=== PATIENT | female | born 1940 | race Caucasian/White ===

== ENCOUNTER 2016-06-14 09:46 | Outpatient (RCR) | payer MEDICARE ==
[2016-05-25 10:54] LABS: BASOPHILS # (AUTO) 0.1 10^3/uL (0.0-0.1); BASOPHILS % (AUTO) 1 % (0-10); EOSINOPHILS # (AUTO) 0.2 10^3/uL (0.0-0.3); EOSINOPHILS % (AUTO) 2 % (0-10); LYMPHOCYTES # (AUTO) 1.9 X 10^3 (1.0-4.0); LYMPHOCYTES % (AUTO) 24 % (12-44); MEAN CORPUSCULAR HEMOGLOBIN 30 PG (25-34); MEAN CORPUSCULAR HGB CONC 33 G/DL (32-36); MEAN CORPUSCULAR VOLUME 92 FL (80-99); MEAN PLATELET VOLUME 9.7 FL (7.4-10.4); MONOCYTES # (AUTO) 0.7 X 10^3 (0.0-1.0); MONOCYTES % (AUTO) 9 % (0-12); NEUTROPHILS # (AUTO) 4.9 X 10^3 (1.8-7.8); NEUTROPHILS % (AUTO) 64 % (42-75); PLATELET COUNT 251 10^3/uL (130-400); RED BLOOD COUNT 4.25 10^6/uL (4.35-5.85); RED CELL DISTRIBUTION WIDTH 14.1 % (10.0-14.5); WHITE BLOOD COUNT 7.8 10^3/uL (4.3-11.0)
[2016-05-25 11:43] LABS: ALBUMIN 4.1 G/DL (3.2-4.5); BILIRUBIN,TOTAL 0.6 MG/DL (0.1-1.0); CALCIUM 9.7 MG/DL (8.5-10.1)
[~2016-06-14 09:46] MED LIST: ALB.5NB20 HHN; ALPR.5T PO; ASP325T PO; CEFD300C3 PO; CHOL10002 PO; CPR500T PO; CYAN50003 PO; LEVO88TA26 PO; MELO-195 PO; MTF500T PO; MULT-974 PO; PIND5TAB PO; PRD20T PO; SIMV20TA3 PO; TEMA15CA54 PO; TRAM50TA2 PO; [UNRECOGNIZED DRUG - OTHER] PO
== END 2016-08-23 | disposition home or self-care (01) ==
LOC: ONC 09:46
PROVIDERS: ATTEND Internal Medicine Hematology & Oncology
DX: Z08 Encounter for follow-up examination after completed treatment for malignant neoplasm (principal); Z85.3 Personal history of malignant neoplasm of breast; I89.0 Lymphedema, not elsewhere classified; R91.8 Other nonspecific abnormal finding of lung field; E03.9 Hypothyroidism, unspecified; K21.9 Gastro-esophageal reflux disease without esophagitis; Z90.11 Acquired absence of right breast and nipple; Z79.899 Other long term (current) drug therapy
CPT/HCPCS: 36415; 80053; 85025; 86300; 99213; 99214

== ENCOUNTER 2016-07-29 15:44 | Outpatient (RCR) | payer MEDICARE | END 2016-08-23 14:40 | disposition home or self-care (01) | PROVIDERS: ATTEND Internal Medicine Hematology & Oncology | DX: I89.0 Lymphedema, not elsewhere classified (principal); Z85.3 Personal history of malignant neoplasm of breast; R91.8 Other nonspecific abnormal finding of lung field ==

== ENCOUNTER → 2016-09-02 | Outpatient (CLI) | payer MEDICARE ==
[~2016-09-02] MED LIST changes: +CATHETER FLUSH 10 ML SYR IV PRN
--- NOTE | 2016-09-02 16:15 | Diagnostic Imaging Report ---
Examination: Whole body bone scan. Technique: After the intravenous administration of 25 mCi of Technetium 99m MDP, whole body delayed phase bone scan images were obtained with lateral views of the head and neck and the chest regions. Indication: Breast cancer. Findings: The distribution of uptake in the osseous structures is physiologic with superimposed mild degenerative related activity seen and photopenia in the right knee suggestive of knee replacement with slightly more intense activity around the medial aspect of the tibial plateau area. There is also moderate uptake in the feet probably degenerative. No intense foci of increased activity, particularly in the axial skeleton to suggest metastatic disease. Urinary tract excretion is noted. Impression: No scintigraphic evidence of osseous metastasis. Dictated by: Dictated on workstation # [id number]
== END ==
LOC: CARD 12:03
PROVIDERS: ATTEND Internal Medicine
DX: G89.29 Other chronic pain (principal); R68.89 Other general symptoms and signs; Z85.3 Personal history of malignant neoplasm of breast
CPT/HCPCS: 78306

== ENCOUNTER 2016-10-25 09:39 | Outpatient (RCR) | payer MEDICARE ==
[2016-10-18 12:40] LABS: ALBUMIN 3.6 GM/DL (3.2-4.5); BILIRUBIN,TOTAL 0.6 MG/DL (0.1-1.0); CALCIUM 9.9 MG/DL (8.5-10.1); CREATININE SERUM 1.2 MG/DL (0.60-1.30); POTASSIUM 4.6 MMOL/L (3.6-5.0); TOTAL PROTEIN 6.5 GM/DL (6.4-8.2)
[2016-10-18 12:59] LABS: BASOPHILS % (AUTO) 0 % (0-10); EOSINOPHILS # (AUTO) 0.1 10^3/uL (0.0-0.3); EOSINOPHILS % (AUTO) 2 % (0-10); LYMPHOCYTES # (AUTO) 2.2 X 10^3 (1.0-4.0); LYMPHOCYTES % (AUTO) 25 % (12-44); MEAN CORPUSCULAR HEMOGLOBIN 31 PG (25-34); MEAN CORPUSCULAR HGB CONC 33 G/DL (32-36); MEAN CORPUSCULAR VOLUME 94 FL (80-99); MEAN PLATELET VOLUME 10.4 FL (7.4-10.4); MONOCYTES % (AUTO) 11 % (0-12); NEUTROPHILS # (AUTO) 5.5 X 10^3 (1.8-7.8); NEUTROPHILS % (AUTO) 62 % (42-75); PLATELET COUNT 278 10^3/uL (130-400); RED CELL DISTRIBUTION WIDTH 14.7 % (10.0-14.5); WHITE BLOOD COUNT 8.8 10^3/uL (4.3-11.0)
[~2016-10-25 09:39] MED LIST changes: -CATHETER FLUSH 10 ML SYR IV PRN
== END 2016-11-01 08:36 | disposition home or self-care (01) ==
LOC: ONC 09:39
PROVIDERS: ATTEND Internal Medicine Hematology & Oncology
DX: Z08 Encounter for follow-up examination after completed treatment for malignant neoplasm (principal); Z85.3 Personal history of malignant neoplasm of breast; I89.0 Lymphedema, not elsewhere classified; R91.8 Other nonspecific abnormal finding of lung field; E03.9 Hypothyroidism, unspecified; K21.9 Gastro-esophageal reflux disease without esophagitis; Z90.11 Acquired absence of right breast and nipple; Z79.899 Other long term (current) drug therapy
CPT/HCPCS: 36415; 80053; 85025; 86300; 99213

== ENCOUNTER → 2017-04-25 | Outpatient (CLI) | payer MEDICARE ==
[2017-04-25 14:10] LABS: BASOPHILS % (AUTO) 1 % (0-10); EOSINOPHILS # (AUTO) 0.2 10^3/uL (0.0-0.3); EOSINOPHILS % (AUTO) 3 % (0-10); HEMATOCRIT 33 % (35-52); HEMOGLOBIN 11.1 G/DL (11.5-16.0); LYMPHOCYTES % (AUTO) 29 % (12-44); MEAN CORPUSCULAR HEMOGLOBIN 31 PG (25-34); MEAN CORPUSCULAR HGB CONC 34 G/DL (32-36); MEAN CORPUSCULAR VOLUME 93 FL (80-99); MEAN PLATELET VOLUME 9.9 FL (7.4-10.4); MONOCYTES # (AUTO) 0.7 X 10^3 (0.0-1.0); MONOCYTES % (AUTO) 10 % (0-12); NEUTROPHILS % (AUTO) 58 % (42-75); PLATELET COUNT 287 10^3/uL (130-400); RED BLOOD COUNT 3.58 10^6/uL (4.35-5.85); RED CELL DISTRIBUTION WIDTH 13.9 % (10.0-14.5); WHITE BLOOD COUNT 6.9 10^3/uL (4.3-11.0)
[2017-04-25 14:31] LABS: ALANINE AMINOTRANSFERASE 16 U/L (0-55); ALBUMIN 3.8 GM/DL (3.2-4.5); ALKALINE PHOSPHATASE 51 U/L (40-136); BILIRUBIN,TOTAL < 0.1 MG/DL (0.1-1.0); BUN/CREATININE RATIO 18; CARBON DIOXIDE 28 MMOL/L (21-32); CHLORIDE 107 MMOL/L (98-107); CREATININE SERUM 1.22 MG/DL (0.60-1.30); GFR ESTIMATED 43; GLUCOSE 99 MG/DL (70-105); POTASSIUM 4.7 MMOL/L (3.6-5.0); SODIUM 139 MMOL/L (135-145); TOTAL PROTEIN 6.6 GM/DL (6.4-8.2)
== END ==
LOC: ONC 13:46
PROVIDERS: ATTEND Nurse Practitioner Adult Health
DX: Z08 Encounter for follow-up examination after completed treatment for malignant neoplasm (principal); Z85.3 Personal history of malignant neoplasm of breast; E03.9 Hypothyroidism, unspecified; K21.9 Gastro-esophageal reflux disease without esophagitis; Z90.11 Acquired absence of right breast and nipple; Z79.899 Other long term (current) drug therapy
CPT/HCPCS: 80053; 85025; 99213

== ENCOUNTER 2017-08-18 13:52 | Day surgery (SDC) | payer MEDICARE ==
[~2017-08-18] VITALS: Ht 168.9 cm; Wt 69.9 kg
--- OUTSIDE RECORDS SUMMARY | 2017-08-18 14:01 | XMS REPORT | Clinical Summary ---
Author Author [facility] Address Unknown Phone Unavailable Care Team Providers Care Rfid Engineer Name Role Phone Doctor, Miscellaneous Unavailable Unavailable Rosemary Osuna PA-C Unavailable Reynaldo Ordoñez MD Unavailable Tim Kaur MD Unavailable Martir Peterson MD Unavailable Celestino Arevalo MD Unavailable Sarabjit Pacheco MD Unavailable Earlene Armenta Unavailable Unavailable Zack Lowe MD Unavailable Chloe Alonso MD Unavailable Loida Reynolds RN Unavailable Unavailable Micki Hauser RN Unavailable Unavailable Argentina Trujillo LPN Unavailable Unavailable Mychart, Generic Provider Unavailable Unavailable Cecil Casanova MD Unavailable Grisel Dugan RN Unavailable Unavailable Malini Laureano Unavailable Unavailable Katharine Mauricio RN Unavailable Unavailable Annika King RN Unavailable Unavailable Emiliano Florez RN Unavailable Unavailable Pita Sheldon LPN Unavailable Unavailable Yaqueiln Alvarez MD Unavailable Yanira Fuchs MD PCP Source Comments Some departments are not documenting in the electronic medical record. If you do not see the information that you expected, contact Release of Information in the Health Information Management department at [phone] for further assistance in locating additional records.[facility] Allergies Active Allergy Reactions Severity Noted Date Comments Erythromycin RASH, SEE COMMENTS High 08/07/2012 Throat swelling, red rash Sulfa (Sulfonamide RASH, EDEMA High 07/22/2010 Throat swelling Antibiotics) Current Medications Prescription Sig. Disp. Refills Start End Date Status Date aspirin EC 325 mg tablet Take 325 mg by mouth Active daily. estrogens, conjugated(+) Insert or Apply 0.5 g to 1 Container 2 Active (PREMARIN) 0.625 mg/g vaginal area daily. Apply 15 vaginal cream 0.5g to the vagina, using the applicator, two times a week before bed. NEBULIZER ACCESSORIES Use as directed. Active MISC pindolol (VISKIN) 5 mg TAKE ONE TABLET BY MOUTH 90 Tab 1 03/21/19 Active tablet ONCE DAILY 16 clobetasol (TEMOVATE) APPLY A PEA SIZED AMOUNT 60 g 0 05/19/19 Active 0.05 % topical ointment THE THE VULVA DAILY 16 other medication Clobetasol 0.05% in 30 g 6 10/09/19 Active vaseline base apply BID x 16 4 weeks then taper as directed other medication Estradiol 0.01% in 50 g 3 10/09/19 Active vaseline base apply 0.5 16 gm to internal vulva twice weekly traMADol (ULTRAM) 50 mg TAKE ONE TABLET BY MOUTH 30 Tab 1 01/21/20 Active tablet EVERY 6 HOURS NEEDED 16 FOR PAIN meloxicam (MOBIC) 15 mg TAKE ONE TABLET BY MOUTH 30 Tab 0 04/13/19 Active tablet ONCE DAILY 17 levothyroxine (SYNTHROID) TAKE ONE TABLET BY MOUTH 90 Tab 3 04/29/19 Active 88 mcg tablet ONCE DAILY 30 MINUTES 17 BEFORE BREAKFAST meloxicam (MOBIC) 15 mg TAKE ONE TABLET BY MOUTH 30 Tab 1 04/29/19 Active tablet ONCE DAILY 17 temazepam (RESTORIL) 15 TAKE TWO CAPSULES BY 60 Cap 1 04/29/19 Active mg capsule MOUTH AT BEDTIME 17 NEEDED pindolol (VISKIN) 10 mg TAKE ONE-HALF TABLET BY 90 tablet 1 10/08/19 Active tablet MOUTH ONCE DAILY 17 Active Problems Problem Noted Date Pain disorder 10/22/2015 Discharge from the vagina 09/01/2015 Exposure of vaginal mesh through vaginal wall (HCC) 09/01/2015 Last Assessment & Plan: Doing well denies issues Content - PLAN FU in 6 mo Repeat pelvic examination Vulvar lesion 08/20/2015 Last Assessment & Plan: 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 Clinical improvement from Dr. Acharya's exam after stopping topical estrogen and clobetasol paradoxical and suggest there could have been an element of contact irritant dermatitis. One swab Done at the time of the exam negative for yeast. The left vulvar vestibule defect is most likely the prior bartholin's duct cyst marsupialization. 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 ([facility]) 04/17 Last Assessment & Plan: prior mesh exposure, s/p excision posterior wall Unable to appreciate any mesh exposure today - PLAN observe for now Rectocele, female 04/17/2012 Last Assessment & Plan: Stage II Symptomatic Having discomfort due to the posterior vaginal wall prolapse - yes Need for splinting - no Need for digitation - no Discussed need to avoid constipation and well as avoiding excessive Valsalva and weight management to ensure avoidance of worsening of prolapse Currently desires further management Suggested conservative management using pelvic floor physical therapy and support pessaries (whose results depend on the extent of the prolapse as well as the exact location in the posterior vaginal wall, with less improvement if closer to the vaginal opening) Mentioned surgical repairs involving houlton tissue repairs (using patient tissues and sutures) Mention mesh augmented repairs and discussed the FDA warning briefly (advised categorically against vaginally introduced mesh for posterior colporrhaphy based on literature) - PLAN Stressed to the patient that there is a recurrence of the prolapse at the site of the previous mesh excision and graft augmentation I suggested management of her diet and avoidance of constipation since she does not desire any surgical repairs. I stressed that with her vaginal sensitivity to pain as well as the erythema present we cannot proceed with a pessary placement. Uterine prolapse 04/17/2012 Dyspareunia, female 03/26/2012 Last Assessment & Plan: . Chronic pelvic pain in female 03/26/2012 Last Assessment & Plan: . Urinary tract infection 03/26/2012 Vaginal discharge 03/26/2012 Last Assessment & Plan: Persistent vaginal discharge pelvic examination only showing an area of erythema just past the introitus unable to assess for other sources of discharge today because the patient insisted on placing lidocaine jelly in the vagina prior to assessing her OneSwab was collected prior to the assessment No evidence of mesh exposure noted - PLAN I stressed to the patient that the mesh is not exposed and thus it is unlikely that it be the cause of the discharge however i did state that the pelvic examination Is limited due to the lidojet I suggested that the discharge could be due to the area of irritation in the vagina that is distant from the mesh implantation area Urinary tract infection, site not specified 03/26/2012 History of breast cancer 07/22/2010 Personal history of irradiation 07/22/2010 Dysphagia 07/22/2010 Resolved Problems Problem Noted Date Resolved Date DM (diabetes mellitus) (HCC) 05/08/2014 01/15/2016 Mass R alveolus 07/22/2010 11/27/2014 Immunizations Name Dates Previously Given Next Due Pneumococcal 11/27/2014 Vaccine([facility]/immunocompromised adult) Family History Medical History Relation Name Comments Basal Cell Carcinoma Father Cancer Father Cancer-Prostate Father Squamous Cell Carcinoma Father Stroke Father Arthritis-rheumatoid Maternal Grandfather Stroke Maternal Grandfather Arthritis-rheumatoid Maternal Grandmother Cancer-Colon Maternal Grandmother Cancer-Colon Maternal Uncle Basal Cell Carcinoma Mother Cancer Mother Squamous Cell Carcinoma Mother Stroke Paternal Grandmother Arthritis Son Relation Name Status Comments Father Maternal Grandfather Maternal Grandmother Maternal Uncle Mother Alive Paternal Grandmother Son Social History Tobacco Use Types Packs/Day Years Used Date Never Smoker Smokeless Tobacco: Never Used Tobacco Cessation: Counseling Given: No Alcohol Use Drinks/Week oz/Week Comments Yes seldom Sex Assigned at Date Recorded Not on file Last Filed Vital Signs Vital Sign Reading Time Taken Blood Pressure 122/73 01/15/2016 1:02 PM [facility] Pulse 80 01/15/2016 1:02 PM [facility] Temperature 36.4 C (97.6 F) 01/15/2016 1:02 PM [facility] Respiratory Rate 16 01/15/2016 1:02 PM [facility] Oxygen Saturation 95% 01/30/2015 3:06 PM [facility] Inhaled Oxygen - - Concentration Weight 71.6 kg (157 lb 12.8 oz) 01/15/2016 1:02 PM [facility] Height 163.8 cm (5' 4.49") 01/15/2016 1:02 PM [facility] Body Mass Index 26.68 01/15/2016 1:02 PM [facility] Plan of Treatment Health Maintenance Due Date Last Done Comments PERTUSSIS VACCINE 1951 TETANUS VACCINE 09/29/1959 SHINGLES RECOMBINANT 1992 VACCINE (1 of 2) PNEUMONIA (PCV13/PPSV23) 11/28/2015 11/27/2014 VACCINES (2 of 2 - PPSV23) BREAST CANCER SCREENING 03/12/2016 03/12/2015, 02/01/2014, 01/29/2013, Additional history exists PHYSICAL (COMPREHENSIVE) 01/14/2017 01/15/2016, 05/08/2014 (Previously EXAM completed) INFLUENZA VACCINE 11/07/2017 COLORECTAL CANCER 05/08/2021 05/09/2011 (Previously completed) SCREENING OSTEOPOROSIS SCREENING Addressed 05/08/2004 (Previously completed) Overridden with the intention of not completing the topic Results Not on filefrom Last 3 Months
--- OUTSIDE RECORDS SUMMARY | 2017-08-18 14:02 | XMS REPORT | Continuity of Care Document ---
Author Author [facility] Organization [facility] Address Unknown Phone Unavailable Allergies Active Description Code Type Severity Reaction Onset Reported/Identified Relationship to Patient Clinical Status Yes Sulfa (Sulfonamide Antibiotics) [id number] Drug Allergy Unknown N/A 2012 Yes erythromycin base [id number] Drug Allergy Unknown N/A 09/02/2016 Medications There is no data. Problems Date Dx Coded Attending Type Code Diagnosis Diagnosed By MARIELLA JESUS Ot E03.9 HYPOTHYROIDISM, UNSPECIFIED MARIELLA JESUS Ot I89.0 LYMPHEDEMA, NOT ELSEWHERE CLASSIFIED MARIELLA JESUS Ot K21.9 GASTRO-ESOPHAGEAL REFLUX DISEASE WITHOUT MARIELLA JESUS Ot R91.8 OTHER NONSPECIFIC ABNORMAL FINDING OF FÉLIX MARIELLA JESUS Ot Z08 ENCNTR FOR FOLLOW-UP EXAM AFTER TRTMT FO MARIELLA JESUS Ot Z79.899 OTHER CARE HOME (CURRENT) DRUG THERAPY MARIELLA JESUS Ot Z85.3 PERSONAL HISTORY OF MALIGNANT NEOPLASM O MARIELLA JESUS Ot Z90.11 ACQUIRED ABSENCE OF RIGHT BREAST AND NIP 01/06/1439 MARIELLA JESUS Ot I89.0 LYMPHEDEMA, NOT ELSEWHERE CLASSIFIED 01/06/1439 MARIELLA JESUS Ot R91.8 OTHER NONSPECIFIC ABNORMAL FINDING OF FÉLIX 01/06/1439 MARIELLA JESUS Ot Z85.3 PERSONAL HISTORY OF MALIGNANT NEOPLASM O 11/19/2010 Ot 562.10 DIVERTICULOSIS COLON (W/O MENT OF HEMORR 11/19/2010 Ot 569.3 RECTAL ANAL HEMORRHAGE 11/19/2010 Ot V12.72 PERSONAL HISTORY OF COLONIC POLYPS 06/15/2012 GATO BAILEY DO Ot 244.9 HYPOTHYROIDISM NOS 06/15/2012 ORENDER DO, GATO S Ot 250.00 DIAB PARESH WO COMPL, TYPE II OR UNSPEC TY 06/15/2012 ORENDER DO, GATO S Ot 401.9 HYPERTENSION NOS 06/15/2012 ORENDER DO, GATO S Ot 486 PNEUMONIA, ORGANISM NOS 06/15/2012 ORENDER DO, GATO S Ot 493.90 ASTHMA, UNSPECIFIED 06/15/2012 ORENDER DO, GATO S Ot 530.81 ESOPHAGEAL REFLUX 06/15/2012 ORENDER DO, GATO S Ot 564.1 IRRITABLE BOWEL SYNDROME 06/15/2012 ORENDER DO, GATO S Ot 784.0 HEADACHE 06/15/2012 ORENDER DO, GATO S Ot 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 06/15/2012 ORENDER DO, GATO S Ot V12.51 HX-VENOUS THROMBOSIS EMBOLISM 08/15/2012 ROLAND CAICEDO FACC, MAGGIE FACP CCDS Ot 244.9 HYPOTHYROIDISM NOS 08/15/2012 ROLAND CAICEDO FACC, MAGGIE FACP CCDS Ot 250.00 DIAB PARESH WO COMPL, TYPE II OR UNSPEC TY 08/15/2012 MAGGIE WATKINS MD, FACC FACP CCDS Ot 401.9 HYPERTENSION NOS 08/15/2012 ROLAND CAICEDO FACC, MAGGIE FACP CCDS Ot 414.01 CORONARY ATHEROSCLEROSIS OF [place] CORON 08/15/2012 ROLAND CAICEDO FACC, MAGGIE FACP CCDS Ot 530.81 ESOPHAGEAL REFLUX 08/15/2012 ROLAND CAICEDO FACC, MAGGIE FACP CCDS Ot 786.09 RESPIRATORY ABNORM NEC 08/15/2012 MAGGIE WATKINS MD, FACC FACP CCDS Ot V10.3 HX OF BREAST MALIGNANCY 08/15/2012 MAGGIE WATKINS MD, FACC FACP CCDS Ot V15.3 HX OF IRRADIATION 08/15/2012 MAGGIE WATKINS MD, FACC FACP CCDS Ot V17.49 FAMILY HISTORY OF OTHER CARDIOVASCULAR D 08/15/2012 MAGGIE WATKINS MD, FACC FACP CCDS Ot V58.66 LONG-TERM (CURRENT) USE OF ASPIRIN 08/15/2012 MAGGIE WATKINS MD, FACC FACP CCDS Ot V58.69 OTH MED,LT,CURRENT USE 08/15/2012 MAGGIE WATKINS MD, FACC FACP CCDS Ot V87.41 PERSONAL HISTORY OF ANTINEOPLASTIC CHEMO 09/04/2012 NINI HUGHES MD Ot 244.9 HYPOTHYROIDISM NOS 09/04/2012 NINI HUGHES MD Ot 250.00 DIAB PARESH WO COMPL, TYPE II OR UNSPEC TY 09/04/2012 NINI HUGHES MD Ot 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 09/04/2012 NINI HUGHES MD Ot 365.70 GLAUCOMA STAGE, UNSPECIFIED 09/04/2012 NINI HUGHES MD Ot 784.0 HEADACHE 09/04/2012 NINI HUGHES MD Ot V12.51 HX-VENOUS THROMBOSIS EMBOLISM 07/26/2014 FRANKLIN CAICEDO, BARB R Ot 722.4 08/08/2014 FRANKLIN CAICEDO, BARB R Ot 722.4 08/15/2014 FRANKLIN CAICEDO, BARB R Ot 722.4 01/28/2015 GARRETT CAICEDO, JEFFERSON Mercado Ot K85.9 ACUTE PANCREATITIS, UNSPECIFIED 01/28/2015 GARRETT CAICEDO, JEFFERSON Mercado Ot Z98.89 OTHER SPECIFIED POSTPROCEDURAL STATES 05/25/2016 Ot 719.40 JOINT PAIN- UNSPEC 05/25/2016 Ot V10.3 HX OF BREAST MALIGNANCY 05/25/2016 Ot 719.40 JOINT PAIN- UNSPEC 05/25/2016 Ot 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 DISC DEGEN 05/25/2016 Ot V10.3 HX OF BREAST MALIGNANCY 05/25/2016 Ot 616.0 CERVICITIS 05/25/2016 Ot 625.9 FEM GENITAL SYMPTOMS NOS 05/25/2016 GATO BAILEY DO Ot 786.05 SHORTNESS OF BREATH 05/25/2016 GATO BAILEY DO Ot 786.2 COUGH 05/25/2016 ROLAND CAICEDO FACC, MAGGIE FACP CCDS Ot 250.00 DIAB PARESH WO COMPL, TYPE II OR UNSPEC TY 05/25/2016 ROLAND CAICEDO FACC, MAGGIE FACP CCDS Ot 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 05/25/2016 ROLAND CAICEDO FACC, ALI FACP CCDS Ot 397.0 TRICUSPID VALVE DISEASE 05/25/2016 ROLAND CAICEDO FACC, MAGGIE FACP CCDS Ot 786.09 RESPIRATORY ABNORM NEC 05/25/2016 ROLAND CAICEDO FACC, ALI FACP CCDS Ot V72.81 [id number] CARDIOVASCULAR 05/25/2016 CHRISTIANONDER , GATO S Ot 486 PNEUMONIA, ORGANISM NOS 05/25/2016 CHRISTIANONDER DO, GATO S Ot 786.05 SHORTNESS OF BREATH 05/25/2016 CHRISTIANONDER DO, GATO S Ot V10.3 HX OF BREAST MALIGNANCY 05/25/2016 CHRISTIANONDER DO, GATO S Ot 786.2 COUGH 05/25/2016 CHRISTIANONDER DO, GATO S Ot 789.00 ABDOMINAL PAIN, UNSPECIFIED SITE 05/25/2016 CHRISTIANONDER DO, GATO S Ot V10.3 HX OF BREAST MALIGNANCY 05/25/2016 CHRISTIANONDER DO, GATO S Ot 573.8 LIVER DISORDERS NEC 05/25/2016 FRANKLIN CAICEDO, BARB R Ot 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 DISC DEGEN 06/30/2016 MARIELLA JESUS N Ot E03.9 HYPOTHYROIDISM, UNSPECIFIED 06/30/2016 MARIELLA JESUS N Ot I89.0 LYMPHEDEMA, NOT ELSEWHERE CLASSIFIED 06/30/2016 MARIELLA JESUS Ot K21.9 GASTRO-ESOPHAGEAL REFLUX DISEASE WITHOUT 06/30/2016 MARIELLA JESUS N Ot R91.8 OTHER NONSPECIFIC ABNORMAL FINDING OF FÉLIX 06/30/2016 MARIELLA JESUS N Ot Z08 ENCNTR FOR FOLLOW-UP EXAM AFTER TRTMT FO 06/30/2016 MARIELLA JESUS Ot Z79.899 OTHER CARE HOME (CURRENT) DRUG THERAPY 06/30/2016 MARIELLA JESUS N Ot Z85.3 PERSONAL HISTORY OF MALIGNANT NEOPLASM O 06/30/2016 MARIELLA JESUS N Ot Z90.11 ACQUIRED ABSENCE OF RIGHT BREAST AND NIP 07/07/2016 MARIELLA JESUS N Ot E03.9 HYPOTHYROIDISM, UNSPECIFIED 07/07/2016 MARIELLA JESUS N Ot I89.0 LYMPHEDEMA, NOT ELSEWHERE CLASSIFIED 07/07/2016 MARIELLA JESUS N Ot K21.9 GASTRO-ESOPHAGEAL REFLUX DISEASE WITHOUT 07/07/2016 ANN MARIE BOBDOUG N Ot R91.8 OTHER NONSPECIFIC ABNORMAL FINDING OF FÉLIX 07/07/2016 MARIELLA JESUS N Ot Z08 ENCNTR FOR FOLLOW-UP EXAM AFTER TRTMT FO 07/07/2016 MARIELLA JESUS N Ot Z79.899 OTHER FURNACE HAND (CURRENT) DRUG THERAPY 07/07/2016 ANN MARIE, BOBAN N Ot Z85.3 PERSONAL HISTORY OF MALIGNANT NEOPLASM O 07/07/2016 ANN MARIE BOBAN N Ot Z90.11 ACQUIRED ABSENCE OF RIGHT BREAST AND NIP 07/30/2016 ANN MARIE BOBAN N Ot I89.0 LYMPHEDEMA, NOT ELSEWHERE CLASSIFIED 07/30/2016 ANN MARIE BOBAN N Ot R91.8 OTHER NONSPECIFIC ABNORMAL FINDING OF FÉLIX 07/30/2016 ANN MARIE BOBAN N Ot Z85.3 PERSONAL HISTORY OF MALIGNANT NEOPLASM O 08/23/2016 ANN MARIE BOBAN N Ot E03.9 HYPOTHYROIDISM, UNSPECIFIED 08/23/2016 ANN MARIE BOBAN N Ot I89.0 LYMPHEDEMA, NOT ELSEWHERE CLASSIFIED 08/23/2016 ANN MARIE BOBAN N Ot K21.9 GASTRO-ESOPHAGEAL REFLUX DISEASE WITHOUT 08/23/2016 ANN MARIE, BOBAN N Ot R91.8 OTHER NONSPECIFIC ABNORMAL FINDING OF FÉLIX 08/23/2016 ANN MARIE, BOBAN N Ot Z08 ENCNTR FOR FOLLOW-UP EXAM AFTER TRTMT FO 08/23/2016 ANN MARIE BOBAN N Ot Z79.899 OTHER FURNACE HAND (CURRENT) DRUG THERAPY 08/23/2016 ANN MARIE BOBAN N Ot Z85.3 PERSONAL HISTORY OF MALIGNANT NEOPLASM O 08/23/2016 ANN MARIE BOBAN N Ot Z90.11 ACQUIRED ABSENCE OF RIGHT BREAST AND NIP 08/23/2016 ANN MARIE BOBAN N Ot I89.0 LYMPHEDEMA, NOT ELSEWHERE CLASSIFIED 08/23/2016 ANN MARIE BOBAN N Ot R91.8 OTHER NONSPECIFIC ABNORMAL FINDING OF FÉLIX 08/23/2016 ANN MARIEMARIELLA N Ot Z85.3 PERSONAL HISTORY OF MALIGNANT NEOPLASM O 09/02/2016 ANN MARIE BOBAN N Ot E03.9 HYPOTHYROIDISM, UNSPECIFIED 09/02/2016 ANN MARIE BOBAN N Ot I89.0 LYMPHEDEMA, NOT ELSEWHERE CLASSIFIED 09/02/2016 ANN MARIE BOBAN N Ot K21.9 GASTRO-ESOPHAGEAL REFLUX DISEASE WITHOUT 09/02/2016 ANN MARIE, BOBAN N Ot R91.8 OTHER NONSPECIFIC ABNORMAL FINDING OF FÉLIX 09/02/2016 ANN MARIE BOBAN N Ot Z08 ENCNTR FOR FOLLOW-UP EXAM AFTER TRTMT FO 09/02/2016 ANN MARIE BOBAN N Ot Z79.899 OTHER FURNACE HAND (CURRENT) DRUG THERAPY 09/02/2016 ANN MARIE, BOBAN N Ot Z85.3 PERSONAL HISTORY OF MALIGNANT NEOPLASM O 09/02/2016 MARIELLA JESUS Adelaide Ot Z90.11 ACQUIRED ABSENCE OF RIGHT BREAST AND NIP 09/07/2016 VERONIQUE ALEXANDRE MD Ot G89.29 OTHER CHRONIC PAIN 09/07/2016 VERONIQUE ALEXANDRE MD Ot R68.89 OTHER GENERAL SYMPTOMS AND SIGNS 09/07/2016 VERONIQUE ALEXANDRE MD Ot Z85.3 PERSONAL HISTORY OF MALIGNANT NEOPLASM O 09/07/2016 VERONIQUE ALEXANDRE MD Ot G89.29 OTHER CHRONIC PAIN 09/07/2016 VERONIQUE ALEXANDRE MD Ot R68.89 OTHER GENERAL SYMPTOMS AND SIGNS 09/07/2016 VERONIQUE ALEXANDRE MD Ot Z85.3 PERSONAL HISTORY OF MALIGNANT NEOPLASM O 09/07/2016 VERONIQUE ALEXANDRE MD Ot G89.29 OTHER CHRONIC PAIN 09/07/2016 VERONIQUE ALEXANDRE MD Ot R68.89 OTHER GENERAL SYMPTOMS AND SIGNS 09/07/2016 VERONIQUE ALEXANDRE MD Ot Z85.3 PERSONAL HISTORY OF MALIGNANT NEOPLASM O 09/07/2016 VERONIQUE ALEXANDRE MD Ot G89.29 OTHER CHRONIC PAIN 09/07/2016 VERONIQUE ALEXANDRE MD Ot R68.89 OTHER GENERAL SYMPTOMS AND SIGNS 09/07/2016 VERONIQUE AELXANDRE MD Ot Z85.3 PERSONAL HISTORY OF MALIGNANT NEOPLASM O 10/01/2016 VERONIQUE ALEXANDRE MD Ot G89.29 OTHER CHRONIC PAIN 10/01/2016 VERONIQUE ALEXANDRE MD Ot R68.89 OTHER GENERAL SYMPTOMS AND SIGNS 10/01/2016 VERONIQUE ALEXANDRE MD Ot Z85.3 PERSONAL HISTORY OF MALIGNANT NEOPLASM O 10/04/2016 VERONIQUE ALEXANDRE MD Ot G89.29 OTHER CHRONIC PAIN 10/04/2016 VERONIQUE ALEXANDRE MD Ot R68.89 OTHER GENERAL SYMPTOMS AND SIGNS 10/04/2016 VERONIQUE ALEXANDRE MD Ot Z85.3 PERSONAL HISTORY OF MALIGNANT NEOPLASM O 10/15/2016 RYLANDER GATO NAYLOR S Ot 786.05 SHORTNESS OF BREATH 10/15/2016 GATO BAILEY DO S Ot 786.2 COUGH 10/15/2016 ROLAND CAICEDO FACZaheer, MAGGIE FACP CCDS Ot 250.00 DIAB PARESH WO COMPL, TYPE II OR UNSPEC TY 10/15/2016 ROLAND CAICEDO FACC, MAGGIE FACP CCDS Ot 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 10/15/2016 ROLAND CAICEDO [facility], [facility] CCDS Ot 397.0 TRICUSPID VALVE DISEASE 10/15/2016 ROLAND CAICEDO [facility], [facility] CCDS Ot 786.09 RESPIRATORY ABNORM NEC 10/15/2016 ROLAND CAICEDO [facility], [facility] CCDS Ot V72.81 [id number] CARDIOVASCULAR 10/15/2016 ORENDER DO, GATO S Ot 486 PNEUMONIA, ORGANISM NOS 10/15/2016 ORENDER DO, GATO S Ot 786.05 SHORTNESS OF BREATH 10/15/2016 ORENDER DO, GATO S Ot V10.3 HX OF BREAST MALIGNANCY 10/15/2016 ORENDER DO, GATO S Ot 786.2 COUGH 10/15/2016 ORENDER DO, GATO S Ot 789.00 ABDOMINAL PAIN, UNSPECIFIED SITE 10/15/2016 ORENDER DO, GATO S Ot V10.3 HX OF BREAST MALIGNANCY 10/15/2016 ORENDER DO, GATO S Ot 573.8 LIVER DISORDERS NEC 10/15/2016 FRANKLIN CAICEDO, BARB R Ot 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 DISC DEGEN 10/15/2016 MARIELLA JESUS Ot E03.9 HYPOTHYROIDISM, UNSPECIFIED 10/15/2016 MARIELLA JESUS Ot I89.0 LYMPHEDEMA, NOT ELSEWHERE CLASSIFIED 10/15/2016 MARIELLA JESUS Ot K21.9 GASTRO-ESOPHAGEAL REFLUX DISEASE WITHOUT 10/15/2016 MARIELLA JESUS Ot R91.8 OTHER NONSPECIFIC ABNORMAL FINDING OF FÉLIX 10/15/2016 MARIELLA JESUS Ot Z08 ENCNTR FOR FOLLOW-UP EXAM AFTER TRTMT FO 10/15/2016 MARIELLA JESUS Ot Z79.899 OTHER FURNACE HAND (CURRENT) DRUG THERAPY 10/15/2016 MARIELLA JESUS Ot Z85.3 PERSONAL HISTORY OF MALIGNANT NEOPLASM O 10/15/2016 MARIELLA JESUS Ot Z90.11 ACQUIRED ABSENCE OF RIGHT BREAST AND NIP 10/15/2016 VERONIQUE ALEXANDRE MD Ot G89.29 OTHER CHRONIC PAIN 10/15/2016 VERONIQUE ALEXANDRE MD Ot R68.89 OTHER GENERAL SYMPTOMS AND SIGNS 10/15/2016 VERONIQUE ALEXANDRE MD Ot Z85.3 PERSONAL HISTORY OF MALIGNANT NEOPLASM O 10/18/2016 LEO NAYLOR GATO S Ot 786.05 SHORTNESS OF BREATH 10/18/2016 LEO NAYLOR GATO S Ot 786.2 COUGH 10/18/2016 ROLAND MARRERO, MAGGIE FACP CCDS Ot 250.00 DIAB PARESH WO COMPL, TYPE II OR UNSPEC TY 10/18/2016 ROLAND MARRERO, ALI FACP CCDS Ot 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 10/18/2016 ROLAND CAICEDO FACC, ALI FACP CCDS Ot 397.0 TRICUSPID VALVE DISEASE 10/18/2016 ROLAND CAICEDO [facility], ALI FACP CCDS Ot 786.09 RESPIRATORY ABNORM NEC 10/18/2016 ROLAND MARRERO, ALI FACP CCDS Ot V72.81 [id number] CARDIOVASCULAR 10/18/2016 RICCARDO BAILEY DOLINE S Ot 486 PNEUMONIA, ORGANISM NOS 10/18/2016 RYLANDANNETTE NAYLOR GATO S Ot 786.05 SHORTNESS OF BREATH 10/18/2016 RICCARDO BAILEY DOLINE S Ot V10.3 HX OF BREAST MALIGNANCY 10/18/2016 LEO VIANNEYGATO S Ot 786.2 COUGH 10/18/2016 RYLANDANNETTE NAYLOR GATO S Ot 789.00 ABDOMINAL PAIN, UNSPECIFIED SITE 10/18/2016 VIANNEY BAILEY DOQUELINE S Ot V10.3 HX OF BREAST MALIGNANCY 10/18/2016 LEO GATO S Ot 573.8 LIVER DISORDERS NEC 10/18/2016 FRANKLIN CAICEDO, BARB R Ot 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 DISC DEGEN 10/18/2016 MARIELLA JESUS Ot E03.9 HYPOTHYROIDISM, UNSPECIFIED 10/18/2016 MARIELLA JESUS Ot I89.0 LYMPHEDEMA, NOT ELSEWHERE CLASSIFIED 10/18/2016 MARIELLA JESUS Ot K21.9 GASTRO-ESOPHAGEAL REFLUX DISEASE WITHOUT 10/18/2016 MARIELLA JESUS Ot R91.8 OTHER NONSPECIFIC ABNORMAL FINDING OF FÉLIX 10/18/2016 MARIELLA JESUS Ot Z08 ENCNTR FOR FOLLOW-UP EXAM AFTER TRTMT FO 10/18/2016 MARIELLA JESUS Ot Z79.899 OTHER FURNACE HAND (CURRENT) DRUG THERAPY 10/18/2016 MARIELLA JESUS Ot Z85.3 PERSONAL HISTORY OF MALIGNANT NEOPLASM O 10/18/2016 MARIELLA JESUS Ot Z90.11 ACQUIRED ABSENCE OF RIGHT BREAST AND NIP 10/18/2016 VERONIQUE ALEXANDRE MD Ot G89.29 OTHER CHRONIC PAIN 10/18/2016 VERONIQUE ALEXANDRE MD Ot R68.89 OTHER GENERAL SYMPTOMS AND SIGNS 10/18/2016 VERONIQUE ALEXANDRE MD Ot Z85.3 PERSONAL HISTORY OF MALIGNANT NEOPLASM O 11/01/2016 MARIELLA JESUS Ot E03.9 HYPOTHYROIDISM, UNSPECIFIED 11/01/2016 MARIELLA JESUS Ot I89.0 LYMPHEDEMA, NOT ELSEWHERE CLASSIFIED 11/01/2016 MARIELLA JESUS Ot K21.9 GASTRO-ESOPHAGEAL REFLUX DISEASE WITHOUT 11/01/2016 MARIELLA JESUS Ot R91.8 OTHER NONSPECIFIC ABNORMAL FINDING OF FÉLIX 11/01/2016 MARIELLA JESUS Ot Z08 ENCNTR FOR FOLLOW-UP EXAM AFTER TRTMT FO 11/01/2016 MARIELLA JESUS Adelaide Ot Z79.899 OTHER CARE HOME (CURRENT) DRUG THERAPY 11/01/2016 MARIELLA JESUS [place] Ot Z85.3 PERSONAL HISTORY OF MALIGNANT NEOPLASM O 11/01/2016 MARIELLA JESUS N Ot Z90.11 ACQUIRED ABSENCE OF RIGHT BREAST AND NIP 04/26/2017 ANDREY LUCAS PERSONNEL QUALITY ASSURANCE AUDITOR Ot E03.9 HYPOTHYROIDISM, UNSPECIFIED 04/26/2017 ANDREY LUCAS S PERSONNEL QUALITY ASSURANCE AUDITOR Ot K21.9 GASTRO-ESOPHAGEAL REFLUX DISEASE WITHOUT 04/26/2017 ANDREY LUCAS PERSONNEL QUALITY ASSURANCE AUDITOR Ot Z08 ENCNTR FOR FOLLOW-UP EXAM AFTER TRTMT FO 04/26/2017 ANDREY LUCAS PERSONNEL QUALITY ASSURANCE AUDITOR Ot Z79.899 OTHER FURNACE HAND (CURRENT) DRUG THERAPY 04/26/2017 ANDREY LUCAS S PERSONNEL QUALITY ASSURANCE AUDITOR Ot Z85.3 PERSONAL HISTORY OF MALIGNANT NEOPLASM O 04/26/2017 ANDREY LUCAS S PERSONNEL QUALITY ASSURANCE AUDITOR Ot Z90.11 ACQUIRED ABSENCE OF RIGHT BREAST AND NIP 05/01/2017 ANDREY LUCAS PERSONNEL QUALITY ASSURANCE AUDITOR Ot E03.9 HYPOTHYROIDISM, UNSPECIFIED 05/01/2017 ANDREY LUCAS PERSONNEL QUALITY ASSURANCE AUDITOR Ot K21.9 GASTRO-ESOPHAGEAL REFLUX DISEASE WITHOUT 05/01/2017 ANDREY LUCAS S PERSONNEL QUALITY ASSURANCE AUDITOR Ot Z08 ENCNTR FOR FOLLOW-UP EXAM AFTER TRTMT FO 05/01/2017 ANDREY LUCAS PERSONNEL QUALITY ASSURANCE AUDITOR Ot Z79.899 OTHER FURNACE HAND (CURRENT) DRUG THERAPY 05/01/2017 ANDREY LUCAS PERSONNEL QUALITY ASSURANCE AUDITOR Ot Z85.3 PERSONAL HISTORY OF MALIGNANT NEOPLASM O 05/01/2017 ANDREY LUCAS PERSONNEL QUALITY ASSURANCE AUDITOR Ot Z90.11 ACQUIRED ABSENCE OF RIGHT BREAST AND NIP 05/26/2017 ANDREY LUCAS PERSONNEL QUALITY ASSURANCE AUDITOR Ot E03.9 HYPOTHYROIDISM, UNSPECIFIED 05/26/2017 ANDREY LUCAS PERSONNEL QUALITY ASSURANCE AUDITOR Ot K21.9 GASTRO-ESOPHAGEAL REFLUX DISEASE WITHOUT 05/26/2017 ANDREY LUCAS PERSONNEL QUALITY ASSURANCE AUDITOR Ot Z08 ENCNTR FOR FOLLOW-UP EXAM AFTER TRTMT FO 05/26/2017 ANDREY LUCASP Ot Z79.899 OTHER FURNACE HAND (CURRENT) DRUG THERAPY 05/26/2017 ANDREY LUCAS PERSONNEL QUALITY ASSURANCE AUDITOR Ot Z85.3 PERSONAL HISTORY OF MALIGNANT NEOPLASM O 05/26/2017 ANDREY LUCAS PERSONNEL QUALITY ASSURANCE AUDITOR Ot Z90.11 ACQUIRED ABSENCE OF RIGHT BREAST AND NIP 06/01/2017 Ot 518.89 06/01/2017 Ot 573.8 06/01/2017 Ot 733.90 06/01/2017 Ot 784.2 SWELLING IN HEAD NECK 06/01/2017 Ot 787.20 DYSPHAGIA, UNSPECIFIED 06/01/2017 Ot 719.40 JOINT PAIN- UNSPEC 06/01/2017 Ot V10.3 HX OF BREAST MALIGNANCY 06/01/2017 Ot 719.40 JOINT PAIN- UNSPEC 06/01/2017 Ot 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 DISC DEGEN 06/01/2017 Ot V10.3 HX OF BREAST MALIGNANCY 06/01/2017 Ot 616.0 CERVICITIS 06/01/2017 Ot 625.9 FEM GENITAL SYMPTOMS NOS 06/01/2017 GATO BAILEY DO S Ot 786.05 SHORTNESS OF BREATH 06/01/2017 GATO BAILEY DO S Ot 786.2 COUGH 06/01/2017 ROLAND CAICEDO FACC, MAGGIE FACP CCDS Ot 250.00 DIAB PARESH WO COMPL, TYPE II OR UNSPEC TY 06/01/2017 ROLAND CAICEDO FACC, MAGGIE FACP CCDS Ot 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 06/01/2017 ROLAND CAICEDO FACC, MAGGIE FACP CCDS Ot 397.0 TRICUSPID VALVE DISEASE 06/01/2017 ROLAND CAICEDO FACC, MAGGIE KHOURY CCDS Ot 786.09 RESPIRATORY ABNORM NEC 06/01/2017 ROLAND CAICEDO FACC, MAGGIE KHOURY CCDS Ot V72.81 IGRG-[id number] CARDIOVASCULAR 06/01/2017 LEO NAYLOR GATO S Ot 486 PNEUMONIA, ORGANISM NOS 06/01/2017 LEO NAYLOR GATO S Ot 786.05 SHORTNESS OF BREATH 06/01/2017 LEO NAYLOR GATO S Ot V10.3 HX OF BREAST MALIGNANCY 06/01/2017 LEO NAYLOR, GATO S Ot 786.2 COUGH 06/01/2017 LEO NAYLOR, GATO S Ot 789.00 ABDOMINAL PAIN, UNSPECIFIED SITE 06/01/2017 LEO NAYLOR GATO S Ot V10.3 HX OF BREAST MALIGNANCY 06/01/2017 LEO NAYLOR, GATO S Ot 573.8 LIVER DISORDERS NEC 06/01/2017 FRANKLIN CAICEDO, BARB Ewing Ot 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 DISC DEGEN 06/01/2017 ANDREY LUCAS PERSONNEL QUALITY ASSURANCE AUDITOR Ot E03.9 HYPOTHYROIDISM, UNSPECIFIED 06/01/2017 ANDREY LUCAS PERSONNEL QUALITY ASSURANCE AUDITOR Ot K21.9 GASTRO-ESOPHAGEAL REFLUX DISEASE WITHOUT 06/01/2017 ANDREY LUCAS PERSONNEL QUALITY ASSURANCE AUDITOR Ot Z08 ENCNTR FOR FOLLOW-UP EXAM AFTER TRTMT FO 06/01/2017 ANDREY LUCAS PERSONNEL QUALITY ASSURANCE AUDITOR Ot Z79.899 OTHER CARE HOME (CURRENT) DRUG THERAPY 06/01/2017 ANDREY LUCAS PERSONNEL QUALITY ASSURANCE AUDITOR Ot Z85.3 PERSONAL HISTORY OF MALIGNANT NEOPLASM O 06/01/2017 ANDREY LUCAS PERSONNEL QUALITY ASSURANCE AUDITOR Ot Z90.11 ACQUIRED ABSENCE OF RIGHT BREAST AND NIP 06/01/2017 CHRISTIANOKIMBERLY NAYLOR GATO S Ot 786.05 SHORTNESS OF BREATH 06/01/2017 CHRISTIANOKIMBERLY DO GATO S Ot 786.2 COUGH 06/01/2017 ROLAND CAICEDO FACC, MAGGIE MARREROP CCDS Ot 250.00 DIAB PARESH WO COMPL, TYPE II OR UNSPEC TY 06/01/2017 ROLAND CAICEDO FACC, MAGGIE FACP CCDS Ot 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 06/01/2017 ROLAND CAICEDO FACC, MAGGIE MARREROP CCDS Ot 397.0 TRICUSPID VALVE DISEASE 06/01/2017 ROLAND CAICEDO FACC, MAGGIE MARREROP CCDS Ot 786.09 RESPIRATORY ABNORM NEC 06/01/2017 ROLAND CAICEDO [facility], [facility] CCD[facility] Ot V72.81 [id number] CARDIOVASCULAR 06/01/2017 CHRISTIANONDER , GATO S Ot 486 PNEUMONIA, ORGANISM NOS 06/01/2017 CHRISTIANONDER DO, GATO S Ot 786.05 SHORTNESS OF BREATH 06/01/2017 CHRISTIANONDER DO, GATO S Ot V10.3 HX OF BREAST MALIGNANCY 06/01/2017 CHRISTIANONDER DO, GATO S Ot 786.2 COUGH 06/01/2017 ORENDER DO, GATO S Ot 789.00 ABDOMINAL PAIN, UNSPECIFIED SITE 06/01/2017 CHRISTIANONDER DO, GATO S Ot V10.3 HX OF BREAST MALIGNANCY 06/01/2017 CHRISTIANONDER DO, GATO S Ot 573.8 LIVER DISORDERS NEC 06/01/2017 FRANKLIN CAICEDO, BARB Ewing Ot 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 DISC DEGEN 06/01/2017 VERONIQUE ALEXANDRE MD Ot G89.29 OTHER CHRONIC PAIN 06/01/2017 VERONIQUE ALEXANDRE MD Ot R68.89 OTHER GENERAL SYMPTOMS AND SIGNS 06/01/2017 VERONIQUE ALEXANDRE MD Ot Z85.3 PERSONAL HISTORY OF MALIGNANT NEOPLASM O 06/01/2017 ANDREY LUCAS PERSONNEL QUALITY ASSURANCE AUDITOR Ot E03.9 HYPOTHYROIDISM, UNSPECIFIED 06/01/2017 ANDREY LUCAS PERSONNEL QUALITY ASSURANCE AUDITOR Ot K21.9 GASTRO-ESOPHAGEAL REFLUX DISEASE WITHOUT 06/01/2017 ANDREY LUCAS PERSONNEL QUALITY ASSURANCE AUDITOR Ot Z08 ENCNTR FOR FOLLOW-UP EXAM AFTER TRTMT FO 06/01/2017 ANDREY LUCAS PERSONNEL QUALITY ASSURANCE AUDITOR Ot Z79.899 OTHER FURNACE HAND (CURRENT) DRUG THERAPY 06/01/2017 ANDREY LUCAS PERSONNEL QUALITY ASSURANCE AUDITOR Ot Z85.3 PERSONAL HISTORY OF MALIGNANT NEOPLASM O 06/01/2017 ANDREY LUCAS PERSONNEL QUALITY ASSURANCE AUDITOR Ot Z90.11 ACQUIRED ABSENCE OF RIGHT BREAST AND NIP 08/18/2017 CHRISTIANONDER DO, GATO S Ot 786.05 SHORTNESS OF BREATH 08/18/2017 CHRISTIANONDER DO, GATO S Ot 786.2 COUGH 08/18/2017 ROLAND CAICEDO [facility] Ot 250.00 DIAB PARESH WO COMPL, TYPE II OR UNSPEC TY 08/18/2017 ROLAND CAICEDO FACC, MAGGIE KHOURY CCDS Ot 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 08/18/2017 ROLAND CAICEDO FACC, MAGGIE MARREROP CCDS Ot 397.0 TRICUSPID VALVE DISEASE 08/18/2017 ROLAND CAICEDO FACC, MAGGIE MARREROP CCDS Ot 786.09 RESPIRATORY ABNORM NEC 08/18/2017 ROLAND CAICEDO FACC, MAGGIE MARREROP CCDS Ot V72.81 XPFD-[id number] CARDIOVASCULAR 08/18/2017 ORENDER DO, GATO S Ot 486 PNEUMONIA, ORGANISM NOS 08/18/2017 ORENDER DO, GATO S Ot 786.05 SHORTNESS OF BREATH 08/18/2017 ORENDER DO, GATO S Ot V10.3 HX OF BREAST MALIGNANCY 08/18/2017 ORENDER DO, GATO S Ot 786.2 COUGH 08/18/2017 ORENDER DO, GATO S Ot 789.00 ABDOMINAL PAIN, UNSPECIFIED SITE 08/18/2017 ORENDER DO, GATO S Ot V10.3 HX OF BREAST MALIGNANCY 08/18/2017 CHRISTIANONDER DO, GATO S Ot 573.8 LIVER DISORDERS NEC 08/18/2017 FRANKLIN CAICEDO, BARB Ewing Ot 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 DISC DEGEN 08/18/2017 BALDOMERO CAICEDO, VERONIQUE Ot G89.29 OTHER CHRONIC PAIN 08/18/2017 BALDOMERO CAICEDO, VERONIQUE Ot R68.89 OTHER GENERAL SYMPTOMS AND SIGNS 08/18/2017 BALDOMERO CAICEDO, VERONIQUE Ot Z85.3 PERSONAL HISTORY OF MALIGNANT NEOPLASM O 08/18/2017 ANDREY LUCASP Ot E03.9 HYPOTHYROIDISM, UNSPECIFIED 08/18/2017 ANDREY LUCAS PERSONNEL QUALITY ASSURANCE AUDITOR Ot K21.9 GASTRO-ESOPHAGEAL REFLUX DISEASE WITHOUT 08/18/2017 ANDREY LUCAS PERSONNEL QUALITY ASSURANCE AUDITOR Ot Z08 ENCNTR FOR FOLLOW-UP EXAM AFTER TRTMT FO 08/18/2017 ANDREY LUCAS PERSONNEL QUALITY ASSURANCE AUDITOR Ot Z79.899 OTHER FURNACE HAND (CURRENT) DRUG THERAPY 08/18/2017 ANDREY LUCAS PERSONNEL QUALITY ASSURANCE AUDITOR Ot Z85.3 PERSONAL HISTORY OF MALIGNANT NEOPLASM O 08/18/2017 ANDREY LUCAS PERSONNEL QUALITY ASSURANCE AUDITOR Ot Z90.11 ACQUIRED ABSENCE OF RIGHT BREAST AND NIP Procedures There is no data. Results There is no data. Encounters ACCT No. Visit Date/Time Discharge Status Pt. Type Provider Facility Loc./Unit Complaint [id number] 04/25/2017 13:46:00 04/25/2017 23:59:59 CLS Outpatient ANDREY LUCAS [facility] ONC [id number] 10/25/2016 09:39:00 11/01/2016 08:36:00 DIS Outpatient MARIELLA JESUS [facility] ONC [id number] 10/18/2016 13:45:00 10/18/2016 23:59:59 CLS Preadmit MARIELLA JESUS [facility] RAD BREAST CANCER [id number] 09/02/2016 12:03:00 09/02/2016 23:59:59 CLS Outpatient VERONIQUE ALEXANDRE MD [facility] CARD CHRONIC PAIN R68.89 [id number] 07/29/2016 15:44:00 08/23/2016 14:40:00 DIS Outpatient MARIELLA JESUS [facility] REHAB LYMPHEDEMA OF ARM; BREAST CANCER [id number] 06/14/2016 09:46:00 08/23/2016 00:01:00 DIS Outpatient MARIELLA JESUS [facility] ONC [id number] 05/01/2015 14:50:00 05/01/2015 23:59:59 CLS Outpatient JUSTUS VINSON [facility] QUICK URINE CULTURE [id number] 03/08/2015 12:22:00 03/08/2015 23:59:59 CLS Outpatient HEIKE YORK APRN [facility] QUICK [id number] 01/28/2015 12:34:00 01/28/2015 15:56:00 DIS Emergency GARRETT CAICEDO, JEFFERSON Mercado [facility] ER ABD PAIN FEVER [id number] 07/10/2014 16:04:00 07/10/2014 23:59:59 CLS Outpatient FRANKLIN CAICEDO, BARB Ewing [facility] RAD NECK PAIN [id number] 10/15/2013 08:09:00 10/15/2013 23:59:59 CLS Outpatient GATO BAILEY DO [facility] RAD LIVER CYST [id number] 10/05/2013 09:53:00 10/05/2013 23:59:59 CLS Outpatient VIANNEY BAILEY DOQUELINE S [facility] RAD COUGH,ABD PAIN, HX OF BREAST CA [id number] 06/19/2013 14:27:00 06/19/2013 23:59:59 CLS Outpatient VIANNEY BAILEY DOQUELINE S [facility] [facility] RAD HX OF BREAST CA [id number] 09/04/2012 15:06:00 09/04/2012 17:49:00 DIS Emergency NINI HUGHES MD [facility] ER LEFT SIDE HEAD PAIN, REDUCED VISION [id number] 08/15/2012 07:14:00 08/15/2012 16:30:00 DIS Outpatient ROLAND CAICEDO FACC, ALI FACP CCDS [facility] CATH SOB,FATIGUE [id number] 08/11/2012 07:42:00 08/11/2012 23:59:59 CLS Outpatient ROLAND CAICEDO FACC, ALI FACP CCDS [facility] CARD DYSPNEA, DIABETES [id number] 06/21/2012 15:59:00 06/21/2012 23:59:59 CLS Outpatient RICCARDO BAILEY DOLINE S [facility] RAD SOB,COUGH [id number] 06/10/2012 10:25:00 06/15/2012 11:15:00 DIS Inpatient VIANNEY BAILEY DOQUELINE S [facility] 4TH PNEUMONIA [id number] 08/18/2017 13:57:00 ACT Emergency PERCY LASSITER DO [facility] ER CHEST PAIN [id number] 06/01/2017 09:54:00 Document Registration [id number] 06/01/2017 09:54:00 Document Registration [id number] 05/25/2016 09:07:00 Document Registration [id number] 12/23/2010 13:50:00 Document Registration [id number] 12/09/2010 13:19:00 Document Registration [id number] 12/07/2010 11:19:00 Document Registration [id number] 11/19/2010 06:41:00 Document Registration [id number] 04/14/2010 10:14:00 Document Registration [id number] 05/10/2008 10:18:00 Document Registration [id number] 09/29/2007 10:09:00 Document Registration
--- NOTE | 2017-08-18 14:08 | ED Chest Pain ---
General Stated Complaint: CHEST PAIN Source: patient Exam Limitations: no limitations History of Present Illness Date Seen by Provider: Aug 18, 2017 Time Seen by Provider: 14:05 Initial Comments to ER per private vehicle from home with reports of chest pain. Chest pain began about 30-45 minutes ago while she was loading up materials into her car at [employer]. She became very diaphoreticand slightly nauseated. The chest pain was right-sided she states it felt like a bruise and was rated at 8 out of 10. Upon arrival to ER she states that her pain is down to 3 out of 10. She does take a daily aspirin full dose and has already had this this morning.primary care is Dr. Alexandre in [place]. She sees a supervisor grips from [place] and had a heart catheter 8 years ago and states that he had some valvular disease but no stents to the coronary arteries. She is also seen Dr. Jackson in the past about 7 years ago and states that she was told that her coronary arteries look good at that time. Timing/Duration: 1 hour, intermittent Severity/Quality: moderate, other (right-sided radiating to the neck and the right arm. 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 NTG SL VEHICLE LEASING AND RENTAL MANAGER: No Associated Symptoms: No abdominal pain, No back pain; diaphoresis; No nausea/ vomiting Allergies and Home Medications Allergies Coded Allergies: Sulfa (Sulfonamide Antibiotics) (Unverified Allergy, Unknown, 08/15/12) erythromycin base (Unverified Allergy, Unknown, 09/02/16) Home Medications Aspirin 325 Mg Tab, 325 MG PO DAILY, (Reported) Levothyroxine Sodium 88 Mcg Tablet, 88 MCG PO DAILY, (Reported) Pindolol 5 Mg Tablet, 5 MG PO DAILY, (Reported) Patient Home Medication List Home Medication List Reviewed: Yes Review of Systems Constitutional: see HPI EENTM: No Symptoms Reported Respiratory: No Symptoms Reported Cardiovascular: See HPI, Chest Pain Gastrointestinal: See HPI, Nausea Genitourinary: No Symptoms Reported Musculoskeletal: no symptoms reported Skin: no symptoms reported Psychiatric/Neurological: No Symptoms Reported Endocrine: No Symptoms Reported Past Xiiorpb-Bumrnf-Wmmcww Hx Immunizations Up To Date Date of Pneumonia Vaccine: Nov 18, 2009 Seasonal Allergies Seasonal Allergies: Yes Past Medical History UTI-Chronic Gastroesophageal Reflux Arthritis Hypothyroidsim, Diabetes, Non-Insulin dep Breast Anxiety Family Medical History No Pertinent Family Hx Physical Exam Vital Signs Vital Signs - First Documented Capillary Refill : Height, Weight, BMI Height: 5'6" Weight: 170lbs. oz. 77.610979ij; BMI Method:Stated General Appearance: No Apparent Distress, WD/WN HEENT: PERRL/EOMI, TMs Normal Neck: Full Range of Motion, Normal Inspection Respiratory: Normal Breath Sounds, No Accessory Muscle Use, No Respiratory Distress Cardiovascular: Regular Rate, Rhythm, Normal Peripheral Pulses Gastrointestinal: Normal Bowel Sounds, Non Tender, Soft Extremity: Normal Capillary Refill, Normal Inspection, Other (chronic swelling RUE, chest nontender to palp, lung sounds equal. ) Neurologic/Psychiatric: Alert, Oriented x3, No Motor/Sensory Deficits Skin: Normal Color, Warm/Dry Progress/Results/Core Measures Results/Orders Lab Results Laboratory Tests Test 08/18/17 14:18 Range/Units White Blood Count 8.0 4.3-11.0 10^3/uL Red Blood Count 3.53 L 4.35-5.85 10^6/uL Hemoglobin 10.9 L 11.5-16.0 G/DL Hematocrit 32 L 35-52 % Mean Corpuscular Volume 92 80-99 FL Mean Corpuscular Hemoglobin 31 25-34 PG Mean Corpuscular Hemoglobin Concent 34 32-36 G/DL Red Cell Distribution Width 14.0 10.0-14.5 % Platelet Count 249 130-400 10^3/uL Mean Platelet Volume 9.5 7.4-10.4 FL Neutrophils (%) (Auto) 65 42-75 % Lymphocytes (%) (Auto) 23 12-44 % Monocytes (%) (Auto) 10 0-12 % Eosinophils (%) (Auto) 2 0-10 % Basophils (%) (Auto) 0 0-10 % Neutrophils # (Auto) 5.2 1.8-7.8 X 10^3 Lymphocytes # (Auto) 1.8 1.0-4.0 X 10^3 Monocytes # (Auto) 0.8 0.0-1.0 X 10^3 Eosinophils # (Auto) 0.2 0.0-0.3 10^3/uL Basophils # (Auto) 0.0 0.0-0.1 10^3/uL Prothrombin Time 13.2 12.2-14.7 SEC INR Comment 1.0 0.8-1.4 Activated Partial Thromboplast Time 27 24-35 SEC D-Dimer 0.45 0.00-0.49 UG/ML Sodium Level 139 135-145 MMOL/L Potassium Level 4.1 3.6-5.0 MMOL/L Chloride Level 109 H 98-107 MMOL/L Carbon Dioxide Level 23 21-32 MMOL/L Anion Gap 7 5-14 MMOL/L Blood Urea Nitrogen 26 H 7-18 MG/DL Creatinine 1.13 0.60-1.30 MG/DL Estimat Glomerular Filtration Rate 47 BUN/Creatinine Ratio 23 Glucose Level 113 H 70-105 MG/DL Calcium Level 9.4 8.5-10.1 MG/DL Magnesium Level 1.9 1.8-2.4 MG/DL Total Bilirubin 0.5 0.1-1.0 MG/DL Aspartate Amino Transf (AST/SGOT) 35 H 5-34 U/L Alanine Aminotransferase (ALT/SGPT) 19 0-55 U/L Alkaline Phosphatase 48 40-136 U/L Myoglobin 243.2 H 10.0-92.0 NG/ML Troponin I < 0.30 <0.30 NG/ML B-Type Natriuretic Peptide 145.2 H <100.0 PG/ML Total Protein 6.3 L 6.4-8.2 GM/DL Albumin 3.6 3.2-4.5 GM/DL My Orders Orders - DOMINGUEZ JAMES APRN Cbc With Automated Diff (08/18/17 14:04) Magnesium (08/18/17 14:04) Chest 1 View, Ap/Pa Only (08/18/17 14:04) Ekg Tracing (08/18/17 14:04) Cardiac Profile 1 (08/18/17 14:04) Comprehensive Metabolic Panel (08/18/17 14:04) Myoglobin Serum (08/18/17 14:04) Protime With Inr (08/18/17 14:04) Partial Thromboplastin Time (08/18/17 14:04) O2 (08/18/17 14:04) Monitor-Rhythm Ecg Trace Only (08/18/17 14:04) Lipid Panel (08/19/17 06:00) Saline Lock/Iv-Start (08/18/17 14:04) BNP (08/18/17 14:04) Fibrin Degradation Products (08/18/17 14:18) Vital Signs/I&O 08/18/17 08/18/17 14:01 14:01 Temp 98.1 Pulse 73 Resp 20 B/P (MAP) 150/79 (102) Pulse Ox 97 97 O2 Delivery Room Air Room Air Departure Communication (Admissions) Time/Spoke to Admitting Phy: 15:[address] Davis. We'll admit, consult Dr. Jackson Time/Spoke to Consulting Phy: 15:[address] Jackson. He agrees to consult. 1532-her chest pain is completely gone at this time she just feels "wiped out". Impression Primary Impression: Chest pain Disposition: ADMITTED INPATIENT Condition: Stable Admissions Decision to Admit Reason: Admit from ER (General) Decision to Admit/Date: Aug 18, 2017 Time/Decision to Admit Time: 14:37 Departure-Patient Inst. Referrals: VERONIQUE ALEXANDRE MD (PCP/Family) Primary Care Physician DOMINGUEZ JAMES APRN Aug 18, 2017 14:08
[2017-08-18 14:26] LABS: BASOPHILS % (AUTO) 0 % (0-10); EOSINOPHILS # (AUTO) 0.2 10^3/uL (0.0-0.3); EOSINOPHILS % (AUTO) 2 % (0-10); HEMATOCRIT 32 % (35-52); HEMOGLOBIN 10.9 G/DL (11.5-16.0); LYMPHOCYTES # (AUTO) 1.8 X 10^3 (1.0-4.0); LYMPHOCYTES % (AUTO) 23 % (12-44); MEAN CORPUSCULAR HEMOGLOBIN 31 PG (25-34); MEAN CORPUSCULAR HGB CONC 34 G/DL (32-36); MEAN CORPUSCULAR VOLUME 92 FL (80-99); MEAN PLATELET VOLUME 9.5 FL (7.4-10.4); MONOCYTES # (AUTO) 0.8 X 10^3 (0.0-1.0); MONOCYTES % (AUTO) 10 % (0-12); NEUTROPHILS # (AUTO) 5.2 X 10^3 (1.8-7.8); NEUTROPHILS % (AUTO) 65 % (42-75); PLATELET COUNT 249 10^3/uL (130-400); RED BLOOD COUNT 3.53 10^6/uL (4.35-5.85)
--- NOTE | 2017-08-18 14:34 | Diagnostic Imaging Report ---
INDICATION: Chest pain Portable chest 2:20 PM Heart size and pulmonary vascularity are normal. Lungs are clear. There are no effusions or pneumothoraces. IMPRESSION: No acute abnormalities in the chest. Dictated by: Dictated on workstation # [id number]
[2017-08-18 14:54] LABS: ALANINE AMINOTRANSFERASE 19 U/L (0-55); ALBUMIN 3.6 GM/DL (3.2-4.5); ALKALINE PHOSPHATASE 48 U/L (40-136); BILIRUBIN,TOTAL 0.5 MG/DL (0.1-1.0); BUN/CREATININE RATIO 23; CALCIUM 9.4 MG/DL (8.5-10.1); CARBON DIOXIDE 23 MMOL/L (21-32); CHLORIDE 109 MMOL/L (98-107); CREATININE SERUM 1.13 MG/DL (0.60-1.30); FIBRIN DEGRADATION PRODUCTS 0.45 UG/ML (0.00-0.49); GFR ESTIMATED 47; GLUCOSE 113 MG/DL (70-105); MAGNESIUM 1.9 MG/DL (1.8-2.4); POTASSIUM 4.1 MMOL/L (3.6-5.0); PROTHROMBIN TIME PATIENT 13.2 SEC (12.2-14.7); SODIUM 139 MMOL/L (135-145); TOTAL PROTEIN 6.3 GM/DL (6.4-8.2)
[2017-08-18 15:00] LABS: MYOGLOBIN SERUM 243.2 NG/ML (10.0-92.0)
--- NOTE | 2017-08-18 15:43 | Consultation-Cardiology ---
HPI-Cardiology Cardiology Consultation: Date of Consultation 08/18/17 Time Seen by Provider: 16:10 Date of Admission 08-18-17 Attending Physician Fior Davis DO Admitting Physician Yanira Fuchs MD Consulting Physician Alfredo Jackson MD HPI: Chief Complaint: Chest pain Ms. Hu is a 76 year old female admitted to 415 from the ED with c/o right sided chest pain. She reports she went to [employer] this afternoon. She was putting her purchases in her car when she developed a sudden onset of sharp upper abdominal pain which radiated to up to the right side of her chest. She reports she felt she needed to bend over d/t the severity of the pain. She also reports a tight band sensation across her chest. She reports feeling clammy and and nauseated. She states the discomfort persisted for greater than 30 minutes. She states she did drive herself home. She attempted to eat something, but felt some nausea. She reports by the time family arrived to her house to take her to the ED the pain had let up a little bit, but was still present. She describes it as constant. She denies any aggravating or alleviating factors. She denies any SOB or palpitations. She denies any syncope or near syncope. She reports by the time she reached the ED the pain had almost resolved. She states she is currently pain free. No c/o LE edema. No c/o fever or chills. Review of Systems-Cardiology Review of Systems Constitutional: No chills, No fever, No malaise Eyes: No blurred vision Ears/Nose/Throat: No epistaxis, No recent hearing loss Respiratory: As described under HPI Cardiovascular: As described under HPI Gastrointestinal: No constipation, No diarrhea; nausea; No vomiting Genitourinary: No dysuria, No hematuria : No Musculoskeletal: no symptoms reported Skin: No rash, No ulcerations Psychiatric/Neurological: anxiety; No seizure, No focal weakness, No syncope Hematologic: No bleeding abnormalities LET-Uqbmbr-Qqdwbg Hx Patient Social History Alcohol Use: Rarely Uses Recreational Drug Use: No Smoking Status: Never a Smoker 2nd Hand Smoke Exposure: Yes Recent Foreign Travel: No Recent Infectious Disease Expo: No Hospitalization with Isolation: Denies Immunizations Up To Date Tetanus Booster (TDap): More than 5yrs Date of Pneumonia Vaccine: Nov 18, 2009 Past Medical History PMH As described under Assessment. Family Medical History Family Medical History: She reports her mother and father both had CAD and a h/o SCD. Allergies and Home Medications Allergies Coded Allergies: Sulfa (Sulfonamide Antibiotics) (Unverified Allergy, Unknown, 08/15/12) erythromycin base (Unverified Allergy, Unknown, 09/02/16) Uncoded Allergies: CORTISOL (Adverse Reaction, Unknown, 08/18/17) PT STATES CAUSES PSYCHOSIS Home Medications Aspirin 325 Mg Tablet.dr, 325 MG PO DAILY, (Reported) Cholecalciferol (Vitamin D3) 5,000 Unit Capsule, 5,000 UNIT PO DAILY, (Reported) Clopidogrel Bisulfate 75 Mg Tablet, 75 MG PO DAILY Prescribed by: JENNIFER BACK on 08/21/17 0842 Cyanocobalamin (Vitamin B-12) 1,000 Mcg Tablet, 1,000 MCG PO DAILY, (Reported) Levothyroxine Sodium 88 Mcg Tablet, 88 MCG PO DAILY, (Reported) Meloxicam 15 Mg Tablet, 15 MG PO DAILY, (Reported) Pindolol 10 Mg Tablet, 5 MG PO DAILY, (Reported) TAKES 1/2 (10MG) TABLET Tramadol HCl 50 Mg Tablet, 50 MG PO DAILY, (Reported) Patient Home Medication List Home Medication List Reviewed: Yes Physical Exam-Cardiology Physical Exam Vital Signs/I&O 08/22/17 00:00 Intake Total 540 ml Output Total 600 ml Balance -60 ml Capillary Refill : Less Than 3 Seconds Constitutional: AAO x 3, well-developed, well-nourished HEENT: PERRL, hearing is well preserved, oral hygience is good Neck: No carotid bruit; carotid pulses are 2 + bilaterally Respiratory: No accessory muscle use, No respiratory distress; chest expansion is symmetric, lungs clear to auscultation Cardiovascular: regular rate-rhythm; No JVD, No S1 and S2 Gastrointestinal: No tender; soft, round, audible bowel sounds Rectal: deferred Extremities: no lower extremity edema bilateral Neurologic/Psychiatric: grossly intact, power is 5/5 both on sides Skin: No ulcerations Data Review Labs Radiology NAME: JESS HU [facility] REC#: [id number] PT STATUS: REG ER : 1940 PHYSICIAN: DOMINGUEZ JAMES APRN ADMIT DATE: 08/18/17/ER Signed Date of Exam: 08/18/17 CHEST 1 VIEW, AP/PA ONLY INDICATION: Chest pain Portable chest 2:20 PM Heart size and pulmonary vascularity are normal. Lungs are clear. There are no effusions or pneumothoraces. IMPRESSION: No acute abnormalities in the chest. Dictated by: Dictated on workstation # [id number] Dict: 08/18/17 1433 Trans: 08/18/17 1506 Interpreted by: NINI JARAMILLO MD Electronically signed by: NINI JARAMILLO MD 08/18/17 1506 A/P-Cardiology Assessment/Admission Diagnosis Chest pain of undetermined etiology Cardiac catheterization from 08/15/2012 showed moderate coronary artery disease involving the midright coronary artery and consisting of approximately 50% midvessel stenosis of the right coronary. The left anterior descending artery has diffuse mild plaque. Normal global left ventricular systolic function with an ejection fraction of approximately 55%. Mildly elevated left ventricular end -diastolic pressure. No significant mitral regurgitation Normal global left ventricular systolic function with an ejection fraction of approximately 55%. Mild mitral, aortic, and tricuspid regurgitation. Pulmonary artery systolic pressure is seen to be within normal limits. No evidence of significant valvular stenosis per echocardiogram from 08/11/2012. Mild anemia - medical services managing Mild liver enzyme elevation of undetermined etiology - medical services Gastroesophageal reflux . History of esophageal stricture dilation by Dr. Lopez in 2000. 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 Wick. 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 Maturity onset diabetes mellitus. Hypothyroidism being treated with thyroid replacement therapy. History of chest wall tumor removed in 1998. History of cholecystectomy. History of right total knee replacement several years ago. History of hypertension. History of maturity onset diabetes mellitus. Hyperlipidemia, however she is intolerant to statin therapy and does not wish to be on medication Discussion and Recomendations Chest pain of undetermined etiology - no evidence of ACS thus far Based on her symptoms, h/o and risk factors as listed above we advise further cardiac work up with an MPI to evaluate perfusion We advise echocardiogram to eval structure Mild anemia - medical services managing Mild AST elevation - medical services managing Monitor lab Continue tele Further recs will be based on her hospital course We would like to thank medical services for this consult Clinical Quality Measures AMI/AHF: ASA po Prior to arrival: Yes IAIN SANCHEZ Aug 18, 2017 15:43
[2017-08-18] MEDS ORDERED: MELO15TA39 PO (16:03)
[2017-08-18] MEDS ORDERED: LEVO88TA54 PO (16:03)
[2017-08-18] MEDS ORDERED: PIND10TA PO (16:03)
[2017-08-18] MEDS ORDERED: ONDANSETRON 4 MG/2 ML (SDV) Z0FRAN IVP PRN (16:15)
[2017-08-18 16:37] VITALS: BP 160/72
[2017-08-18] MEDS ORDERED: TRAM50TA2 PO (16:52)
[2017-08-18] MEDS ORDERED: ASPI325T32 PO (16:52)
[2017-08-18] MEDS ORDERED: CHOL5000 PO (16:54)
[2017-08-18] MEDS ORDERED: CYAN10006 PO (16:54)
--- NOTE | 2017-08-18 17:42 | Consultation-Cardiology ---
HPI-Cardiology Cardiology Consultation: Date of Consultation 08/18/17 Time Seen by Provider: 17:30 Date of Admission Attending Physician Fior Davis DO Admitting Physician Yanira Fuchs MD Consulting Physician MAGGIE WATKINS MD, MA, FACP, FACC, FSCAI, CCDS HPI: Chief Complaint: Chest pain Ms. Hu is a 76 year old female admitted to 415 from the ED with c/o right sided chest pain. She reports she went to [employer] this afternoon. She was putting her purchases in her car when she developed a sudden onset of sharp upper abdominal pain which radiated to up to the right side of her chest. She reports she felt she needed to bend over d/t the severity of the pain. She also reports a tight band sensation across her chest. She reports feeling clammy and and nauseated. She states the discomfort persisted for greater than 30 minutes. She states she did drive herself home. She attempted to eat something, but felt some nausea. She reports by the time family arrived to her house to take her to the ED the pain had let up a little bit, but was still present. She describes it as constant. She denies any aggravating or alleviating factors. She denies any SOB or palpitations. She denies any syncope or near syncope. She reports by the time she reached the ED the pain had almost resolved. She states she is currently pain free. No c/o LE edema. No c/o fever or chills. Review of Systems-Cardiology Review of Systems Constitutional: No chills, No fever, No malaise Eyes: No blurred vision Ears/Nose/Throat: No epistaxis, No recent hearing loss Respiratory: As described under HPI Cardiovascular: As described under HPI Gastrointestinal: No constipation, No diarrhea; nausea; No vomiting Genitourinary: No dysuria, No hematuria : No Musculoskeletal: no symptoms reported Skin: No rash, No ulcerations Psychiatric/Neurological: anxiety; No seizure, No focal weakness, No syncope Hematologic: No bleeding abnormalities RJQ-Bkfahq-Jlwpiy Hx Patient Social History Alcohol Use: Rarely Uses Recreational Drug Use: No Smoking Status: Never a Smoker 2nd Hand Smoke Exposure: Yes Recent Foreign Travel: No Recent Infectious Disease Expo: No Hospitalization with Isolation: Denies Immunizations Up To Date Tetanus Booster (TDap): More than 5yrs Date of Pneumonia Vaccine: Nov 18, 2009 Past Medical History PMH As described under Assessment. Family Medical History Family Medical History: She reports her mother and father both had CAD and a h/o SCD. Allergies and Home Medications Allergies Coded Allergies: Sulfa (Sulfonamide Antibiotics) (Unverified Allergy, Unknown, 08/15/12) erythromycin base (Unverified Allergy, Unknown, 09/02/16) Home Medications Aspirin 325 Mg Tablet.dr, 325 MG PO DAILY, (Reported) Cholecalciferol (Vitamin D3) 5,000 Unit Capsule, 5,000 UNIT PO DAILY, (Reported) Cyanocobalamin (Vitamin B-12) 1,000 Mcg Tablet, 1,000 MCG PO DAILY, (Reported) Levothyroxine Sodium 88 Mcg Tablet, 88 MCG PO DAILY, (Reported) Meloxicam 15 Mg Tablet, 15 MG PO DAILY, (Reported) Pindolol 10 Mg Tablet, 5 MG PO DAILY, (Reported) TAKES 1/2 (10MG) TABLET Tramadol HCl 50 Mg Tablet, 50 MG PO DAILY, (Reported) Patient Home Medication List Home Medication List Reviewed: Yes Physical Exam-Cardiology Physical Exam Vital Signs/I&O 08/18/17 08/18/17 08/18/17 08/18/17 14:01 14:01 14:01 16:00 Temp 98.1 Pulse 73 76 Resp 20 16 B/P (MAP) 150/79 (102) 158/81 Pulse Ox 97 97 98 O2 Delivery Room Air Room Air Room Air Room Air 08/18/17 08/18/17 16:37 17:20 Temp 99.1 Pulse 77 Resp 22 B/P (MAP) 160/72 (101) Pulse Ox 98 O2 Delivery Room Air Room Air Capillary Refill : Less Than 3 Seconds Constitutional: AAO x 3, well-developed, well-nourished HEENT: PERRL, hearing is well preserved, oral hygience is good Neck: No carotid bruit; carotid pulses are 2 + bilaterally Respiratory: No accessory muscle use, No respiratory distress; chest expansion is symmetric, lungs clear to auscultation Cardiovascular: regular rate-rhythm; No JVD, No S1 and S2 Gastrointestinal: No tender; soft, round, audible bowel sounds Rectal: deferred Extremities: no lower extremity edema bilateral Neurologic/Psychiatric: grossly intact, power is 5/5 both on sides Skin: No ulcerations Data Review Labs Laboratory Tests 08/18/17 14:18: White Blood Count 8.0, Red Blood Count 3.53L, Hemoglobin 10.9L, Hematocrit 32L, Mean Corpuscular Volume 92, Mean Corpuscular Hemoglobin 31, Mean Corpuscular Hemoglobin Concent 34, Red Cell Distribution Width 14.0, Platelet Count 249, Mean Platelet Volume 9.5, Neutrophils (%) (Auto) 65, Lymphocytes (%) (Auto) 23, Monocytes (%) (Auto) 10, Eosinophils (%) (Auto) 2, Basophils (%) (Auto) 0, Neutrophils # (Auto) 5.2, Lymphocytes # (Auto) 1.8, Monocytes # (Auto) 0.8, Eosinophils # (Auto) 0.2, Basophils # (Auto) 0.0, Prothrombin Time 13.2, INR Comment 1.0, Activated Partial Thromboplast Time 27, D-Dimer 0.45, Sodium Level 139, Potassium Level 4.1, Chloride Level 109H, Carbon Dioxide Level 23, Anion Gap 7, Blood Urea Nitrogen 26H, Creatinine 1.13, Estimat Glomerular Filtration Rate 47, BUN/Creatinine Ratio 23, Glucose Level 113H, Calcium Level 9.4, Magnesium Level 1.9, Total Bilirubin 0.5, Aspartate Amino Transf (AST/SGOT) 35H , Alanine Aminotransferase (ALT/SGPT) 19, Alkaline Phosphatase 48, Myoglobin 243.2H, Troponin I < 0.30, B-Type Natriuretic Peptide 145.2H, Total Protein 6.3L , Albumin 3.6 Laboratory Tests 08/18/17 14:18 A/P-Cardiology Assessment/Admission Diagnosis Chest pain of undetermined etiology Cardiac catheterization from 08/15/2012 showed moderate coronary artery disease involving the midright coronary artery and consisting of approximately 50% midvessel stenosis of the right coronary. The left anterior descending artery has diffuse mild plaque. Normal global left ventricular systolic function with an ejection fraction of approximately 55%. Mildly elevated left ventricular end -diastolic pressure. No significant mitral regurgitation Normal global left ventricular systolic function with an ejection fraction of approximately 55%. Mild mitral, aortic, and tricuspid regurgitation. Pulmonary artery systolic pressure is seen to be within normal limits. No evidence of significant valvular stenosis per echocardiogram from 08/11/2012. Mild anemia - medical services managing Mild liver enzyme elevation of undetermined etiology - medical services Gastroesophageal reflux . History of esophageal stricture dilation by Dr. Lopez in 2000. 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 Wick. 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 Maturity onset diabetes mellitus. Hypothyroidism being treated with thyroid replacement therapy. History of chest wall tumor removed in 1998. History of cholecystectomy. History of right total knee replacement several years ago. History of hypertension. History of maturity onset diabetes mellitus. Hyperlipidemia, however she is intolerant to statin therapy and does not wish to be on medication Anxiety disorder Discussion and Recomendations Chest pain of undetermined etiology - no evidence of ACS thus far Based on her symptoms, h/o and risk factors as listed above we advise further cardiac work up with an MPI to evaluate perfusion We advise echocardiogram to eval for structural heart disease Continue tele and monitor labs Further recs will be based on her hospital course I spoke with her and answered CV-related questions Clinical Quality Measures AMI/AHF: ASA po Prior to arrival: Yes MAGGIE WATKINS MD FACP FAC CCDS Aug 18, 2017 17:42
--- OUTSIDE RECORDS SUMMARY | 2017-08-18 18:04 | XMS REPORT | Clinical Summary ---
Author Author [facility] Organization [facility] Address Unknown Phone Unavailable Care Team Providers Care Classroom Teacher Name Role Phone Doctor, Miscellaneous Unavailable Unavailable [...] Unavailable Unavailable Pita Sheldon LPN Unavailable Unavailable Yaquelin Alvarez MD Unavailable Yanira Fuchs MD PCP Source Comments Some departments are not documenting in the electronic medical record. If you do not see the information that you expected, contact Release of Information in the Health Information Management department at [phone] for further assistance in locating additional records.[facility] Allergies Active Allergy Reactions Severity Noted Date [...] vaginal mesh to surrounding organ or tissue ([facility]) 04/17 Last Assessment & Plan: [...] the vaginal opening) Mentioned surgical repairs involving [place] tissue repairs (using patient tissues and sutures) [...] Taken Blood Pressure 122/73 01/15/2016 1:02 PM BIN WORKER Pulse 80 01/15/2016 1:02 PM BIN WORKER Temperature 36.4 C (97.6 F) 01/15/2016 1:02 PM BIN WORKER Respiratory Rate 16 01/15/2016 1:02 PM BIN WORKER Oxygen Saturation 95% 01/30/2015 3:06 PM BIN WORKER Inhaled Oxygen - - Concentration Weight 71.6 kg (157 lb 12.8 oz) 01/15/2016 1:02 PM BIN WORKER Height 163.8 cm (5' 4.49") 01/15/2016 1:02 PM BIN WORKER Body Mass Index 26.68 01/15/2016 1:02 PM BIN WORKER Plan of Treatment Health Maintenance Due Date [...]
--- OUTSIDE RECORDS SUMMARY | 2017-08-18 18:05 | XMS REPORT | Continuity of Care Document ---
Author Author [facility] Organization [facility] Address Unknown Phone Unavailable Allergies Active Description Code Type Severity Reaction Onset Reported/Identified Relationship to Patient Clinical Status Yes Sulfa (Sulfonamide Antibiotics) [id number] Drug Allergy Unknown N/A 2012 Yes erythromycin base [id number] Drug Allergy Unknown N/A 09/02/2016 Medications There [...] TRTMT FO MARIELLA JESUS Ot Z79.899 OTHER SHELTER (CURRENT) DRUG THERAPY MARIELLA JESUS Ot Z85.3 [...] FACP CCDS Ot 414.01 CORONARY ATHEROSCLEROSIS OF [place] CORON 08/15/2012 ROLAND CAICEDO FACC, MAGGIE FACP [...] CAICEDO FACC, ALI FACP CCDS Ot V72.81 [id number] CARDIOVASCULAR 05/25/2016 CHRISTIANONDER , GATO S Ot [...] FO 06/30/2016 MARIELLA JESUS Ot Z79.899 OTHER SHELTER (CURRENT) DRUG THERAPY 06/30/2016 MARIELLA JESUS N [...] 07/07/2016 MARIELLA JESUS N Ot Z79.899 OTHER MULTIMEDIA SERVICES COORDINATOR (CURRENT) DRUG THERAPY 07/07/2016 ANN MARIE, BOBAN [...] ANN MARIE BOBAN N Ot Z79.899 OTHER MULTIMEDIA SERVICES COORDINATOR (CURRENT) DRUG THERAPY 08/23/2016 ANN MARIE BOBAN [...] ANN MARIE BOBAN N Ot Z79.899 OTHER MULTIMEDIA SERVICES COORDINATOR (CURRENT) DRUG THERAPY 09/02/2016 ANN MARIE, BOBAN [...] 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 10/15/2016 ROLAND CAICEDO [facility], [facility] CCDS Ot 397.0 TRICUSPID VALVE DISEASE 10/15/2016 ROLAND CAICEDO [facility], [facility] CCDS Ot 786.09 RESPIRATORY ABNORM NEC 10/15/2016 ROLAND CAICEDO [facility], [facility] CCDS Ot V72.81 [id number] CARDIOVASCULAR 10/15/2016 ORENDER DO, GATO S Ot [...] FO 10/15/2016 MARIELLA JESUS Ot Z79.899 OTHER MULTIMEDIA SERVICES COORDINATOR (CURRENT) DRUG THERAPY 10/15/2016 MARIELLA JESUS Ot [...] 397.0 TRICUSPID VALVE DISEASE 10/18/2016 ROLAND CAICEDO [facility], ALI FACP CCDS Ot 786.09 RESPIRATORY ABNORM NEC 10/18/2016 ROLAND MARRERO, ALI FACP CCDS Ot V72.81 [id number]-[id number] CARDIOVASCULAR 10/18/2016 RICCARDO BAILEY DOLINE S Ot [...] FO 10/18/2016 MARIELLA JESUS Ot Z79.899 OTHER MULTIMEDIA SERVICES COORDINATOR (CURRENT) DRUG THERAPY 10/18/2016 MARIELLA JESUS Ot [...] 11/01/2016 MARIELLA JESUS [place] Ot Z79.899 OTHER SHELTER (CURRENT) DRUG THERAPY 11/01/2016 MARIELLA JESUS [place] Ot Z85.3 PERSONAL HISTORY OF MALIGNANT NEOPLASM O 11/01/2016 MARIELLA JESUS N Ot Z90.11 ACQUIRED ABSENCE OF RIGHT BREAST AND NIP 04/26/2017 ANDREY LUCAS ZIPPER REPAIRER Ot E03.9 HYPOTHYROIDISM, UNSPECIFIED 04/26/2017 ANDREY LUCAS S ZIPPER REPAIRER Ot K21.9 GASTRO-ESOPHAGEAL REFLUX DISEASE WITHOUT 04/26/2017 ANDREY LUCAS ZIPPER REPAIRER Ot Z08 ENCNTR FOR FOLLOW-UP EXAM AFTER TRTMT FO 04/26/2017 ANDREY LUCAS ZIPPER REPAIRER Ot Z79.899 OTHER MULTIMEDIA SERVICES COORDINATOR (CURRENT) DRUG THERAPY 04/26/2017 ANDREY LUCAS S ZIPPER REPAIRER Ot Z85.3 PERSONAL HISTORY OF MALIGNANT NEOPLASM O 04/26/2017 ANDREY LUCAS S ZIPPER REPAIRER Ot Z90.11 ACQUIRED ABSENCE OF RIGHT BREAST AND NIP 05/01/2017 ANDREY LUCAS ZIPPER REPAIRER Ot E03.9 HYPOTHYROIDISM, UNSPECIFIED 05/01/2017 ANDREY LUCAS ZIPPER REPAIRER Ot K21.9 GASTRO-ESOPHAGEAL REFLUX DISEASE WITHOUT 05/01/2017 ANDREY LUCAS S ZIPPER REPAIRER Ot Z08 ENCNTR FOR FOLLOW-UP EXAM AFTER TRTMT FO 05/01/2017 ANDREY LUCAS ZIPPER REPAIRER Ot Z79.899 OTHER MULTIMEDIA SERVICES COORDINATOR (CURRENT) DRUG THERAPY 05/01/2017 ANDREY LUCAS ZIPPER REPAIRER Ot Z85.3 PERSONAL HISTORY OF MALIGNANT NEOPLASM O 05/01/2017 ANDREY LUCAS ZIPPER REPAIRER Ot Z90.11 ACQUIRED ABSENCE OF RIGHT BREAST AND NIP 05/26/2017 ANDREY LUCAS ZIPPER REPAIRER Ot E03.9 HYPOTHYROIDISM, UNSPECIFIED 05/26/2017 ANDREY LUCAS ZIPPER REPAIRER Ot K21.9 GASTRO-ESOPHAGEAL REFLUX DISEASE WITHOUT 05/26/2017 ANDREY LUCAS ZIPPER REPAIRER Ot Z08 ENCNTR FOR FOLLOW-UP EXAM AFTER TRTMT FO 05/26/2017 ANDREY LUCASP Ot Z79.899 OTHER MULTIMEDIA SERVICES COORDINATOR (CURRENT) DRUG THERAPY 05/26/2017 ANDREY LUCAS ZIPPER REPAIRER Ot Z85.3 PERSONAL HISTORY OF MALIGNANT NEOPLASM O 05/26/2017 ANDREY LUCAS ZIPPER REPAIRER Ot Z90.11 ACQUIRED ABSENCE OF RIGHT BREAST [...] CAICEDO FACC, MAGGIE KHOURY CCDS Ot V72.81 [id number] CARDIOVASCULAR 06/01/2017 LEO NAYLOR GATO S Ot [...] 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 DISC DEGEN 06/01/2017 ANDREY LUCAS ZIPPER REPAIRER Ot E03.9 HYPOTHYROIDISM, UNSPECIFIED 06/01/2017 ANDREY LUCAS ZIPPER REPAIRER Ot K21.9 GASTRO-ESOPHAGEAL REFLUX DISEASE WITHOUT 06/01/2017 ANDREY LUCAS ZIPPER REPAIRER Ot Z08 ENCNTR FOR FOLLOW-UP EXAM AFTER TRTMT FO 06/01/2017 ANDREY LUCAS ZIPPER REPAIRER Ot Z79.899 OTHER SHELTER (CURRENT) DRUG THERAPY 06/01/2017 ANDREY LUCAS ZIPPER REPAIRER Ot Z85.3 PERSONAL HISTORY OF MALIGNANT NEOPLASM O 06/01/2017 ANDREY LUCAS ZIPPER REPAIRER Ot Z90.11 ACQUIRED ABSENCE OF RIGHT BREAST [...] 786.09 RESPIRATORY ABNORM NEC 06/01/2017 ROLAND CAICEDO [facility] CCD[facility] Ot V72.81 [id number] CARDIOVASCULAR 06/01/2017 CHRISTIANONDER , GATO S Ot [...] OF MALIGNANT NEOPLASM O 06/01/2017 ANDREY LUCAS ZIPPER REPAIRER Ot E03.9 HYPOTHYROIDISM, UNSPECIFIED 06/01/2017 ANDREY LUCAS ZIPPER REPAIRER Ot K21.9 GASTRO-ESOPHAGEAL REFLUX DISEASE WITHOUT 06/01/2017 ANDREY LUCAS ZIPPER REPAIRER Ot Z08 ENCNTR FOR FOLLOW-UP EXAM AFTER TRTMT FO 06/01/2017 ANDREY LUCAS ZIPPER REPAIRER Ot Z79.899 OTHER MULTIMEDIA SERVICES COORDINATOR (CURRENT) DRUG THERAPY 06/01/2017 ANDREY LUCAS ZIPPER REPAIRER Ot Z85.3 PERSONAL HISTORY OF MALIGNANT NEOPLASM O 06/01/2017 ANDREY LUCAS ZIPPER REPAIRER Ot Z90.11 ACQUIRED ABSENCE OF RIGHT BREAST AND NIP 08/18/2017 CHRISTIANONDER DO, GATO S Ot 786.05 SHORTNESS OF BREATH 08/18/2017 CHRISTIANONDER DO, GATO S Ot 786.2 COUGH 08/18/2017 ROLAND CAICEDO [facility] CCDS Ot 250.00 DIAB PARESH WO COMPL, TYPE II OR UNSPEC TY 08/18/2017 ROLAND CAICEDO FACC, MAGGIE KHOURY CCDS Ot 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 08/18/2017 ROLAND CAICEDO FACC, MAGGIE MARREROP CCDS Ot 397.0 TRICUSPID VALVE DISEASE 08/18/2017 ROLAND CAICEDO FACC, MAG[facility] CCDS Ot 786.09 RESPIRATORY ABNORM NEC 08/18/2017 ROLAND CAICEDO FACC, MAG[facility] CCDS Ot V72.81 [id number] CARDIOVASCULAR 08/18/2017 ORENDER DO, GATO S Ot [...] OF MALIGNANT NEOPLASM O 08/18/2017 ANDREY LUCAS ZIPPER REPAIRER Ot E03.9 HYPOTHYROIDISM, UNSPECIFIED 08/18/2017 ANDREY LUCAS ZIPPER REPAIRER Ot K21.9 GASTRO-ESOPHAGEAL REFLUX DISEASE WITHOUT 08/18/2017 ANDREY LUCAS ZIPPER REPAIRER Ot Z08 ENCNTR FOR FOLLOW-UP EXAM AFTER TRTMT FO 08/18/2017 ANDREY LUCAS ZIPPER REPAIRER Ot Z79.899 OTHER MULTIMEDIA SERVICES COORDINATOR (CURRENT) DRUG THERAPY 08/18/2017 ANDREY LUCAS ZIPPER REPAIRER Ot Z85.3 PERSONAL HISTORY OF MALIGNANT NEOPLASM O 08/18/2017 ANDREY LUCAS ZIPPER REPAIRER Ot Z90.11 ACQUIRED ABSENCE OF RIGHT BREAST AND NIP Procedures There is no data. Results Test Result Range Complete blood count (CBC) with automated white blood cell (WBC) differential - 08/18/17 14:18 Blood leukocytes automated count (number/volume) 8.0 10*3/uL 4.3-11.0 Blood erythrocytes automated count (number/volume) 3.53 10*6/uL 4.35-5.85 Venous blood hemoglobin measurement (mass/volume) 10.9 g/dL 11.5-16.0 Blood hematocrit (volume fraction) 32 % 35-52 Automated erythrocyte mean corpuscular volume 92 [foz_us] 80-99 Automated erythrocyte mean corpuscular hemoglobin (mass per erythrocyte) 31 pg 25-34 Automated erythrocyte mean corpuscular hemoglobin concentration measurement ( mass/volume) 34 g/dL 32-36 Automated erythrocyte distribution width ratio 14.0 % 10.0-14.5 Automated blood platelet count (count/volume) 249 10*3/uL 130-400 Automated blood platelet mean volume measurement 9.5 [foz_us] 7.4-10.4 Automated blood neutrophils/100 leukocytes 65 % 42-75 Automated blood lymphocytes/100 leukocytes 23 % 12-44 Blood monocytes/100 leukocytes 10 % 0-12 Automated blood eosinophils/100 leukocytes 2 % 0-10 Automated blood basophils/100 leukocytes 0 % 0-10 Blood neutrophils automated count (number/volume) 5.2 10*3 1.8-7.8 Blood lymphocytes automated count (number/volume) 1.8 10*3 1.0-4.0 Blood monocytes automated count (number/volume) 0.8 10*3 0.0-1.0 Automated eosinophil count 0.2 10*3/uL 0.0-0.3 Automated blood basophil count (count/volume) 0.0 10*3/uL 0.0-0.1 Comprehensive metabolic panel - 08/18/17 14:18 Serum or plasma sodium measurement (moles/volume) 139 mmol/L 135-145 Serum or plasma potassium measurement (moles/volume) 4.1 mmol/L 3.6-5.0 Serum or plasma chloride measurement (moles/volume) 109 mmol/L 98-107 Carbon dioxide 23 mmol/L 21-32 Serum or plasma anion gap determination (moles/volume) 7 mmol/L 5-14 Serum or plasma urea nitrogen measurement (mass/volume) 26 mg/dL 7-18 Serum or plasma creatinine measurement (mass/volume) 1.13 mg/dL 0.60-1.30 Serum or plasma urea nitrogen/creatinine mass ratio 23 NRG Serum or plasma creatinine measurement with calculation of estimated glomerular filtration rate 47 NRG Serum or plasma glucose measurement (mass/volume) 113 mg/dL 70-105 Serum or plasma calcium measurement (mass/volume) 9.4 mg/dL 8.5-10.1 Serum or plasma total bilirubin measurement (mass/volume) 0.5 mg/dL 0.1-1.0 Serum or plasma alkaline phosphatase measurement (enzymatic activity/volume) 48 U/L 40-136 Serum or plasma aspartate aminotransferase measurement (enzymatic activity/ volume) 35 U/L 5-34 Serum or plasma alanine aminotransferase measurement (enzymatic activity/volume ) 19 U/L 0-55 Serum or plasma protein measurement (mass/volume) 6.3 g/dL 6.4-8.2 Serum or plasma albumin measurement (mass/volume) 3.6 g/dL 3.2-4.5 Magnesium - 08/18/17 14:18 Magnesium 1.9 mg/dL 1.8-2.4 PT panel in platelet poor plasma by coagulation assay - 08/18/17 14:18 Prothrombin time (PT) in platelet poor plasma by coagulation assay 13.2 s 12.2-14.7 INR in platelet poor plasma or blood by coagulation assay 1.0 0.8-1.4 Activated partial thromboplastin time (aPTT) in platelet poor plasma bycoagulation assay - 08/18/17 14:18 Activated partial thromboplastin time (aPTT) in platelet poor plasma bycoagulation assay 27 s 24-35 Fibrin D-dimer FEU measurement in platelet poor plasma (mass/volume) - 14:18 Fibrin D-dimer FEU measurement in platelet poor plasma (mass/volume) 0.45 ug/mL 0.00-0.49 Serum or plasma lithium measurement (moles/volume) - 08/18/17 14:18 BNP level 145.2 pg/mL <100.0 Serum or plasma troponin i.cardiac measurement (mass/volume) - 08/18/17 14:18 Serum or plasma troponin i.cardiac measurement (mass/volume) < ng/ mL <0.30 Myoglobin, serum - 08/18/17 14:18 Myoglobin, serum 243.2 ng/mL 10.0-92.0 Encounters ACCT No. Visit Date/Time Discharge Status Pt. Type Provider Facility Loc./Unit Complaint [id number] 04/25/2017 13:46:00 04/25/2017 23:59:59 CLS Outpatient ANDREY LUCAS ZIPPER REPAIRER [facility] ONC [id number] 10/25/2016 09:39:00 11/01/2016 08:36:00 DIS Outpatient MARIELLA JESUS [facility] ONC [id number] 10/18/2016 13:45:00 10/18/2016 23:59:59 CLS Preadmit MARIELLA JESUS [facility] RAD BREAST CANCER [id number] 09/02/2016 12:03:00 09/02/2016 23:59:59 CLS Outpatient VERONIQUE ALEXANDRE MD [facility] CARD CHRONIC PAIN R68.89 [id number] 07/29/2016 15:44:00 08/23/2016 14:40:00 DIS Outpatient MARIELLA JESUS [facility] REHAB LYMPHEDEMA OF ARM; BREAST CANCER [id number] 06/14/2016 09:46:00 08/23/2016 00:01:00 DIS Outpatient MARIELLA JESUS [facility] ONC [id number] 05/01/2015 14:50:00 05/01/2015 23:59:59 CLS Outpatient JUSTUS VINSON [facility] QUICK URINE CULTURE [id number] 03/08/2015 12:22:00 03/08/2015 23:59:59 CLS Outpatient HEIKE YORK APRN [facility] QUICK [id number] 01/28/2015 12:34:00 01/28/2015 15:56:00 DIS Emergency JEFFERSON TUCKER MD [facility] ER ABD PAIN FEVER [id number] 07/10/2014 16:04:00 07/10/2014 23:59:59 CLS Outpatient BARB REID MD [facility] RAD NECK PAIN [id number] 10/15/2013 08:09:00 10/15/2013 23:59:59 CLS Outpatient CHRISTIANONDER DO, GATO S [facility] RAD LIVER CYST [id number] 10/05/2013 09:53:00 10/05/2013 23:59:59 CLS Outpatient CHRISTIANONDER DO, GATO S [facility] RAD COUGH,ABD PAIN, HX OF BREAST [place] [id number] 06/19/2013 14:27:00 06/19/2013 23:59:59 CLS Outpatient CHRISTIANONDER DO, GATO S [facility] RAD HX OF BREAST CA [id number] 09/04/2012 15:06:00 09/04/2012 17:49:00 DIS Emergency ELLEN CAICEDO, NINI Grissom [facility] ER LEFT SIDE HEAD PAIN, REDUCED VISION [id number] 08/15/2012 07:14:00 08/15/2012 16:30:00 DIS Outpatient ROLAND CAICEDO FACC, ALI FACP CCDS [facility] CATH SOB,FATIGUE [id number] 08/11/2012 07:42:00 08/11/2012 23:59:59 CLS Outpatient ROLAND CAICEDO FACC, ALI FACP CCDS [facility] CARD DYSPNEA, DIABETES [id number] 06/21/2012 15:59:00 06/21/2012 23:59:59 CLS Outpatient LEO DO, GATO S [facility] RAD SOB,COUGH [id number] 06/10/2012 10:25:00 06/15/2012 11:15:00 DIS Inpatient RYLANDER DO GATO S [facility] 4TH PNEUMONIA [id number] 08/18/2017 15:37:00 ACT Inpatient EMMANUEL VENTURA DO [facility] 4TH CHEST PAIN ON EXERTION [id number] 06/01/2017 09:54:00 Document Registration [id number] 06/01/2017 09:54:00 Document Registration [id number] 05/25/2016 09:07:00 Document Registration [id number] 12/23/2010 13:50:00 Document Registration [id number] 12/09/2010 13:19:00 Document Registration [id number] 12/07/2010 11:19:00 Document Registration [id number] 11/19/2010 06:41:00 Document Registration [id number] 04/14/2010 10:14:00 Document Registration [id number] 05/10/2008 10:18:00 Document Registration [id number] 09/29/2007 10:09:00 Document Registration
[2017-08-18 19:20] VITALS: BP 154/71
[2017-08-18] MEDS: MELOXICAM 7.5 MG (MOBIC) TABLET PO SCH (20:58)
[2017-08-18] MEDS ORDERED: CALCIUM CARBONATE 500 MG (TUMS) TAB.CHEW PO PRN (21:45)
[2017-08-18] MEDS ORDERED: ACETAMINOPHEN 500 MG TAB (TYLENOL) PO PRN (21:45)
[2017-08-18] MEDS: ALPRAZolam 0.5 MG (XANAX) TAB PO PRN (22:09)
[2017-08-19 00:18] VITALS: BP 141/69
[2017-08-19 04:17] VITALS: BP 143/72
[2017-08-19] MEDS: LEVOTHYROXINE 88 MCG (LEVOTHORID) TAB PO SCH (05:24)
[2017-08-19 06:42] LABS: CHOLESTEROL 182 MG/DL (< 200); HDL CHOLESTEROL 61 MG/DL (40-60); TRIGLYCERIDES 58 MG/DL (<150); VLDL CHOLESTEROL 12 MG/DL (5-40)
[2017-08-19] MEDS ORDERED: CATHETER FLUSH 10 ML SYR IV PRN (08:00)
[2017-08-19] MEDS: ALPRAZolam 0.5 MG (XANAX) TAB PO PRN ×2 (08:21→21:50)
[2017-08-19 08:31] LABS: MEAN PLATELET VOLUME 10.6 FL (7.4-10.4); RED BLOOD COUNT 3.65 10^6/uL (4.35-5.85); RED CELL DISTRIBUTION WIDTH 14.2 % (10.0-14.5); WHITE BLOOD COUNT 6.8 10^3/uL (4.3-11.0)
[2017-08-19 08:35] VITALS: BP 175/78
[2017-08-19] MEDS ORDERED: REGADENOSON 0.4 MG/5 ML SYR (LEXISCAN) IV ONE ×2 (08:38→09:45)
[2017-08-19 08:42] LABS: ALBUMIN 3.7 GM/DL (3.2-4.5); BILIRUBIN,TOTAL 0.7 MG/DL (0.1-1.0); CALCIUM 9.7 MG/DL (8.5-10.1); CREATININE SERUM 0.96 MG/DL (0.60-1.30); MAGNESIUM 2.1 MG/DL (1.8-2.4); POTASSIUM 3.9 MMOL/L (3.6-5.0); TOTAL PROTEIN 6.5 GM/DL (6.4-8.2)
[2017-08-19] MEDS ORDERED: PINDOLOL 5 MG PO SCH (09:00)
[2017-08-19] MEDS ORDERED: LEVOTHYROXINE 88 MCG (LEVOTHORID) TAB PO SCH (09:00)
[2017-08-19] MEDS ORDERED: ASPIRIN E.C. 325 MG (ECOTRIN) TABLET PO SCH ×2 (09:00)
--- NOTE | 2017-08-19 09:52 | Progress Note-Cardiology ---
Cardiology SOAP Progress Note Subjective: No c/o CP, palpitations, dyspnea, syncope or near syncope. Objective: I&O/Vital Signs 08/19/17 08/19/17 08/19/17 08/19/17 07:00 08:35 08:35 09:00 Temp 98.1 98.1 Pulse 76 78 78 Resp 20 20 B/P (MAP) 175/78 (110) 175/78 (110) Pulse Ox 99 99 O2 Delivery Room Air Room Air Room Air 08/19/17 08/19/17 08/19/17 12:00 13:00 16:00 Temp 99.4 98.4 Pulse 86 86 76 Resp 20 20 B/P (MAP) 146/66 (92) 161/67 (98) Pulse Ox 98 98 O2 Delivery Room Air Room Air 08/19/17 00:00 Intake Total 200 ml Output Total 1050 ml Balance -850 ml Weight (Pounds): 154 Weight (Ounces): 0.0 Weight (Calculated Kilograms): 69.738387 Constitutional: AAO x 3, well-developed, well-nourished Respiratory: No accessory muscle use, No respiratory distress; chest expansion is symmetric, lungs clear to auscultation Cardiovascular: regular rate-rhythm; No JVD, No S1 and S2 Gastrointestional: No tender; soft, round, audible bowel sounds Extremities: no lower extremity edema bilateral Neurologic/Psychiatric: grossly intact, power is 5/5 both on sides Skin: No ulcerations Results/Procedures: Labs Laboratory Tests 08/18/17 21:00: Troponin I < 0.30 08/19/17 01:55: Troponin I < 0.30 08/19/17 05:20: White Blood Count 6.8, Red Blood Count 3.65L, Hemoglobin 11.0L, Hematocrit 34L, Mean Corpuscular Volume 92, Mean Corpuscular Hemoglobin 30, Mean Corpuscular Hemoglobin Concent 33, Red Cell Distribution Width 14.2, Platelet Count 258, Mean Platelet Volume 10.6H, Sodium Level 140, Potassium Level 3.9, Chloride Level 109H, Carbon Dioxide Level 24, Anion Gap 7, Blood Urea Nitrogen 23H, Creatinine 0.96, Estimat Glomerular Filtration Rate 57, BUN/Creatinine Ratio 24 , Glucose Level 87, Calcium Level 9.7, Magnesium Level 2.1, Total Bilirubin 0.7 , Aspartate Amino Transf (AST/SGOT) 30, Alanine Aminotransferase (ALT/SGPT) 19, Alkaline Phosphatase 50, Total Protein 6.5, Albumin 3.7, Triglycerides Level 58 , Cholesterol Level 182, LDL Cholesterol Direct 111, VLDL Cholesterol 12, HDL Cholesterol 61H A/P: Assessment: Chest pain of undetermined etiology Cardiac catheterization from 08/15/2012 showed moderate coronary artery disease involving the midright coronary artery and consisting of approximately 50% midvessel stenosis of the right coronary. The left anterior descending artery has diffuse mild plaque. Normal global left ventricular systolic function with an ejection fraction of approximately 55%. Mildly elevated left ventricular end -diastolic pressure. No significant mitral regurgitation Normal global left ventricular systolic function with an ejection fraction of approximately 55%. Mild mitral, aortic, and tricuspid regurgitation. Pulmonary artery systolic pressure is seen to be within normal limits. No evidence of significant valvular stenosis per echocardiogram from 08/11/2012. Mild anemia - medical services managing Mild liver enzyme elevation of undetermined etiology - medical services Gastroesophageal reflux . History of esophageal stricture dilation by Dr. Lopez in 2000. 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 Wick. 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 Maturity onset diabetes mellitus. Hypothyroidism being treated with thyroid replacement therapy. History of chest wall tumor removed in 1998. History of cholecystectomy. History of right total knee replacement several years ago. History of hypertension. History of maturity onset diabetes mellitus. Hyperlipidemia, however she is intolerant to statin therapy and does not wish to be on medication Anxiety disorder Plan: Chest pain of undetermined etiology - no evidence of ACS thus far - MPI pendind Echocardiogram - pending Continue tele and monitor labs Further recs will be based on her hospital course We have spoke with her and answered CV-related questions Physician Assessment Physician Assessment Please also see my note of the same date, done at approx 6:15 pm Clinical Quality Measures AMI/AHF: ASA po Prior to arrival: Yes IAIN SANCHEZ LOSS PREVENTION/SAFETY DISTRICT MANAGER Aug 19, 2017 09:52 MAGGIE WATKINS MD FACP FACC CCDS Aug 19, 2017 18:13
--- NOTE | 2017-08-19 11:10 | Short Stay Summary-Hospitalist ---
History of Present Illness HPI/Chief Complaint CC: Chest pain HPI: This is a 76-year-old white female clinic patient of Lesli Fuchs, internal medicine in [facility], with past medical history of right-sided breast cancer managed by Dr. 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 She did have a cardiac catheterization in the past about [address] Jackson without stent placement but did show moderate disease without obstruction. She reports that she has not had any more chest pain since admission and her myocardial enzymes have been negative she did undergo a cardiac stress test and those results are pending at this current time. She reports that she is agreeable for discharge with close follow-up with her primary care provider as long as the heart test is normal. She has been under a lot of stress since her this year and her granddaughter has had an adrenal mass managed at the [place] and she is been going through a lot of worry and anxious about that. Source: patient Exam Limitations: no limitations Date Seen 08/19/17 Time Seen by Provider: 11:00 Attending Physician Fior Ventura Kimberly MD Referring Physician Date of Admission Aug 18, 2017 at 15:37 Home Medications & Allergies Home Medications Reviewed patient Home Medication Reconciliation performed by pharmacy medication reconciliations light technician and/or nursing. Patients Allergies have been reviewed. Allergies Allergies Coded Allergies Sulfa (Sulfonamide Antibiotics) (Unverified Allergy, Unknown, 08/15/12) erythromycin base (Unverified Allergy, Unknown, 09/02/16) Uncoded Allergies CORTISOL ( Adverse Reaction, Unknown, 08/18/17) PT STATES CAUSES PSYCHOSIS Past Vzdglfh-Colacu-Bfmfxo Hx Past Med/Social Hx: Reviewed Nursing Past Med/Soc Hx, Reviewed and Corrections made Patient Social History Marrital Status: Alcohol Use: Rarely Uses Number of Drinks Today: 0 Alcohol Beverage of Choice: Wine Recreational Drug Use: No Smoking Status: Never a Smoker 2nd Hand Smoke Exposure: Yes Physical Abuse Screen: No Sexual Abuse: No Recent Foreign Travel: No Contact w/other who traveled: No Recent Hopitalizations: No Recent Infectious Disease Expo: No Immunizations Up To Date Tetanus Booster (TDap): More than 5yrs Date of Pneumonia Vaccine: Nov 18, 2009 Seasonal Allergies Seasonal Allergies: Yes Past Medical History Surgeries: Adenoidectomy, Breast, Gallbladder, Orthopedic, Thyroidectomy, Tonsillectomy Currently Using CPAP: No Currently Using BIPAP: No Cardiac: Coronary Artery Disease Genitourinary: UTI-Chronic Gastrointestinal: Gastroesophageal Reflux, Irritable Bowel Musculoskeletal: Arthritis Endocrine: Hypothyroidsim HEENT: Cataract Loss of Vision: Denies Hearing Impairment: Denies Cancer: Breast What Type of Treatment Did You: Chemotherapy, Radiation, Surgical Intervention Psychosocial: Anxiety History of Blood Disorders: No Family History No Pertinent Family Hx Review of Systems Constitutional: diaphoresis EENTM: no symptoms reported Respiratory: short of breath Cardiovascular: chest pain Gastrointestinal: no symptoms reported Genitourinary: no symptoms reported Musculoskeletal: no symptoms reported Skin: no symptoms reported Psychiatric/Neurological: No Symptoms Reported All Other Systems Reviewed Negative Unless Noted: Yes Physical Exam Physical Exam Vital Signs Vital Signs - First Documented Capillary Refill : Less Than 3 Seconds Height, Weight, BMI Height: 5'6.50" Weight: 154lbs. 0.0oz. 69.028035dn; 24.5 BMI Method:Stated General Appearance: No Apparent Distress, WD/WN Eyes: Bilateral Eye Normal Inspection, Bilateral Eye PERRL HEENT: PERRL/EOMI, TMs Normal, Normal ENT Inspection, Pharynx Normal Neck: Full Range of Motion, Normal Inspection, Non Tender, Supple, Carotid Bruit Respiratory: Chest Non Tender, Lungs Clear, Normal Breath Sounds, No Accessory Muscle Use, No Respiratory Distress Cardiovascular: Regular Rate, Rhythm, No Edema, No Gallop, No JVD, No Murmur, Normal Peripheral Pulses Gastrointestinal: Normal Bowel Sounds, No Organomegaly, No Pulsatile Mass, Non Tender, Soft Back: Normal Inspection, No CVA Tenderness, No Vertebral Tenderness Extremity: Normal Capillary Refill, Normal Inspection, Normal Range of Motion, Non Tender, No Calf Tenderness, No Pedal Edema Neurologic/Psychiatric: Alert, Oriented x3, No Motor/Sensory Deficits, Normal Mood/Affect Skin: Normal Color, Warm/Dry Lymphatic: No Adenopathy Results Results/Procedures Labs Laboratory Tests 08/18/17 14:18 08/19/17 05:20 Patient resulted labs reviewed. Short Stay Diagnosis Discharge Diagnosis-Short Stay Admission Diagnosis Chest pain Elevated BNP h/o breast cancer right managed by Dr Mendoza HTN Hypothyroidism Final Discharge Diagnosis Chest pain of uncertain etiology Elevated BNP of uncertain etiology h/o breast cancer right managed by Dr Mendoza HTN Hypothyroidism Conclusion Plan Plan: check EST results Home meds If EST normal will need close f/u with Dr Fuchs her PCP Diagnosis/Problems Diagnosis/Problems (1) Chest pain Status: Acute Qualifiers: Qualified Codes: R07.9 - Chest pain, unspecified (2) Elevated brain natriuretic peptide (BNP) level Status: Acute (3) Hypothyroidism Status: Chronic Qualifiers: Qualified Codes: E03.9 - Hypothyroidism, unspecified (4) Hypertension Status: Chronic Qualifiers: Qualified Codes: I10 - Essential (primary) hypertension (5) History of right breast cancer Status: Chronic (6) Esophageal stricture Status: Chronic (7) Hyperlipidemia Status: Chronic Assessment & Plan: Refuses statins Qualifiers: Qualified Codes: E78.2 - Mixed hyperlipidemia (8) Elevated AST (SGOT) Status: Acute Assessment & Plan: Mild elevation, f/u PCP (9) Diabetes mellitus type 2, diet-controlled Status: Chronic Clinical Quality Measures AMI/AHF: ASA po Prior to arrival: Yes DVT/VTE Risk/Contraindication: Risk Factor Score Per Nursin RFS Level Per Nursing on Admit: 4+=Very High FIOR VENTURA DO Aug 19, 2017 11:10
[2017-08-19] MEDS: MELOXICAM 7.5 MG (MOBIC) TABLET PO SCH (11:19)
[2017-08-19] MEDS: CYANOCOBALAMIN 1,000 MCG (VITAMIN B-12) TABLET PO SCH (11:19)
[2017-08-19] MEDS: VITAMIN D3 5,000 UNITS (CHOLECALCIFEROL ) CAPSULE PO SCH (11:19)
[2017-08-19 12:00] VITALS: BP 146/66
[2017-08-19] MEDS ORDERED: CLOPIDOGREL 75 MG (PLAVIX) TABLET PO NR (14:45)
[2017-08-19 16:00] VITALS: BP 161/67
--- NOTE | 2017-08-19 18:18 | Progress Note-Cardiology ---
Cardiology SOAP Progress Note Subjective: No cp or palp or syncope or shortness of breath Objective: I&O/Vital Signs 08/19/17 08/19/17 08/19/17 08/19/17 07:00 08:35 08:35 09:00 Temp 98.1 98.1 Pulse 76 78 78 Resp 20 20 B/P (MAP) 175/78 (110) 175/78 (110) Pulse Ox 99 99 O2 Delivery Room Air Room Air Room Air 08/19/17 08/19/17 08/19/17 12:00 13:00 16:00 Temp 99.4 98.4 Pulse 86 86 76 Resp 20 20 B/P (MAP) 146/66 (92) 161/67 (98) Pulse Ox 98 98 O2 Delivery Room Air Room Air 08/19/17 00:00 Intake Total 200 ml Output Total 1050 ml Balance -850 ml Weight (Pounds): 154 Weight (Ounces): 0.0 Weight (Calculated Kilograms): 69.972449 Constitutional: AAO x 3, well-developed, well-nourished Respiratory: No accessory muscle use, No respiratory distress; chest expansion is symmetric, lungs clear to auscultation Cardiovascular: regular rate-rhythm; No JVD, No S1 and S2 Gastrointestional: No tender; soft, round, audible bowel sounds Extremities: no lower extremity edema bilateral Neurologic/Psychiatric: grossly intact, power is 5/5 both on sides Skin: No ulcerations Results/Procedures: Labs Laboratory Tests 08/18/17 21:00: Troponin I < 0.30 08/19/17 01:55: Troponin I < 0.30 08/19/17 05:20: White Blood Count 6.8, Red Blood Count 3.65L, Hemoglobin 11.0L, Hematocrit 34L, Mean Corpuscular Volume 92, Mean Corpuscular Hemoglobin 30, Mean Corpuscular Hemoglobin Concent 33, Red Cell Distribution Width 14.2, Platelet Count 258, Mean Platelet Volume 10.6H, Sodium Level 140, Potassium Level 3.9, Chloride Level 109H, Carbon Dioxide Level 24, Anion Gap 7, Blood Urea Nitrogen 23H, Creatinine 0.96, Estimat Glomerular Filtration Rate 57, BUN/Creatinine Ratio 24 , Glucose Level 87, Calcium Level 9.7, Magnesium Level 2.1, Total Bilirubin 0.7 , Aspartate Amino Transf (AST/SGOT) 30, Alanine Aminotransferase (ALT/SGPT) 19, Alkaline Phosphatase 50, Total Protein 6.5, Albumin 3.7, Triglycerides Level 58 , Cholesterol Level 182, LDL Cholesterol Direct 111, VLDL Cholesterol 12, HDL Cholesterol 61H Laboratory Tests 08/18/17 14:18 08/19/17 05:20 A/P: Assessment: New onset angina. MPI of 08/19/17 shows mod inferior ischemia with normal LVEF Cardiac catheterization from 08/15/2012 showed moderate coronary artery disease involving the midright coronary artery and consisting of approximately 50% midvessel stenosis of the right coronary. The left anterior descending artery has diffuse mild plaque. Normal global left ventricular systolic function with an ejection fraction of approximately 55%. Mildly elevated left ventricular end -diastolic pressure. No significant mitral regurgitation Normal global left ventricular systolic function with an ejection fraction of approximately 55%. Mild mitral, aortic, and tricuspid regurgitation. Pulmonary artery systolic pressure is seen to be within normal limits. No evidence of significant valvular stenosis per echocardiogram from 08/11/2012. Mild anemia - medical services managing Mild liver enzyme elevation of undetermined etiology - medical services Gastroesophageal reflux . History of esophageal stricture dilation by Dr. Lopez in 2000. 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 Wick. 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 Maturity onset diabetes mellitus. Hypothyroidism being treated with thyroid replacement therapy. History of chest wall tumor removed in 1998. History of cholecystectomy. History of right total knee replacement several years ago. History of hypertension. History of maturity onset diabetes mellitus. Hyperlipidemia, however she is intolerant to statin therapy and does not wish to be on medication Anxiety disorder Plan: Given symptoms and risk factors and today's abnormal stress test, we recommend card cath We discussed her card w/u with her in detail We reviewed and discussed the rationale, procedure, risks, benefits, potential complications and alternatives of card cath and possible ad hoc cor intervention with her. She understands and provides informed consent We recommend therapy with aspirin, clopidogrel, beta-hunter and statin. She refuses statin Clinical Quality Measures AMI/AHF: ASA po Prior to arrival: Yes MAGGIE WATKINS MD FACP FAC CCDS Aug 19, 2017 18:18
[2017-08-19 20:04] VITALS: BP 135/65
--- NOTE | 2017-08-19 21:29 | STRESS TEST ---
DATE OF SERVICE: 08/19/2017 RESTING AND POST REGADENOSON TECHNETIUM 99M TETROFOSMIN SPECT CT IMAGING ORDERING PHYSICIAN: Ana Lott APRN PRIMARY CARE PHYSICIAN: Dr. Fuchs. OTHER PHYSICIAN: Dr. Davis. CLINICAL DIAGNOSIS: Chest discomfort, coronary artery disease. Baseline images were carried out after injection of 10.92 mCi of technetium-99m Tetrofosmin. This was followed by 0.4 mg regadenoson and 31.5 mCi technetium-99m Tetrofosmin for stress imaging. The electrocardiogram showed sinus rhythm at baseline. It did not change significantly with the regadenoson infusion. Isolated premature ventricular contractions were seen, sometimes in a bigeminal pattern. There appeared to be rate-related left bundle branch block. Review of images at rest and following stress indicates a predominantly transient inferior perfusion defect. Gated images show normal global left ventricular systolic function with normal regional wall motion. Left ventricular ejection fraction is calculated to be 52%. Left ventricular end diastolic volume is 69 mL. TID is absent (1.05). CONCLUSIONS: 1. Inferior ischemia, moderate. 2. Normal regional wall motion. 3. Normal global left ventricular systolic function with an ejection fraction of 52%. 4. Rate-related left bundle branch block. Job ID: [id number] DocumentID: [id number] Dictated Date: 08/19/2017 17:05:55 Senior Media Director Date: 08/19/2017 21:28:56 Dictated By: MAGGIE WATKINS MD, MA, FACP, FACC,
[2017-08-20] VITALS (19 sets, daily range): BP systolic 102–150; BP diastolic 59–82
[2017-08-20] MEDS: LEVOTHYROXINE 88 MCG (LEVOTHORID) TAB PO SCH (05:58)
[2017-08-20 06:46] LABS: HEMOGLOBIN 11.4 G/DL (11.5-16.0); RED BLOOD COUNT 3.71 10^6/uL (4.35-5.85); WHITE BLOOD COUNT 7.3 10^3/uL (4.3-11.0)
[2017-08-20 06:59] LABS: PROTHROMBIN TIME PATIENT 13.4 SEC (12.2-14.7)
[2017-08-20 07:04] LABS: CALCIUM 9.3 MG/DL (8.5-10.1); CREATININE SERUM 1.02 MG/DL (0.60-1.30); POTASSIUM 4.4 MMOL/L (3.6-5.0)
[2017-08-20] MEDS ORDERED: NS IV 1000 ML 1,000 ML IV SCH ×2 (08:00→13:02)
[2017-08-20] MEDS: VITAMIN D3 5,000 UNITS (CHOLECALCIFEROL ) CAPSULE PO SCH (08:19)
[2017-08-20] MEDS: ASPIRIN 81 MG CHEW (CHILDREN'S ASA) PO SCH (08:19)
[2017-08-20] MEDS: CLOPIDOGREL 75 MG (PLAVIX) TABLET PO SCH (08:19)
[2017-08-20] MEDS: CYANOCOBALAMIN 1,000 MCG (VITAMIN B-12) TABLET PO SCH (08:19)
[2017-08-20] MEDS ORDERED: HEParin (CATH LAB) 2,000 ML IV ONE (09:08)
[2017-08-20] MEDS ORDERED: NS IV 1000 ML 0 ML ONE (09:08)
[2017-08-20] MEDS ORDERED: LIDOCAINE 1% INJ 20 ML 20 ML VIAL ONE (09:08)
[2017-08-20] MEDS ORDERED: MIDAZOLAM 5 MG/5 ML (VERSED) VIAL ONE (11:13)
[2017-08-20] MEDS ORDERED: diphenhydrAMINE 50 MG/ML INJ (BENADRYL) ONE (11:13)
[2017-08-20] MEDS ORDERED: fentaNYL INJECTION 100 MCG/2 ML AMP ONE (11:13)
--- NOTE | 2017-08-20 11:22 | Cardiac Procedure Note-CS/ASA ---
Pre-Procedure Note Pre-Op Procedure Note H&P Reviewed The H&P was reviewed, patient examined and no changes noted. Date H&P Reviewed: Aug 20, 2017 Time H&P Reviewed: : Conscious Sedation Pre-Proced Time Reviewed: : ASA Class: 3 Airway Mallampati Classification: ([place] appropriate class) I. II. III, IV Lungs Heart ASA score ASA 1: a normal healthy patient ASA 2: a patient with a mild systemic disease (mid diabetes, controlled hypertension, obesity ASA 3: a patient with a severe systemic disease that limits activity (angina , COPD, prior Myocardial infarction) ASA 4: a patient with an incapacitating disease that is a constant threat to life (CHF, renal failure) ASA 5: a moribund patient not expected to survive 24 hrs. (ruptured aneurysm) ASA 6: a declared brain patient whose organs are being harvested. For emergent operations, add the letter E after the classification Grade 2 Sedation Plan: Analgesia, Amnesia, Plan communicated to team members, Discussed options with patient/fam, Discussed risks with patient/fam Note The patient is an appropriate candidate to undergo the planned procedure, sedation, and anesthesia. The patient immediately re-assessed prior to indication. MAGGIE WATKINS MD FACP FAC CCDS Aug 20, 2017 11:22
--- NOTE | 2017-08-20 11:45 | Progress Note-Hospitalist ---
Subjective HPI/CC On Admission Date Seen by Provider: Aug 20, 2017 Time Seen by Provider: 11:00 CC: Chest pain HPI: This is a 76-year-old white female clinic patient of Lesli Fuchs, internal medicine in [facility], with past medical history of right-sided breast cancer managed by Dr. 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 She did have a cardiac catheterization in the past about [address] Jackson without stent placement but did show moderate disease without obstruction. She reports that she has not had any more chest pain since admission and her myocardial enzymes have been negative she did undergo a cardiac stress test and those results are pending at this current time. She reports that she is agreeable for discharge with close follow-up with her primary care provider as long as the heart test is normal. She has been under a lot of stress since her this year and her granddaughter has had an adrenal mass managed at the [facility] and she is been going through a lot of worry and anxious about that. Subjective/Events-last exam Getting ready to have cardiac catheterization due to abnormal stress test Cardiac catheterization last done in 2012 that showed moderate disease but no occlusive disease No chest pain at this current time Was telling me about the mesh that she has that broke up and has eroded in her body and was concerned about that during this procedure Family at the bedside Review of Systems General: Fatigue Objective Exam Vital Signs Vital Signs Date Time Temp Pulse Resp B/P (MAP) Pulse Ox O2 Delivery O2 Flow Rate FiO2 08/20/17 08:07 98.9 84 20 140/64 (89) 99 Room Air Capillary Refill : Less Than 3 SecondsLess Than 3 Seconds General Appearance: No Apparent Distress, WD/WN HEENT: PERRL/EOMI, TMs Normal, Normal ENT Inspection, Pharynx Normal, Moist Mucous Membranes Neck: Full Range of Motion, Normal Inspection, Non Tender, Supple, Carotid Bruit Respiratory: Chest Non Tender, Lungs Clear, Normal Breath Sounds, No Accessory Muscle Use, No Respiratory Distress Cardiovascular: Regular Rate, Rhythm, No Edema, No Gallop, No JVD, No Murmur, Normal Peripheral Pulses Gastrointestinal: Normal Bowel Sounds, No Organomegaly, No Pulsatile Mass, Non Tender, Soft Back: Normal Inspection, No CVA Tenderness, No Vertebral Tenderness Extremity: Normal Capillary Refill, Normal Inspection, Normal Range of Motion, Non Tender, No Calf Tenderness, No Pedal Edema Neurologic/Psychiatric: Alert, Oriented x3, No Motor/Sensory Deficits, Normal Mood/Affect Skin: Normal Color, Warm/Dry Lymphatic: No Adenopathy Results/Procedures Lab Laboratory Tests 08/20/17 06:20 Patient resulted labs reviewed. Assessment/Plan Assessment and Plan Assess & Plan/Chief Complaint Assessment: Chest pain with abnormal stress test with moderate disease on cardiac catheterization in 2012 Plan: Cardiac cath today Home meds Diagnosis/Problems Diagnosis/Problems (1) Abnormal stress test Status: Acute (2) Chest pain Status: Acute Qualifiers: Chest pain type: unspecified Qualified Codes: R07.9 - Chest pain, unspecified (3) Elevated brain natriuretic peptide (BNP) level Status: Acute (4) Hypothyroidism Status: Chronic Qualifiers: Hypothyroidism type: acquired Qualified Codes: E03.9 - Hypothyroidism, unspecified (5) Hypertension Status: Chronic Qualifiers: Hypertension type: essential hypertension Qualified Codes: I10 - Essential (primary) hypertension (6) History of right breast cancer Status: Chronic (7) Esophageal stricture Status: Chronic (8) Hyperlipidemia Status: Chronic Assessment & Plan: Refuses statins Qualifiers: Hyperlipidemia type: mixed hyperlipidemia Qualified Codes: E78.2 - Mixed hyperlipidemia (9) Elevated AST (SGOT) Status: Resolved Assessment & Plan: Mild elevation, f/u PCP (10) Diabetes mellitus type 2, diet-controlled Status: Chronic (11) CAD (coronary artery disease) Status: Chronic Assessment & Plan: Noted moderate disease 2012 no intervention Qualifiers: Coronary Disease-Associated Artery/Lesion type: [place] artery [place] vs. transplanted heart: [place] heart Associated angina: without angina Qualified Codes: I25.10 - Atherosclerotic heart disease of [place] coronary artery without angina pectoris Clinical Quality Measures AMI/AHF: ASA po Prior to arrival: Yes DVT/VTE Risk/Contraindication: Risk Factor Score Per Nursin RFS Level Per Nursing on Admit: 4+=Very High EMMANUEL VENTURA DO Aug 20, 2017 11:45
[2017-08-20] MEDS ORDERED: HEParin 1000 UNIT/ML (10ML VIAL) FOR BOLUS ONE (11:48)
[2017-08-20] MEDS ORDERED: EPTIFIBATIDE BOLUS 20 ML IV ONE (11:48)
[2017-08-20] MEDS ORDERED: NITRO DRIP 25000 MCG/D5W 250 ML IV ONE (11:52)
[2017-08-20] MEDS ORDERED: ATROPINE INJECTION 1 MG/10 ML SYR (ABBOTT) ONE (12:10)
[2017-08-20] MEDS ORDERED: CLOPIDOGREL 300 MG (PLAVIX) TABLET PO ONE (12:24)
[2017-08-20] MEDS ORDERED: ASPIRIN 81 MG CHEW (CHILDREN'S ASA) ONE (12:24)
--- NOTE | 2017-08-20 12:27 | Progress Note-Cardiology ---
Cardiology SOAP Progress Note Subjective: No cp or palp or syncope or shortness of breath since admission Objective: I&O/Vital Signs 08/22/17 00:00 Intake Total 540 ml Output Total 600 ml Balance -60 ml Weight (Pounds): 154 Weight (Ounces): 0.0 Weight (Calculated Kilograms): 69.141848 Constitutional: AAO x 3, well-developed, well-nourished Respiratory: No accessory muscle use, No respiratory distress; chest expansion is symmetric, lungs clear to auscultation Cardiovascular: regular rate-rhythm; No JVD, No S1 and S2 Gastrointestional: No tender; soft, round, audible bowel sounds Extremities: no lower extremity edema bilateral Neurologic/Psychiatric: grossly intact, power is 5/5 both on sides Skin: No ulcerations Results/Procedures: Labs Laboratory Tests 08/22/17 11:30: Lab Scanned Report Transfusion Reaction Form A/P: Assessment: CAD. MPI of 08/19/17 showed mod inferior ischemia with normal LVEF. Card cath of 08/20/17 showed 80% ostial and proximal RCA that was stented with Alp Xience 3.5x18 stent; mid RCA has 40-50% stenosis (unchanged compared to a cath of ); mild plaques in the L cor system, LVEDP approx 18 mmHg Echo of 08/19/17: LVEF 55-60%, mild MR & TR, PASP 30-35 mmHg Mild anemia - Dr Davis managing managing Mild liver enzyme elevation of undetermined etiology - Dr Davis managing Gastroesophageal reflux . History of esophageal stricture dilation by Dr. Lopez in 2000. H/o right sided gum tumor, followed by pcp History of right sided breast carcinoma which was treated with radical mastectomy, chemotherapy and radiation therapy in 1997. Maturity onset diabetes mellitus. Hypothyroidism being treated with thyroid replacement therapy. History of chest wall tumor removed in 1998. History of cholecystectomy. History of right total knee replacement several years ago. History of hypertension. History of maturity onset diabetes mellitus. Hyperlipidemia, however she is intolerant to statin therapy and does not wish to be on medication Anxiety disorder Plan: This note is superseded by my other note of the same date Clinical Quality Measures AMI/AHF: ASA po Prior to arrival: Yes MAGGIE WATKINS MD FACP FAC CCDS Aug 20, 2017 12:27
--- NOTE | 2017-08-20 13:00 | Progress Note-Cardiology ---
Cardiology SOAP Progress Note Subjective: No cp or palp or syncope or shortness of breath since admission Objective: I&O/Vital Signs 08/20/17 08/20/17 08/20/17 08/20/17 01:00 04:19 08:00 08:07 Temp 98.2 98.9 Pulse 86 86 84 Resp 18 20 B/P (MAP) 138/65 (89) 140/64 (89) Pulse Ox 98 99 O2 Delivery Room Air Room Air Room Air 08/20/17 00:00 Intake Total 1640 ml Output Total 1930 ml Balance -290 ml Weight (Pounds): 154 Weight (Ounces): 0.0 Weight (Calculated Kilograms): 69.960023 Constitutional: AAO x 3, well-developed, well-nourished Respiratory: No accessory muscle use, No respiratory distress; chest expansion is symmetric, lungs clear to auscultation Cardiovascular: regular rate-rhythm; No JVD, No S1 and S2 Gastrointestional: No tender; soft, round, audible bowel sounds Extremities: no lower extremity edema bilateral Neurologic/Psychiatric: grossly intact, power is 5/5 both on sides Skin: No ulcerations Results/Procedures: Labs Laboratory Tests 08/20/17 06:20: White Blood Count 7.3, Red Blood Count 3.71L, Hemoglobin 11.4L, Hematocrit 34L, Mean Corpuscular Volume 92, Mean Corpuscular Hemoglobin 31, Mean Corpuscular Hemoglobin Concent 33, Red Cell Distribution Width 14.0, Platelet Count 234, Mean Platelet Volume 10.0, Prothrombin Time 13.4, INR Comment 1.0, Activated Partial Thromboplast Time 21L, Sodium Level 140, Potassium Level 4.4, Chloride Level 108H, Carbon Dioxide Level 23, Anion Gap 9, Blood Urea Nitrogen 23H, Creatinine 1.02, Estimat Glomerular Filtration Rate 53, BUN/Creatinine Ratio 23 , Glucose Level 97, Calcium Level 9.3 Laboratory Tests 08/18/17 14:18 08/19/17 05:20 08/20/17 06:20 A/P: Assessment: CAD. MPI of 08/19/17 shows mod inferior ischemia with normal LVEF. Card cath of showed 80% prox and ostial RCA stenosis that was successfully stented with Alp Xience 3.5x15 mm stent; mid RCA 40-50% (unchanged compared to a study of 08/15/12), mild L cor plaques, LVEDP approx 20 mmHg Cardiac catheterization from 08/15/2012 showed moderate coronary artery disease involving the midright coronary artery and consisting of approximately 50% midvessel stenosis of the right coronary. The left anterior descending artery has diffuse mild plaque. Normal global left ventricular systolic function with an ejection fraction of approximately 55%. Mildly elevated left ventricular end -diastolic pressure. No significant mitral regurgitation Echo of 08/19/13 showe LVEF 55-60%, mild MR & TR, PASP 30-35 mmHg Mild anemia - Dr Davis managing Mild liver enzyme elevation of undetermined etiology - Dr Davis managing Gastroesophageal reflux . History of esophageal stricture dilation by Dr. Lopez in 2000. 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 Maturity onset diabetes mellitus. Hypothyroidism being treated with thyroid replacement therapy. History of chest wall tumor removed in 1998. History of cholecystectomy. History of right total knee replacement several years ago. History of hypertension. History of maturity onset diabetes mellitus. Hyperlipidemia, however she is intolerant to statin therapy and does not wish to be on medication Anxiety disorder Plan: We recommend continuing therapy with aspirin, clopidogrel, beta-hunter and statin. She refuses statin Monitor labs Clinical Quality Measures AMI/AHF: ASA po Prior to arrival: Yes MAGGIE WATKINS MD FACP FAC CCDS Aug 20, 2017 13:00
[2017-08-20] MEDS ORDERED: PATIENT MAY USE OWN MEDS, ALL PO SCH (13:15)
[2017-08-20 14:18] LABS: BASOPHILS % (AUTO) 0 % (0-10); EOSINOPHILS # (AUTO) 0.2 10^3/uL (0.0-0.3); EOSINOPHILS % (AUTO) 3 % (0-10); HEMATOCRIT 29 % (35-52); HEMOGLOBIN 9.7 G/DL (11.5-16.0); LYMPHOCYTES % (AUTO) 28 % (12-44); MEAN CORPUSCULAR HEMOGLOBIN 31 PG (25-34); MEAN CORPUSCULAR HGB CONC 33 G/DL (32-36); MEAN CORPUSCULAR VOLUME 94 FL (80-99); MEAN PLATELET VOLUME 9.4 FL (7.4-10.4); MONOCYTES # (AUTO) 0.8 X 10^3 (0.0-1.0); MONOCYTES % (AUTO) 11 % (0-12); NEUTROPHILS % (AUTO) 57 % (42-75); PLATELET COUNT 237 10^3/uL (130-400); RED BLOOD COUNT 3.12 10^6/uL (4.35-5.85); WHITE BLOOD COUNT 7.1 10^3/uL (4.3-11.0)
[2017-08-20 14:34] LABS: BUN/CREATININE RATIO 20; CALCIUM 8.4 MG/DL (8.5-10.1); CARBON DIOXIDE 23 MMOL/L (21-32); CHLORIDE 107 MMOL/L (98-107); GFR ESTIMATED > 60; GLUCOSE 121 MG/DL (70-105); POTASSIUM 4.2 MMOL/L (3.6-5.0); SODIUM 137 MMOL/L (135-145)
[2017-08-20] MEDS: meTOproloL SUCCINATE 50 MG (TOPROL XL) TAB PO SCH (14:37)
[2017-08-20] MEDS ORDERED: NS IV 500 ML 500 ML ONE (14:52)
[2017-08-20] MEDS ORDERED: NS IV 500 ML 500 ML IV ONE (15:00)
[2017-08-20] MEDS: ALPRAZolam 0.5 MG (XANAX) TAB PO PRN (21:09)
[2017-08-21] VITALS: BP 111/58
[2017-08-21 04:00] VITALS: BP 115/57
[2017-08-21] MEDS: LEVOTHYROXINE 88 MCG (LEVOTHORID) TAB PO SCH (06:05)
[2017-08-21 06:10] LABS: HEMOGLOBIN 10.4 G/DL (11.5-16.0); MEAN PLATELET VOLUME 10.2 FL (7.4-10.4); RED BLOOD COUNT 3.33 10^6/uL (4.35-5.85); RED CELL DISTRIBUTION WIDTH 14.4 % (10.0-14.5); WHITE BLOOD COUNT 8.8 10^3/uL (4.3-11.0)
[2017-08-21 06:31] LABS: CALCIUM 8.7 MG/DL (8.5-10.1); CREATININE SERUM 1.06 MG/DL (0.60-1.30); POTASSIUM 4.6 MMOL/L (3.6-5.0)
[2017-08-21 08:00] VITALS: BP 132/61
[2017-08-21] MEDS: ASPIRIN 81 MG CHEW (CHILDREN'S ASA) PO SCH (08:32)
[2017-08-21] MEDS: meTOproloL SUCCINATE 50 MG (TOPROL XL) TAB PO SCH (08:32)
[2017-08-21] MEDS: VITAMIN D3 5,000 UNITS (CHOLECALCIFEROL ) CAPSULE PO SCH (08:32)
[2017-08-21] MEDS: CYANOCOBALAMIN 1,000 MCG (VITAMIN B-12) TABLET PO SCH (08:32)
[2017-08-21] MEDS: CLOPIDOGREL 75 MG (PLAVIX) TABLET PO SCH (08:32)
[2017-08-21] MEDS ORDERED: CLOP75TA69 PO (08:42)
--- NOTE | 2017-08-21 09:16 | Progress Note-Cardiology ---
Cardiology SOAP Progress Note Subjective: No cp or palp or syncope. Mild to mod R groin discomfort. Able to ambulate w/o difficulty. No distal leg swelling Objective: I&O/Vital Signs 08/21/17 08/21/17 08/21/17 08/21/17 00:00 01:00 04:00 07:00 Temp 98.3 98.0 Pulse 85 85 79 78 Resp 20 20 B/P (MAP) 111/58 (75) 115/57 (76) Pulse Ox 98 99 O2 Delivery Room Air Room Air 08/21/17 08/21/17 07:55 08:00 Temp 97.5 Pulse 86 Resp 22 B/P (MAP) 132/61 (84) Pulse Ox 99 O2 Delivery Room Air Room Air 08/21/17 00:00 Intake Total 1700 ml Output Total 500 ml Balance 1200 ml Weight (Pounds): 154 Weight (Ounces): 0.0 Weight (Calculated Kilograms): 69.721019 Condition: DP/PT pulses palpable Swelling: moderate amount of swelling Bruising: large amount of bruising Constitutional: AAO x 3, well-developed, well-nourished Respiratory: No accessory muscle use, No respiratory distress; chest expansion is symmetric, lungs clear to auscultation Cardiovascular: regular rate-rhythm; No JVD, No S1 and S2 Gastrointestional: No tender; soft, round, audible bowel sounds Extremities: no lower extremity edema bilateral Neurologic/Psychiatric: grossly intact, power is 5/5 both on sides Skin: No ulcerations Results/Procedures: Labs Laboratory Tests 08/20/17 14:10: White Blood Count 7.1, Red Blood Count 3.12L, Hemoglobin 9.7L, Hematocrit 29L, Mean Corpuscular Volume 94, Mean Corpuscular Hemoglobin 31, Mean Corpuscular Hemoglobin Concent 33, Red Cell Distribution Width 14.0, Platelet Count 237, Mean Platelet Volume 9.4, Neutrophils (%) (Auto) 57, Lymphocytes (%) (Auto) 28, Monocytes (%) (Auto) 11, Eosinophils (%) (Auto) 3, Basophils (%) (Auto) 0, Neutrophils # (Auto) 4.0, Lymphocytes # (Auto) 2.0, Monocytes # (Auto) 0.8, Eosinophils # (Auto) 0.2, Basophils # (Auto) 0.0, Sodium Level 137, Potassium Level 4.2, Chloride Level 107, Carbon Dioxide Level 23, Anion Gap 7, Blood Urea Nitrogen 18, Creatinine 0.90, Estimat Glomerular Filtration Rate > 60, BUN/ Creatinine Ratio 20, Glucose Level 121H, Calcium Level 8.4L 08/21/17 05:17: White Blood Count 8.8, Red Blood Count 3.33L, Hemoglobin 10.4L, Hematocrit 31L, Mean Corpuscular Volume 93, Mean Corpuscular Hemoglobin 31, Mean Corpuscular Hemoglobin Concent 34, Red Cell Distribution Width 14.4, Platelet Count 219, Mean Platelet Volume 10.2, Sodium Level 139, Potassium Level 4.6, Chloride Level 111H, Carbon Dioxide Level 21, Anion Gap 7, Blood Urea Nitrogen 23H, Creatinine 1.06, Estimat Glomerular Filtration Rate 51, BUN/Creatinine Ratio 22 , Glucose Level 91, Calcium Level 8.7 Laboratory Tests 08/20/17 06:20 08/20/17 14:10 08/21/17 05:17 A/P: Assessment: CAD. MPI of 08/19/17 shows mod inferior ischemia with normal LVEF. Card cath of showed 80% prox and ostial RCA stenosis that was successfully stented with Alp Xience 3.5x15 mm stent; mid RCA 40-50% (unchanged compared to a study of 08/15/12), mild L cor plaques, LVEDP approx 20 mmHg Large groin hematoma on the R after card cath of 08/20/17 with anemia requiring one unit of PRBC. Currently clinically stable Echo of 08/19/13 showed LVEF 55-60%, mild MR & TR, PASP 30-35 mmHg Mild anemia - Dr Davis managing Mild liver enzyme elevation of undetermined etiology - Dr Davis managing Gastroesophageal reflux . History of esophageal stricture dilation by Dr. Lopez in 2000. 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 Maturity onset diabetes mellitus. Hypothyroidism being treated with thyroid replacement therapy. History of chest wall tumor removed in 1998. History of cholecystectomy. History of right total knee replacement several years ago. History of hypertension. History of maturity onset diabetes mellitus. Hyperlipidemia, however she is intolerant to statin therapy and does not wish to be on medication Anxiety disorder Plan: We recommend continuing therapy with aspirin, clopidogrel, beta-hunter and statin. She refuses statin We discussed in detail the findings and interventions of 08/20/17 Oupt f/u is advised Advised return to ER in case of any symptoms Clinical Quality Measures AMI/AHF: ASA po Prior to arrival: Yes MAGGIE WATKINS MD FACP FACC CCDS Aug 21, 2017 09:16
[2017-08-21 12:00] VITALS: BP 116/61
--- NOTE | 2017-08-21 12:01 | Discharge Summary-Hospitalist ---
Diagnosis/Chief Complaint Date of Admission Aug 18, 2017 at 15:37 Date of Discharge Discharge Date: Aug 21, 2017 Admission Diagnosis Chest pain Elevated BNP h/o breast cancer right managed by Dr Mendoza HTN Hypothyroidism Discharge Diagnosis (1) Chest pain Status: Resolved (2) S/P coronary artery stent placement Status: Acute Assessment & Plan: Placement of stents 08/20/17 (3) CAD (coronary artery disease) Status: Acute Assessment & Plan: Noted moderate disease 2013 no intervention but then had stents placed 08/20/[address] Jackson for obstructive disease (4) Abnormal stress test Status: Acute (5) Elevated brain natriuretic peptide (BNP) level Status: Acute (6) Hypothyroidism Status: Chronic (7) Hypertension Status: Chronic (8) History of right breast cancer Status: Chronic (9) Esophageal stricture Status: Chronic (10) Hyperlipidemia Status: Chronic Assessment & Plan: Refuses statins (11) Elevated AST (SGOT) Status: Resolved Assessment & Plan: Mild elevation, f/u PCP (12) Diabetes mellitus type 2, diet-controlled Status: Chronic (13) Anemia Status: Acute (14) Transfusion of blood during current hospitalisation Status: Acute Assessment & Plan: Give 1 unit of blood yesterday due to blood loss from anticoagulation given during cath (15) Dizziness Status: Acute Assessment & Plan: Stressed importance of limiting exertion until fully recovered from stent placement Discharge Summary Discharge Physical Exam Allergies: Coded Allergies: Sulfa (Sulfonamide Antibiotics) (Unverified Allergy, Unknown, 08/15/12) erythromycin base (Unverified Allergy, Unknown, 09/02/16) Uncoded Allergies: CORTISOL (Adverse Reaction, Unknown, 08/18/17) PT STATES CAUSES PSYCHOSIS Vitals & I&Os Vital Signs Date Time Temp Pulse Resp B/P (MAP) Pulse Ox O2 Delivery O2 Flow Rate FiO2 08/21/17 12:00 98.7 96 20 116/61 (79) 96 Room Air General Appearance: Alert, Oriented X3, Cooperative HEENT: Atraumatic, PERRLA Respiratory: Clear to Auscultation, Normal Air Movement Cardiovascular: Regular Rate, Normal S1, Normal S2 Neuro: Normal Gait, Normal Speech, Strength at 5/5 X4 Ext Psych/Mental Status: Mental Status NL, Mood NL Hospital Course Hospital course: Patient had an uneventful hospital course she was admitted placed in observation for chest pain after cardiac enzymes returned within normal limits she underwent a stress test revealing abnormality so she underwent a cardiac catheterization by Dr. Jackson on 08/19/17 which revealed obstructive coronary artery disease and stents were placed the patient did have acute blood loss receiving 1 unit of packed red blood cell transfusion during the hospital stay. Hemoglobin remained stable at 10.4 at discharge. She had no further chest pain. Plavix will be maintained along with aspirin but she declines statin therapy. Overall patient is doing well did become dizzy when she walked around the morning of discharge and I did stress to her the need to limit exertional activities while she is recovering from stent placement and anemia and she understood the plan. Labs (last 24 hrs) Laboratory Tests 08/20/17 14:10: White Blood Count 7.1, Red Blood Count 3.12L, Hemoglobin 9.7L, Hematocrit 29L, Mean Corpuscular Volume 94, Mean Corpuscular Hemoglobin 31, Mean Corpuscular Hemoglobin Concent 33, Red Cell Distribution Width 14.0, Platelet Count 237, Mean Platelet Volume 9.4, Neutrophils (%) (Auto) 57, Lymphocytes (%) (Auto) 28, Monocytes (%) (Auto) 11, Eosinophils (%) (Auto) 3, Basophils (%) (Auto) 0, Neutrophils # (Auto) 4.0, Lymphocytes # (Auto) 2.0, Monocytes # (Auto) 0.8, Eosinophils # (Auto) 0.2, Basophils # (Auto) 0.0, Sodium Level 137, Potassium Level 4.2, Chloride Level 107, Carbon Dioxide Level 23, Anion Gap 7, Blood Urea Nitrogen 18, Creatinine 0.90, Estimat Glomerular Filtration Rate > 60, BUN/ Creatinine Ratio 20, Glucose Level 121H, Calcium Level 8.4L 08/21/17 05:17: White Blood Count 8.8, Red Blood Count 3.33L, Hemoglobin 10.4L, Hematocrit 31L, Mean Corpuscular Volume 93, Mean Corpuscular Hemoglobin 31, Mean Corpuscular Hemoglobin Concent 34, Red Cell Distribution Width 14.4, Platelet Count 219, Mean Platelet Volume 10.2, Sodium Level 139, Potassium Level 4.6, Chloride Level 111H, Carbon Dioxide Level 21, Anion Gap 7, Blood Urea Nitrogen 23H, Creatinine 1.06, Estimat Glomerular Filtration Rate 51, BUN/Creatinine Ratio 22 , Glucose Level 91, Calcium Level 8.7 Patient resulted labs reviewed. Pending Labs Laboratory Tests 08/21/17 05:17: White Blood Count 8.8, Red Blood Count 3.33, Hemoglobin 10.4, Hematocrit 31, Mean Corpuscular Volume 93, Mean Corpuscular Hemoglobin 31, Mean Corpuscular Hemoglobin Concent 34, Red Cell Distribution Width 14.4, Platelet Count 219, Mean Platelet Volume 10.2, Sodium Level 139, Potassium Level 4.6, Chloride Level 111, Carbon Dioxide Level 21, Anion Gap 7, Blood Urea Nitrogen 23, Creatinine 1.06, Estimat Glomerular Filtration Rate 51, BUN/Creatinine Ratio 22 , Glucose Level 91, Calcium Level 8.7 Discussion & Recommendations Discharge Planning: <30 minutes discharge planning Discharge Home Medications: Active Scripts Active Plavix (Clopidogrel Bisulfate) 75 Mg Tablet 75 Mg PO DAILY Reported Vitamin B-12 (Cyanocobalamin (Vitamin B-12)) 1,000 Mcg Tablet 1,000 Mcg PO DAILY Vitamin D3 (Cholecalciferol (Vitamin D3)) 5,000 Unit Capsule 5,000 Unit PO DAILY Tramadol HCl 50 Mg Tablet 50 Mg PO DAILY Aspirin EC (Aspirin) 325 Mg Tablet.dr 325 Mg PO DAILY Meloxicam 15 Mg Tablet 15 Mg PO DAILY Pindolol 10 Mg Tablet 5 Mg PO DAILY TAKES 1/2 (10MG) TABLET Levothyroxine Sodium 88 Mcg Tablet 88 Mcg PO DAILY Instructions to patient/family Please see electronic discharge instructions given to patient. Clinical Quality Measures AMI/AHF: ASA po Prior to arrival: Yes DVT/VTE Risk/Contraindication: Risk Factor Score Per Nursin RFS Level Per Nursing on Admit: 4+=Very High Problem Qualifiers (1) Chest pain: Chest pain type: chest pain due to myocardial ischemia Ischemic chest pain type: unstable angina pectoris Qualified Codes: I20.0 - Unstable angina (2) CAD (coronary artery disease): Coronary Disease-Associated Artery/Lesion type: [place] artery [place] vs. transplanted heart: [place] heart Associated angina: without angina Qualified Codes: I25.10 - Atherosclerotic heart disease of [place] coronary artery without angina pectoris (3) Hypothyroidism: Hypothyroidism type: acquired Qualified Codes: E03.9 - Hypothyroidism, unspecified (4) Hypertension: Hypertension type: essential hypertension Qualified Codes: I10 - Essential ( primary) hypertension (5) Hyperlipidemia: Hyperlipidemia type: mixed hyperlipidemia Qualified Codes: E78.2 - Mixed hyperlipidemia (6) Anemia: Anemia type: other cause Other causes of anemia: acute posthemorrhagic Qualified Codes: D62 - Acute posthemorrhagic anemia EMMANUEL VENTURA DO Aug 21, 2017 12:01
--- NOTE | 2017-08-22 06:52 | CARDIAC CATHETERIZATION ---
DATE OF SERVICE: 08/20/2017 CARDIAC CATHETERIZATION AND CORONARY INTERVENTION REPORT The patient is a 76-year-old lady, who was hospitalized with chest discomfort. Myocardial perfusion imaging showed inferior ischemia, moderate. Given symptoms and abnormal stress test, cardiac catheterization with possible ad hoc coronary intervention was recommended and informed consent obtained for these procedures. DESCRIPTION OF PROCEDURE: She was brought to the cardiac catheterization laboratory in a fasting state. Right groin was prepared and draped in usual sterile fashion. Lidocaine 1% local anesthesia. Modified Seldinger technique was used to advance a 6-Tong[place] sheath in the right femoral artery, a 5-[place]ong[place] JL4 catheter for left coronary angiography and 5-[place]ong[place] JR4 catheter for right coronary angiography. A 5-Tongan pigtail catheter was used for left heart catheterization. Due to significant ventricular ectopy with the introduction of the pigtail catheter in the ventricle, we chose not to carry out left ventricular angiography. Her left ventricular ejection fraction is known to be normal, based on myocardial perfusion imaging and echocardiography carried out during this hospitalization. PERCUTANEOUS INTERVENTION TO THE RIGHT CORONARY ARTERY: Following completion of the diagnostic procedure, we exchanged the sheath over a wire for a 7-Tongan sheath. We carried out intervention to an ostial and proximal lesion in the right coronary artery (approximately 80%). We used a 7-[place]ong[place] JR4 guide catheter with a short tip and side holes. We advanced a BMW wire across the lesion and the tip was placed in the distal vessel. We advanced Alpine Xience 3.5 x 18 mm stent to the lesion. It was carefully positioned to cover the entire lesion without projecting the stent edges into the aorta. The stent was deployed at 12 atmospheres. Subsequent angiography revealed no significant residual stenosis and flow throughout the vessel was normal. The mid vessel lesion in the right coronary artery was 40 to 50% and is chronic and unchanged compared to study of 2013. This was not intervened on. HEMODYNAMICS: Left ventricular end-diastolic pressure was difficult to determine because of marked ectopy, which could only be relieved with pulling the pigtail catheter out of the left ventricle. The left ventricular end diastolic pressure is roughly estimated to be 20 mmHg. There did not appear to be significant pressure gradient pullback across the aortic valve. Ascending aortic pressure was 149/78 with a mean of 94 mmHg. CORONARY ANGIOGRAPHY: Left main coronary artery, left anterior descending artery and left circumflex artery have mild plaques. Coronary calcification is seen in all coronary vessels. Right coronary artery size is dominant and had 80% ostial and proximal stenosis and 40 to 50% mid vessel stenosis. The ostial and proximal lesion in the right coronary artery does not exhibit any significant residual stenosis following deployment of Alpine Xience 3.5 x 18 mm stent. CONCLUSIONS: 1. Coronary artery disease is primarily consisting of 80% ostial and proximal stenosis of the right coronary artery to which successful stenting was carried out with Alpine Xience 3.5 x 18 mm stent with reduction of stenosis to no significant residual. The mid right coronary artery has 40 to 50% stenosis. The left coronary artery system has diffuse mild plaques. 2. Elevated left ventricular end-diastolic pressure, approximately 20 mmHg. DISCUSSION AND RECOMMENDATIONS: Risk factor modification has been reviewed with her. She refuses statin therapy. Aspirin and Plavix have been added and are being continued. Beta-blockers have been added and are being continued. Job ID: [id number] DocumentID: [id number] Dictated Date: 08/20/2017 12:41:49 Plan Coordinator Date: 08/20/2017 17:01:42 Dictated By: MAGGIE WATKINS MD, MA, FACP, FACC,
== END 2017-08-21 14:30 | disposition home or self-care (01) ==
LOC: EDUNIT# 13:52 → ER 13:57 → 4TH 15:37 → UNDOADMOB 15:37 → CATH 16:00 → 4TH 16:00 → UNDOADMOB 16:00 → CATH 08-21 14:30 → UNDODISOB 08-21 14:30
PROVIDERS: ATTEND Internal Medicine
DX: I25.10 Atherosclerotic heart disease of native coronary artery without angina pectoris (principal); I97.630 Postprocedural hematoma of a circulatory system organ or structure following a cardiac catheterization; D62 Acute posthemorrhagic anemia; I08.2 Rheumatic disorders of both aortic and tricuspid valves; I10 Essential (primary) hypertension; E11.9 Type 2 diabetes mellitus without complications; E03.9 Hypothyroidism, unspecified; F41.9 Anxiety disorder, unspecified; K21.9 Gastro-esophageal reflux disease without esophagitis; R42 Dizziness and giddiness; R74.8 Abnormal levels of other serum enzymes; R79.89 Other specified abnormal findings of blood chemistry; Z85.3 Personal history of malignant neoplasm of breast; Z79.82 Long term (current) use of aspirin; Z90.11 Acquired absence of right breast and nipple
CPT/HCPCS: 36415; 71045; 78452; 80048; 80053; 80061; 83735; 83874; 83880; 84484; 85025; 85027; 85379; 85610; 85730; 86850; 86900; 86901; 86920; 93005; 93017; 93041; 93306; 93458; G0378

== ENCOUNTER → 2017-09-08 | Outpatient (CLI) | payer MEDICARE ==
[~2017-09-08] MED LIST changes: +ASPI325T32 PO; +CHOL5000 PO; +CLOP75TA69 PO; +CYAN10006 PO; +LEVO88TA54 PO; +MELO15TA39 PO; +PIND10TA PO
--- NOTE | 2017-09-08 15:34 | Diagnostic Imaging Report ---
INDICATION: Status post heart catheterization on August 24. Study is performed to evaluate for hematoma or pseudoaneurysm. FINDINGS: Sonographic interrogation of the right groin was performed. There is a hematoma in the upper right thigh measuring 7.5 x 2.4 x 6.0 cm. No internal blood flow is seen to suggest pseudoaneurysm. The right common femoral artery and vein as well as superficial femoral artery are patent. No AV fistula seen. IMPRESSION: Right groin and upper thigh hematoma. No pseudoaneurysm or AV fistula is identified. Dictated by: Dictated on workstation # [id number]
== END ==
LOC: RAD 14:27
PROVIDERS: ATTEND Nurse Practitioner Family
DX: T14.8XXA Other injury of unspecified body region, initial encounter (principal); Z95.828 Presence of other vascular implants and grafts
CPT/HCPCS: 93926

== ENCOUNTER 2017-10-10 11:49 | Day surgery (SDC) | payer MEDICARE ==
[~2017-10-10] VITALS: Ht 167.6 cm; Wt 69.6 kg
[2017-10-10] MEDS ORDERED: NITROGLYCERIN 0.4 MG SL TABS BTL 25'S SL ONE (11:53)
[2017-10-10] MEDS ORDERED: ASPIRIN 81 MG CHEW (CHILDREN'S ASA) ONE (11:53)
--- OUTSIDE RECORDS SUMMARY | 2017-10-10 11:54 | XMS REPORT | Clinical Summary ---
Author Author [facility] Organization [facility] Address Unknown Phone Unavailable Care Team Providers Care Entry Level Mechanical Engineer Name Role Phone Doctor, Miscellaneous Unavailable [...] in the Health Information Management department at [phone] for further assistance in locating additional records.[facility] Allergies Active Allergy Reactions Severity Noted [...] vaginal mesh to surrounding organ or tissue ([facility]) 04/17 Last Assessment & Plan: prior mesh [...] the vaginal opening) Mentioned surgical repairs involving crow tissue repairs (using patient tissues and sutures) [...] Taken Blood Pressure 122/73 01/15/2016 1:02 PM PATTERN CARRIER Pulse 80 01/15/2016 1:02 PM PATTERN CARRIER Temperature 36.4 C (97.6 F) 01/15/2016 1:02 PM PATTERN CARRIER Respiratory Rate 16 01/15/2016 1:02 PM PATTERN CARRIER Oxygen Saturation 95% 01/30/2015 3:06 PM PATTERN CARRIER Inhaled Oxygen - - Concentration Weight 71.6 kg (157 lb 12.8 oz) 01/15/2016 1:02 PM PATTERN CARRIER Height 163.8 cm (5' 4.49") 01/15/2016 1:02 PM PATTERN CARRIER Body Mass Index 26.68 01/15/2016 1:02 PM PATTERN CARRIER Plan of Treatment Health Maintenance Due Date [...]
--- OUTSIDE RECORDS SUMMARY | 2017-10-10 11:56 | XMS REPORT | Continuity of Care Document ---
Author Author [facility] Organization [facility] Address Unknown Phone Unavailable Allergies Active Description Code Type Severity Reaction Onset Reported/Identified Relationship to Patient Clinical Status Yes Sulfa (Sulfonamide Antibiotics) [id number] Drug Allergy Unknown N/A 2012 Yes erythromycin base [id number] Drug Allergy Unknown N/A 09/02/2016 Yes CORTISOL CORTISOL Unknown N/A 08/18/2017 Medications There is no data. Problems Date Dx Coded Attending Type Code Diagnosis Diagnosed By MARIELLA JESUS Ot E03.9 HYPOTHYROIDISM, UNSPECIFIED MARIELLA JESUS Ot I89.0 LYMPHEDEMA, NOT ELSEWHERE CLASSIFIED MARIELLA JESUS Ot K21.9 GASTRO-ESOPHAGEAL REFLUX DISEASE WITHOUT MARIELLA JESUS Ot R91.8 OTHER NONSPECIFIC ABNORMAL FINDING OF FÉLIX MARIELLA JESUS Ot Z08 ENCNTR FOR FOLLOW-UP EXAM AFTER TRTMT FO MARIELLA JESUS Ot Z79.899 OTHER LONG-TERM (CURRENT) DRUG THERAPY MARIELLA JESUS Ot Z85.3 [...] V12.72 PERSONAL HISTORY OF COLONIC POLYPS 06/15/2012 ORENDER DO, GATO S Ot 244.9 HYPOTHYROIDISM NOS 06/15/2012 ORENDER DO, [...] FACP CCDS Ot 414.01 CORONARY ATHEROSCLEROSIS OF [place] CORON 08/15/2012 MAGGIE WATKINS MD, FACC FACP CCDS Ot 530.81 ESOPHAGEAL REFLUX 08/15/2012 MAGGIE WATKINS MD, FACC FACP CCDS Ot 786.09 RESPIRATORY ABNORM NEC 08/15/2012 MAGGIE WATKINS MD, FACCP CCDS Ot V10.3 HX OF BREAST MALIGNANCY 08/15/2012 MAGGIE WATKINS MD, FACCP CCDS Ot V15.3 HX OF IRRADIATION 08/15/2012 MAGGIE WATKINS MD, FACC FACP CCDS Ot V17.49 FAMILY HISTORY OF OTHER CARDIOVASCULAR D 08/15/2012 MAGGIE WATKINS MD, FACC FACP CCDS Ot V58.66 LONG-TERM (CURRENT) USE OF ASPIRIN 08/15/2012 MAGGIE WATKINS MD, FACCP CCDS Ot V58.69 OTH MED,LT,CURRENT USE 08/15/2012 ROLAND MD FACC, ALI FACP CCDS Ot V87.41 PERSONAL HISTORY OF [...] HX-VENOUS THROMBOSIS EMBOLISM 07/26/2014 FRANKLIN CAICEDO, BARB Ewing Ot 722.4 08/08/2014 FRANKLIN CAICEDO, BARB Ewing Ot 722.4 08/15/2014 FRANKLIN CAICEDO, BARB Ewing Ot 722.4 01/28/2015 GARRETT CAICEDO, JEFFERSON Mercado [...] OR UNSPEC TY 05/25/2016 ROLAND CAICEDO FACC, ALI FACP CCDS Ot 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 05/25/2016 ROLAND CAICEDO FACC, MAGGIE FACP CCDS Ot 397.0 TRICUSPID VALVE DISEASE 05/25/2016 ROLAND CAICEDO FACC, MAGGIE FACP CCDS Ot 786.09 RESPIRATORY ABNORM NEC 05/25/2016 ROLAND CAICEDO FACCMAGGIE FACP CCDS Ot V72.81 [id number] CARDIOVASCULAR 05/25/2016 ORENDER DO, GATO S Ot 486 PNEUMONIA, ORGANISM NOS 05/25/2016 CHRISTIANONDER DO, GATO S Ot 786.05 SHORTNESS OF BREATH 05/25/2016 CHRISTIANONDER DO, GATO S Ot V10.3 HX OF BREAST MALIGNANCY 05/25/2016 ORENDER DO, GATO S Ot 786.2 COUGH 05/25/2016 ORENDER DO, GATO S Ot 789.00 ABDOMINAL PAIN, UNSPECIFIED SITE 05/25/2016 ORENDER DO, GATO S Ot V10.3 HX OF BREAST MALIGNANCY 05/25/2016 CHRISTIANONDER DO, GATO S Ot 573.8 LIVER DISORDERS NEC 05/25/2016 FRANKLIN CAICEDO, BARB R Ot 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 DISC DEGEN 06/30/2016 MARIELLA JESUS N Ot E03.9 HYPOTHYROIDISM, UNSPECIFIED 06/30/2016 MARIELLA JESUS N Ot I89.0 LYMPHEDEMA, NOT ELSEWHERE CLASSIFIED 06/30/2016 MARIELLA JESUS N Ot K21.9 GASTRO-ESOPHAGEAL REFLUX DISEASE WITHOUT 06/30/2016 ANN MARIE, BOBAN N Ot R91.8 OTHER NONSPECIFIC ABNORMAL FINDING OF FÉLIX 06/30/2016 MARIELLA JESSU N Ot Z08 ENCNTR FOR FOLLOW-UP EXAM AFTER TRTMT FO 06/30/2016 MARIELLA JESUS N Ot Z79.899 OTHER LONG-TERM (CURRENT) DRUG THERAPY 06/30/2016 MARIELLA JESUS N Ot Z85.3 PERSONAL HISTORY OF MALIGNANT NEOPLASM O 06/30/2016 MARIELLA JESUS N Ot Z90.11 ACQUIRED ABSENCE OF RIGHT BREAST AND NIP 07/07/2016 MARIELLA JESUS N Ot E03.9 HYPOTHYROIDISM, UNSPECIFIED 07/07/2016 ANN MARIEASHLYN JOHNSAN N Ot I89.0 LYMPHEDEMA, NOT ELSEWHERE CLASSIFIED 07/07/2016 MARIELLA JESUS N Ot K21.9 GASTRO-ESOPHAGEAL REFLUX DISEASE WITHOUT 07/07/2016 ANN MARIE BOBAN N Ot R91.8 OTHER NONSPECIFIC ABNORMAL FINDING OF FÉLIX 07/07/2016 MARIELLA JESUS N Ot Z08 ENCNTR FOR FOLLOW-UP EXAM AFTER TRTMT FO 07/07/2016 MARIELLA JESUS N Ot Z79.899 OTHER FIBERGLASS TUBE MOLDER (CURRENT) DRUG THERAPY 07/07/2016 ANN MARIEMARIELLA JOHNS N Ot Z85.3 PERSONAL HISTORY OF MALIGNANT NEOPLASM O 07/07/2016 ANN MARIEMARIELLA JOHNS N Ot Z90.11 ACQUIRED ABSENCE OF RIGHT BREAST AND NIP 07/30/2016 ANN MARIE BOBDOUG N Ot I89.0 LYMPHEDEMA, NOT ELSEWHERE CLASSIFIED 07/30/2016 ANN MARIEMARIELLA JOHNS N Ot R91.8 OTHER NONSPECIFIC ABNORMAL FINDING OF FÉLIX 07/30/2016 ANN MARIEMARIELLA JOHNS N Ot Z85.3 PERSONAL HISTORY OF MALIGNANT NEOPLASM O 08/23/2016 ANN MARIE BOBAN N Ot E03.9 HYPOTHYROIDISM, UNSPECIFIED 08/23/2016 ANN MARIE BOBAN N Ot I89.0 LYMPHEDEMA, NOT ELSEWHERE CLASSIFIED 08/23/2016 ANN MARIE BOBDOUG N Ot K21.9 GASTRO-ESOPHAGEAL REFLUX DISEASE WITHOUT 08/23/2016 ANN MARIE, BOBAN N Ot R91.8 OTHER NONSPECIFIC ABNORMAL FINDING OF FÉLIX 08/23/2016 MARIELLA JESUS N Ot Z08 ENCNTR FOR FOLLOW-UP EXAM AFTER TRTMT FO 08/23/2016 MARIELLA JESUS N Ot Z79.899 OTHER FIBERGLASS TUBE MOLDER (CURRENT) DRUG THERAPY 08/23/2016 ANN MARIEMARIELLA N Ot Z85.3 PERSONAL HISTORY OF MALIGNANT NEOPLASM O 08/23/2016 ANN MARIE, BOBDOUG N Ot Z90.11 ACQUIRED ABSENCE OF RIGHT BREAST AND NIP 08/23/2016 ANN MARIE BOBDOUG N Ot I89.0 LYMPHEDEMA, NOT ELSEWHERE CLASSIFIED 08/23/2016 ANN MARIE BOBDOUG N Ot R91.8 OTHER NONSPECIFIC ABNORMAL FINDING OF FÉLIX 08/23/2016 ANN MARIEMARIELLA JOHNS N Ot Z85.3 PERSONAL HISTORY OF MALIGNANT NEOPLASM O 09/02/2016 ANN MARIE BOBAN N Ot E03.9 HYPOTHYROIDISM, UNSPECIFIED 09/02/2016 ANN MARIE BOBAN N Ot I89.0 LYMPHEDEMA, NOT ELSEWHERE CLASSIFIED 09/02/2016 ANN MARIE BOBAN N Ot K21.9 GASTRO-ESOPHAGEAL REFLUX DISEASE WITHOUT 09/02/2016 ANN MARIE, BOBAN N Ot R91.8 OTHER NONSPECIFIC ABNORMAL FINDING OF FÉLIX 09/02/2016 ANN MARIE BOBDOUG N Ot Z08 ENCNTR FOR FOLLOW-UP EXAM AFTER TRTMT FO 09/02/2016 MARIELLA JESUS N Ot Z79.899 OTHER LONG-TERM (CURRENT) DRUG THERAPY 09/02/2016 MARIELLA JESUS [place] Ot Z85.3 PERSONAL HISTORY OF MALIGNANT NEOPLASM O 09/02/2016 MARIELLA JESUS Ot Z90.11 ACQUIRED ABSENCE OF [...] BAILEY DO S Ot 786.2 COUGH 10/15/2016 MAGGIE WATKINS MD, FACC, FACP CCDS Ot 250.00 DIAB PARESH WO COMPL, TYPE II OR UNSPEC TY 10/15/2016 MAGGIE WATKINS MD, FACC FAC CCDS Ot 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, MAGGIE [facility] CCDS Ot 786.09 RESPIRATORY ABNORM NEC 10/15/[address] [facility], [facility]IE [facility] CCDS Ot V72.81 [id number] CARDIOVASCULAR 10/15/2016 RICCARDO BAILEY DOLINE S Ot 486 PNEUMONIA, ORGANISM NOS 10/15/2016 ORENDER DO, GATO S Ot 786.05 SHORTNESS OF BREATH 10/15/2016 ORENDER DO, GATO S Ot V10.3 HX OF BREAST MALIGNANCY 10/15/2016 CHRISTIANONDER DO GATO S Ot 786.2 COUGH 10/15/2016 CHRISTIANONDER DO GATO S Ot 789.00 ABDOMINAL PAIN, UNSPECIFIED SITE 10/15/2016 CHRISTIANONDVIANNEY BRYANT DOQUELINE S Ot V10.3 HX OF BREAST MALIGNANCY 10/15/2016 RICCARDO BAILEY DOLINE S Ot 573.8 LIVER DISORDERS NEC 10/15/2016 [...] FO 10/15/2016 MARIELLA JESUS Ot Z79.899 OTHER FIBERGLASS TUBE MOLDER (CURRENT) DRUG THERAPY 10/15/2016 MARIELLA JESUS Ot Z85.3 PERSONAL HISTORY OF MALIGNANT NEOPLASM O 10/15/2016 MARIELLA JESUS Ot Z90.11 ACQUIRED ABSENCE OF RIGHT BREAST AND NIP 10/15/2016 VERONIQUE ALEXANDRE MD Ot G89.29 OTHER CHRONIC PAIN 10/15/2016 VERONIQUE ALEXANDRE MD Ot R68.89 OTHER GENERAL SYMPTOMS AND SIGNS 10/15/2016 WOOD MD, VERONIQUE Ot Z85.3 PERSONAL HISTORY OF MALIGNANT NEOPLASM O 10/18/2016 RICCARDO BAILEY DOLINE S Ot 786.05 SHORTNESS OF BREATH 10/18/2016 VIANNEY BAILEY DOQUELINE S Ot 786.2 COUGH 10/18/[address] 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 10/18/2016 ROLAND MARRERO, ALI FACP CCDS Ot 397.0 TRICUSPID VALVE DISEASE 10/18/2016 ROLAND CAICEDO FACC, ALI FACP CCDS Ot 786.09 RESPIRATORY ABNORM NEC 10/18/2016 ROLAND CAICEDO FACC, ALI FACP CCDS Ot V72.81 [id number] CARDIOVASCULAR 10/18/2016 VIANNEY BAILEY DOQUELINE S Ot 486 PNEUMONIA, ORGANISM NOS 10/18/2016 VIANNEY BAILEY DOQUELINE S Ot 786.05 SHORTNESS OF BREATH 10/18/2016 VIANNEY BAILEY DOQUELINE S Ot V10.3 HX OF BREAST MALIGNANCY 10/18/2016 VIANNEY BAILEY DOQUELINE S Ot 786.2 COUGH 10/18/2016 VIANNEY BAILEY DOQUELINE S Ot 789.00 ABDOMINAL PAIN, UNSPECIFIED SITE 10/18/2016 VIANNEY BAILEY DOQUELINE S Ot V10.3 HX OF BREAST MALIGNANCY 10/18/2016 VIANNEY BAILEY DOQUELINE S Ot 573.8 LIVER DISORDERS NEC 10/18/2016 FRANKLIN CAICEDO, BARB Ewing Ot 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 DISC DEGEN 10/18/2016 MARIELLA JESUS Ot E03.9 HYPOTHYROIDISM, UNSPECIFIED 10/18/2016 MARIELLA JESUS Ot I89.0 LYMPHEDEMA, NOT ELSEWHERE CLASSIFIED 10/18/2016 MARIELLA JESUS Ot K21.9 GASTRO-ESOPHAGEAL REFLUX DISEASE WITHOUT 10/18/2016 MARIELLA JESUS Ot R91.8 OTHER NONSPECIFIC ABNORMAL FINDING OF FÉLIX 10/18/2016 MARIELLA JESUS Ot Z08 ENCNTR FOR FOLLOW-UP EXAM AFTER TRTMT FO 10/18/2016 MARIELLA JESUS Ot Z79.899 OTHER FIBERGLASS TUBE MOLDER (CURRENT) DRUG THERAPY 10/18/2016 MARIELLA JESUS Ot Z85.3 PERSONAL HISTORY OF MALIGNANT NEOPLASM O 10/18/2016 MARIELLA JESUS [place] Ot Z90.11 ACQUIRED ABSENCE OF RIGHT BREAST AND NIP 10/18/2016 VERONIQUE ALEXANDRE MD Ot G89.29 OTHER CHRONIC PAIN 10/18/2016 VERONIQUE ALEXANDRE MD Ot R68.89 OTHER GENERAL SYMPTOMS AND SIGNS 10/18/2016 VERONIQUE ALEXANDRE MD Ot Z85.3 PERSONAL HISTORY OF MALIGNANT NEOPLASM O 11/01/2016 MARIELLA JESUS [place] Ot E03.9 HYPOTHYROIDISM, UNSPECIFIED 11/01/2016 MARIELLA JESUS Ot I89.0 LYMPHEDEMA, NOT ELSEWHERE CLASSIFIED 11/01/2016 MARIELLA JESUS N Ot K21.9 GASTRO-ESOPHAGEAL REFLUX DISEASE WITHOUT 11/01/2016 MARIELLA JESUS [place] Ot R91.8 OTHER NONSPECIFIC ABNORMAL FINDING OF FÉLIX 11/01/2016 MARIELLA JESUS [place] Ot Z08 ENCNTR FOR FOLLOW-UP EXAM AFTER TRTMT FO 11/01/2016 MARIELLA JESUS [place] Ot Z79.899 OTHER FIBERGLASS TUBE MOLDER (CURRENT) DRUG THERAPY 11/01/2016 MARIELLA JESUS Ot Z85.3 PERSONAL HISTORY OF MALIGNANT NEOPLASM O 11/01/2016 MARIELLA JESUS N Ot Z90.11 ACQUIRED ABSENCE OF RIGHT BREAST AND NIP 04/26/2017 LUCASANDREY Desai S TUBE MOLDER FIBERGLASS Ot E03.9 HYPOTHYROIDISM, UNSPECIFIED 04/26/2017 LUCASANDREY Desai S TUBE MOLDER FIBERGLASS Ot K21.9 GASTRO-ESOPHAGEAL REFLUX DISEASE WITHOUT 04/26/2017 LUCASANDREY Desai S TUBE MOLDER FIBERGLASS Ot Z08 ENCNTR FOR FOLLOW-UP EXAM AFTER TRTMT FO 04/26/2017 ANDREY LUCAS S TUBE MOLDER FIBERGLASS Ot Z79.899 OTHER LONG-TERM (CURRENT) DRUG THERAPY 04/26/2017 BRUNA LUCASAH S TUBE MOLDER FIBERGLASS Ot Z85.3 PERSONAL HISTORY OF MALIGNANT NEOPLASM O 04/26/2017 ANDREY LUCAS S TUBE MOLDER FIBERGLASS Ot Z90.11 ACQUIRED ABSENCE OF RIGHT BREAST AND NIP 05/01/2017 ANDREY LUCAS S TUBE MOLDER FIBERGLASS Ot E03.9 HYPOTHYROIDISM, UNSPECIFIED 05/01/2017 ANDREY LUCAS S TUBE MOLDER FIBERGLASS Ot K21.9 GASTRO-ESOPHAGEAL REFLUX DISEASE WITHOUT 05/01/2017 LUCASANDREY S TUBE MOLDER FIBERGLASS Ot Z08 ENCNTR FOR FOLLOW-UP EXAM AFTER TRTMT FO 05/01/2017 ANDREY LUCAS TUBE MOLDER FIBERGLASS Ot Z79.899 OTHER LONG-TERM (CURRENT) DRUG THERAPY 05/01/2017 ANDREY LUCAS TUBE MOLDER FIBERGLASS Ot Z85.3 PERSONAL HISTORY OF MALIGNANT NEOPLASM O 05/01/2017 ANDREY LUCAS TUBE MOLDER FIBERGLASS Ot Z90.11 ACQUIRED ABSENCE OF RIGHT BREAST AND NIP 05/26/2017 ANDREY LUCAS TUBE MOLDER FIBERGLASS Ot E03.9 HYPOTHYROIDISM, UNSPECIFIED 05/26/2017 ANDREY LUCAS TUBE MOLDER FIBERGLASS Ot K21.9 GASTRO-ESOPHAGEAL REFLUX DISEASE WITHOUT 05/26/2017 ANDREY LUCAS TUBE MOLDER FIBERGLASS Ot Z08 ENCNTR FOR FOLLOW-UP EXAM AFTER TRTMT FO 05/26/2017 ANDREY LUCASP Ot Z79.899 OTHER LONG-TERM (CURRENT) DRUG THERAPY 05/26/2017 ANDREY LUCASP Ot Z85.3 PERSONAL HISTORY OF MALIGNANT NEOPLASM O 05/26/2017 ANDREY LUCASP Ot Z90.11 ACQUIRED ABSENCE OF RIGHT BREAST [...] GENITAL SYMPTOMS NOS 06/01/2017 GATO BAILEY DO Ot 786.05 SHORTNESS OF BREATH 06/01/2017 GATO BAILEY DO Ot 786.2 COUGH 06/01/2017 ROLAND CAICEDO FACC, MAGGIE FACP CCDS Ot 250.00 DIAB PARESH WO COMPL, TYPE II OR UNSPEC TY 06/01/2017 ROLAND CAICEDO FACC, MAGGIE FACP CCDS Ot 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 06/01/2017 ROLAND CAICEDO FACC, MAGGIE FACP CCDS Ot 397.0 TRICUSPID VALVE DISEASE 06/01/2017 ROLAND CAICEDO FACC, MAGGIE MARREROP CCDS Ot 786.09 RESPIRATORY ABNORM NEC 06/01/2017 ROLAND CAICEDO FACC, MAGGIE MARREROP CCDS Ot V72.81 [id number] CARDIOVASCULAR 06/01/2017 RYLANDANNETTE RICCARDO NAYLORLINE S Ot 486 PNEUMONIA, ORGANISM NOS 06/01/2017 CHRISTIANONDER DO GATO S Ot 786.05 SHORTNESS OF BREATH 06/01/2017 CHRISTIANONDER GATO S Ot V10.3 HX OF BREAST MALIGNANCY 06/01/2017 CHRISTIANONDER DO, GATO S Ot 786.2 COUGH 06/01/2017 CHRISTIANONDER , GATO S Ot 789.00 ABDOMINAL PAIN, UNSPECIFIED SITE 06/01/2017 CHRISTIANONDER GATO S Ot V10.3 HX OF BREAST MALIGNANCY 06/01/2017 CHRISTIANONDER , GATO S Ot 573.8 LIVER DISORDERS NEC 06/01/2017 FRANKLIN CAICEDO, BARB Ewing Ot 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 DISC DEGEN 06/01/2017 ANDREY LUCAS TUBE MOLDER FIBERGLASS Ot E03.9 HYPOTHYROIDISM, UNSPECIFIED 06/01/2017 ANDREY LUCAS TUBE MOLDER FIBERGLASS Ot K21.9 GASTRO-ESOPHAGEAL REFLUX DISEASE WITHOUT 06/01/2017 ANDREY LUCAS TUBE MOLDER FIBERGLASS Ot Z08 ENCNTR FOR FOLLOW-UP EXAM AFTER TRTMT FO 06/01/2017 ANDREY LUCAS TUBE MOLDER FIBERGLASS Ot Z79.899 OTHER FIBERGLASS TUBE MOLDER (CURRENT) DRUG THERAPY 06/01/2017 ANDREY LUCAS TUBE MOLDER FIBERGLASS Ot Z85.3 PERSONAL HISTORY OF MALIGNANT NEOPLASM O 06/01/2017 ANDREY LUCAS TUBE MOLDER FIBERGLASS Ot Z90.11 ACQUIRED ABSENCE OF RIGHT BREAST AND NIP 06/01/2017 VIANNEY BAILEY DOQUELINE S Ot 786.05 SHORTNESS OF BREATH 06/01/2017 VIANNEY BAILEY DOQUELINE S Ot 786.2 COUGH 06/01/2017 ROLAND CAICEDO FACC, MAGGIE FACP CCDS Ot 250.00 DIAB PARESH WO COMPL, TYPE II OR UNSPEC TY 06/01/2017 ROLAND CAICEDO FACC, MAGGIE FACP CCDS Ot 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, MAGGIE MARRERO CCDS Ot 786.09 RESPIRATORY ABNORM NEC 06/01/2017 ROLAND CAICEDO FAC, MAGGIE [facility] CCDS Ot V72.81 [id number] CARDIOVASCULAR 06/01/2017 CHRISTIANONDER , GATO S Ot 486 PNEUMONIA, ORGANISM NOS 06/01/2017 ORENDER DO, GATO S Ot 786.05 SHORTNESS OF BREATH 06/01/2017 ORENDER DO, GATO S Ot V10.3 HX OF BREAST MALIGNANCY 06/01/2017 ORENDER DO, GATO S Ot 786.2 COUGH 06/01/2017 [...] OF MALIGNANT NEOPLASM O 06/01/2017 ANDREY LUCAS TUBE MOLDER FIBERGLASS Ot E03.9 HYPOTHYROIDISM, UNSPECIFIED 06/01/2017 ANDREY LUCASP Ot K21.9 GASTRO-ESOPHAGEAL REFLUX DISEASE WITHOUT 06/01/2017 ANDREY LUCAS TUBE MOLDER FIBERGLASS Ot Z08 ENCNTR FOR FOLLOW-UP EXAM AFTER TRTMT FO 06/01/2017 ANDREY LUCAS TUBE MOLDER FIBERGLASS Ot Z79.899 OTHER FIBERGLASS TUBE MOLDER (CURRENT) DRUG THERAPY 06/01/2017 ANDREY LUCAS TUBE MOLDER FIBERGLASS Ot Z85.3 PERSONAL HISTORY OF MALIGNANT NEOPLASM O 06/01/2017 ANDREY LUCASP Ot Z90.11 ACQUIRED ABSENCE OF RIGHT BREAST AND NIP 08/18/2017 CHRISTIANONDER DO, GATO S Ot 786.05 SHORTNESS OF BREATH 08/18/2017 CHRISTIANONDER DO, GATO S Ot 786.2 COUGH 08/18/[address] [facility], MAGGIE MARREROP CCDS Ot 250.00 DIAB PARESH WO COMPL, TYPE II OR UNSPEC TY 08/18/[address] 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, MAGGIE FACP CCDS Ot V72.81 [id number] CARDIOVASCULAR 08/18/2017 ORENDER DO GATO S Ot 486 PNEUMONIA, ORGANISM NOS 08/18/2017 ORENDER DO, GATO S Ot 786.05 SHORTNESS OF BREATH 08/18/2017 ORENDER DO, GATO S Ot V10.3 HX OF BREAST MALIGNANCY 08/18/2017 ORENDER DO, GATO S Ot 786.2 COUGH 08/18/2017 ORENDER DO, GATO S Ot 789.00 ABDOMINAL PAIN, UNSPECIFIED SITE 08/18/2017 CHRISTIANONDER DO GATO S Ot V10.3 HX OF BREAST MALIGNANCY 08/18/2017 CHRISTIANONDER DO GATO S Ot 573.8 LIVER DISORDERS NEC 08/18/2017 FRANKLIN CAICEDO, BARB Ewing Ot 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 DISC DEGEN 08/18/2017 VERONIQUE ALEXANDRE MD Ot G89.29 OTHER CHRONIC PAIN 08/18/2017 VERONIQUE ALEXANDRE MD Ot R68.89 OTHER GENERAL SYMPTOMS AND SIGNS 08/18/2017 VERONIQUE ALEXANDRE MD Ot Z85.3 PERSONAL HISTORY OF MALIGNANT NEOPLASM O 08/18/2017 ANDREY LUCASP Ot E03.9 HYPOTHYROIDISM, UNSPECIFIED 08/18/2017 ANDREY LUCASP Ot K21.9 GASTRO-ESOPHAGEAL REFLUX DISEASE WITHOUT 08/18/2017 ANDREY LUCASP Ot Z08 ENCNTR FOR FOLLOW-UP EXAM AFTER TRTMT FO 08/18/2017 ANDREY LUCAS Ot Z79.899 OTHER FIBERGLASS TUBE MOLDER (CURRENT) DRUG THERAPY 08/18/2017 ANDREY LUCAS TUBE MOLDER FIBERGLASS Ot Z85.3 PERSONAL HISTORY OF MALIGNANT NEOPLASM O 08/18/2017 ANDREY LUCASP Ot Z90.11 ACQUIRED ABSENCE OF RIGHT BREAST AND NIP 08/21/2017 LORENZO NAYLOR EMMANUEL Ot D62 ACUTE POSTHEMORRHAGIC ANEMIA 08/21/2017 ELIZ VENTURA DOI Ot E03.9 HYPOTHYROIDISM, UNSPECIFIED 08/21/2017 LORENZO NAYLOR EMMANUEL Ot E11.9 TYPE 2 DIABETES MELLITUS WITHOUT COMPLIC 08/21/2017 ELIZ VENTURA DOI Ot F41.9 ANXIETY DISORDER, UNSPECIFIED 08/21/2017 LORENZO NAYLOR EMMANUEL Ot 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 08/21/2017 LORENZO NAYLOR EMMANUEL Ot I10 ESSENTIAL (PRIMARY) HYPERTENSION 08/21/2017 LORENZO NAYLOR EMMANUEL Ot I25.10 ATHSCL HEART DISEASE OF [place] CORONARY 08/21/2017 LORENZO NAYLOR EMMANUEL Ot 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 08/21/2017 ELIZ VENTURA DOI Ot K21.9 GASTRO-ESOPHAGEAL REFLUX DISEASE WITHOUT 08/21/2017 ELIZ VENTURA DOI Ot R42 DIZZINESS AND GIDDINESS 08/21/2017 ELIZ VENTURA DOI Ot R74.8 ABNORMAL LEVELS OF OTHER SERUM ENZYMES 08/21/2017 ELIZ VENTURA DOI Ot R79.89 OTHER SPECIFIED ABNORMAL FINDINGS OF BLO 08/21/2017 ELIZ VENTURA DOI Ot Z79.82 LONG-TERM (CURRENT) USE OF ASPIRIN 08/21/2017 ELIZ VENTURA DOI Ot Z85.3 PERSONAL HISTORY OF MALIGNANT NEOPLASM O 08/21/2017 ELIZ VENTURA DOI Ot Z90.11 ACQUIRED ABSENCE OF RIGHT BREAST AND NIP 08/25/2017 ELIZ VENTURA DOI Ot D62 ACUTE POSTHEMORRHAGIC ANEMIA 08/25/2017 EMMANUEL VENTURA DO Ot E03.9 HYPOTHYROIDISM, UNSPECIFIED 08/25/2017 LORENZO NAYLOR EMMANUEL Ot E11.9 TYPE 2 DIABETES MELLITUS WITHOUT COMPLIC 08/25/2017 ELIZ VENTURA DOI Ot F41.9 ANXIETY DISORDER, UNSPECIFIED 08/25/2017 LORENZO NAYLOR EMMANUEL Ot 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 08/25/2017 LORENZO NAYLOR EMMANUEL Ot I10 ESSENTIAL (PRIMARY) HYPERTENSION 08/25/2017 LORENZO NAYLOR EMMANUEL Ot I25.10 ATHSCL HEART DISEASE OF [place] CORONARY 08/25/2017 LORENZO NAYLOR EMMANUEL Ot 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 08/25/2017 LORENZO NAYLOR EMMANUEL Ot K21.9 GASTRO-ESOPHAGEAL REFLUX DISEASE WITHOUT 08/25/2017 LORENZO NAYLOR EMMANUEL Ot R42 DIZZINESS AND GIDDINESS 08/25/2017 LORENZO NAYLOR EMMANUEL Ot R74.8 ABNORMAL LEVELS OF OTHER SERUM ENZYMES 08/25/2017 LORENZO NAYLOR EMMANUEL Ot R79.89 OTHER SPECIFIED ABNORMAL FINDINGS OF BLO 08/25/2017 LORENZO NAYLOR EMMANUEL Ot Z79.82 LONG-TERM (CURRENT) USE OF ASPIRIN 08/25/2017 LORENZO NAYLOR EMMANUEL Ot Z85.3 PERSONAL HISTORY OF MALIGNANT NEOPLASM O 08/25/2017 LORENZO NAYLOR EMMANUEL Ot Z90.11 ACQUIRED ABSENCE OF RIGHT BREAST AND NIP 08/25/2017 LORENZO DO EMMANUEL Ot D62 ACUTE POSTHEMORRHAGIC ANEMIA 08/25/2017 LORENZO NAYLOR EMMANUEL Ot E03.9 HYPOTHYROIDISM, UNSPECIFIED 08/25/2017 LORENZO NAYLOR EMMANUEL Ot E11.9 TYPE 2 DIABETES MELLITUS WITHOUT COMPLIC 08/25/2017 LORENZO NAYLOR EMMANUEL Ot F41.9 ANXIETY DISORDER, UNSPECIFIED 08/25/2017 LORENZO NAYLOR EMMANUEL Ot 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 08/25/2017 LORENZO NAYLOR EMMANUEL Ot I10 ESSENTIAL (PRIMARY) HYPERTENSION 08/25/2017 LORENZO NAYLOR EMMANUEL Ot I25.10 ATHSCL HEART DISEASE OF [place] CORONARY 08/25/2017 LORENZO NAYLOR EMMANUEL Ot 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 08/25/2017 ELIZ VENTURA DOI Ot K21.9 GASTRO-ESOPHAGEAL REFLUX DISEASE WITHOUT 08/25/2017 LORENZO NAYLOR EMMANUEL Ot R42 DIZZINESS AND GIDDINESS 08/25/2017 LORENZO NAYLOR EMMANUEL Ot R74.8 ABNORMAL LEVELS OF OTHER SERUM ENZYMES 08/25/2017 LORENZO NAYLOR EMMANUEL Ot R79.89 OTHER SPECIFIED ABNORMAL FINDINGS OF BLO 08/25/2017 LORENZO NAYLOR EMMANUEL Ot Z79.82 FIBERGLASS TUBE MOLDER (CURRENT) USE OF ASPIRIN 08/25/2017 LORENZO NAYLOR EMMANUEL Ot Z85.3 PERSONAL HISTORY OF MALIGNANT NEOPLASM O 08/25/2017 LORENZO NAYLOR EMMANUEL Ot Z90.11 ACQUIRED ABSENCE OF RIGHT BREAST AND NIP 08/26/2017 LORENZO NAYLOR EMMANUEL Ot D62 ACUTE POSTHEMORRHAGIC ANEMIA 08/26/2017 LORENZO NAYLOR EMMANUEL Ot E03.9 HYPOTHYROIDISM, UNSPECIFIED 08/26/2017 LORENZO NAYLOR EMMANUEL Ot E11.9 TYPE 2 DIABETES MELLITUS WITHOUT COMPLIC 08/26/2017 LORENZO NAYLOR EMMANUEL Ot F41.9 ANXIETY DISORDER, UNSPECIFIED 08/26/2017 LORENZO NAYLOR EMMANUEL Ot 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 08/26/2017 LORENZO NAYLOR EMMANUEL Ot I10 ESSENTIAL (PRIMARY) HYPERTENSION 08/26/2017 LORENZO NAYLOR EMMANUEL Ot I25.10 ATHSCL HEART DISEASE OF [place] CORONARY 08/26/2017 LORENZO NAYLOR EMMANUEL Ot 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 08/26/2017 LORENZO NAYLOR EMMANUEL Ot K21.9 GASTRO-ESOPHAGEAL REFLUX DISEASE WITHOUT 08/26/2017 LORENZO NAYLOR EMMANUEL Ot R42 DIZZINESS AND GIDDINESS 08/26/2017 LORENZO NAYLOR EMMANUEL Ot R74.8 ABNORMAL LEVELS OF OTHER SERUM ENZYMES 08/26/2017 ELIZ VENTURA DOI Ot R79.89 OTHER SPECIFIED ABNORMAL FINDINGS OF BLO 08/26/2017 ELIZ VENTURA DOI Ot Z79.82 LONG-TERM (CURRENT) USE OF ASPIRIN 08/26/2017 ELIZ VENTURA DOI Ot Z85.3 PERSONAL HISTORY OF MALIGNANT NEOPLASM O 08/26/2017 ELIZ VENTURA DOI Ot Z90.11 ACQUIRED ABSENCE OF RIGHT BREAST AND NIP 09/25/2017 LORENZO NAYLOR EMMANUEL Ot D62 ACUTE POSTHEMORRHAGIC ANEMIA 09/25/2017 ELIZ VENTURA DOI Ot E03.9 HYPOTHYROIDISM, UNSPECIFIED 09/25/2017 ELIZ VENTURA DOI Ot E11.9 TYPE 2 DIABETES MELLITUS WITHOUT COMPLIC 09/25/2017 LORENZO NAYLOR EMMANUEL Ot F41.9 ANXIETY DISORDER, UNSPECIFIED 09/25/2017 LORENZO NAYLOR EMMANUEL Ot 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 09/25/2017 LORENZO NAYLOR EMMANUEL Ot I10 ESSENTIAL (PRIMARY) HYPERTENSION 09/25/2017 LORENZO NAYLOR EMMANUEL Ot I25.10 ATHSCL HEART DISEASE OF [place] CORONARY 09/25/2017 LORENZO NAYLOR EMMANUEL Ot 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 09/25/2017 ELIZ VENTURA DOI Ot K21.9 GASTRO-ESOPHAGEAL REFLUX DISEASE WITHOUT 09/25/2017 EMMANUEL VENTURA DO Ot R42 DIZZINESS AND GIDDINESS 09/25/2017 EMMANUEL VENTURA DO Ot R74.8 ABNORMAL LEVELS OF OTHER SERUM ENZYMES 09/25/2017 EMMANUEL VENTURA DO Ot R79.89 OTHER SPECIFIED ABNORMAL FINDINGS OF BLO 09/25/2017 ELIZ VENTURA DOI Ot Z79.82 LONG-TERM (CURRENT) USE OF ASPIRIN 09/25/2017 EMMANUEL VENTURA DO Ot Z85.3 PERSONAL HISTORY OF MALIGNANT NEOPLASM O 09/25/2017 EMMANUEL VENTURA DO Ot Z90.11 ACQUIRED ABSENCE OF RIGHT BREAST [...] 08/18/17 14:18 Myoglobin, serum 243.2 ng/mL 10.0-92.0 Serum or plasma troponin i.cardiac measurement (mass/volume) - 08/18/17 21:00 Serum or plasma troponin i.cardiac measurement (mass/volume) < ng/ mL <0.30 Serum or plasma troponin i.cardiac measurement (mass/volume) - 08/19/17 01:55 Serum or plasma troponin i.cardiac measurement (mass/volume) < ng/ mL <0.30 Lipid 1996 panel - 08/19/17 05:20 Serum or plasma triglyceride measurement (mass/volume) 58 mg/dL <150 Serum or plasma cholesterol measurement (mass/volume) 182 mg/dL < 200 Serum or plasma cholesterol in HDL measurement (mass/volume) 61 mg/ dL 40-60 Cholesterol in LDL [mass/volume] in serum or plasma by direct assay 111 mg/dL 1-129 Serum or plasma cholesterol in VLDL measurement (mass/volume) 12 mg/ dL 5-40 Automated blood complete blood count (hemogram) panel - 08/19/17 05:20 Blood leukocytes automated count (number/volume) 6.8 10*3/uL 4.3-11.0 Blood erythrocytes automated count (number/volume) 3.65 10*6/uL 4.35-5.85 Venous blood hemoglobin measurement (mass/volume) 11.0 g/dL 11.5-16.0 Blood hematocrit (volume fraction) 34 % 35-52 Automated erythrocyte mean corpuscular volume 92 [foz_us] 80-99 Automated erythrocyte mean corpuscular hemoglobin (mass per erythrocyte) 30 pg 25-34 Automated erythrocyte mean corpuscular hemoglobin concentration measurement ( mass/volume) 33 g/dL 32-36 Automated erythrocyte distribution width ratio 14.2 % 10.0-14.5 Automated blood platelet count (count/volume) 258 10*3/uL 130-400 Automated blood platelet mean volume measurement 10.6 [foz_us] 7.4-10.4 Comprehensive metabolic panel - 08/19/17 05:20 Serum or plasma sodium measurement (moles/volume) 140 mmol/L 135-145 Serum or plasma potassium measurement (moles/volume) 3.9 mmol/L 3.6-5.0 Serum or plasma chloride measurement (moles/volume) 109 mmol/L 98-107 Carbon dioxide 24 mmol/L 21-32 Serum or plasma anion gap determination (moles/volume) 7 mmol/L 5-14 Serum or plasma urea nitrogen measurement (mass/volume) 23 mg/dL 7-18 Serum or plasma creatinine measurement (mass/volume) 0.96 mg/dL 0.60-1.30 Serum or plasma urea nitrogen/creatinine mass ratio 24 NRG Serum or plasma creatinine measurement with calculation of estimated glomerular filtration rate 57 NRG Serum or plasma glucose measurement (mass/volume) 87 mg/dL 70-105 Serum or plasma calcium measurement (mass/volume) 9.7 mg/dL 8.5-10.1 Serum or plasma total bilirubin measurement (mass/volume) 0.7 mg/dL 0.1-1.0 Serum or plasma alkaline phosphatase measurement (enzymatic activity/volume) 50 U/L 40-136 Serum or plasma aspartate aminotransferase measurement (enzymatic activity/ volume) 30 U/L 5-34 Serum or plasma alanine aminotransferase measurement (enzymatic activity/volume ) 19 U/L 0-55 Serum or plasma protein measurement (mass/volume) 6.5 g/dL 6.4-8.2 Serum or plasma albumin measurement (mass/volume) 3.7 g/dL 3.2-4.5 Magnesium - 08/19/17 05:20 Magnesium 2.1 mg/dL 1.8-2.4 Automated blood complete blood count (hemogram) panel - 08/20/17 06:20 Blood leukocytes automated count (number/volume) 7.3 10*3/uL 4.3-11.0 Blood erythrocytes automated count (number/volume) 3.71 10*6/uL 4.35-5.85 Venous blood hemoglobin measurement (mass/volume) 11.4 g/dL 11.5-16.0 Blood hematocrit (volume fraction) 34 % 35-52 Automated erythrocyte mean corpuscular volume 92 [foz_us] 80-99 Automated erythrocyte mean corpuscular hemoglobin (mass per erythrocyte) 31 pg 25-34 Automated erythrocyte mean corpuscular hemoglobin concentration measurement ( mass/volume) 33 g/dL 32-36 Automated erythrocyte distribution width ratio 14.0 % 10.0-14.5 Automated blood platelet count (count/volume) 234 10*3/uL 130-400 Automated blood platelet mean volume measurement 10.0 [foz_us] 7.4-10.4 Whole blood basic metabolic panel - 08/20/17 06:20 Serum or plasma sodium measurement (moles/volume) 140 mmol/L 135-145 Serum or plasma potassium measurement (moles/volume) 4.4 mmol/L 3.6-5.0 Serum or plasma chloride measurement (moles/volume) 108 mmol/L 98-107 Carbon dioxide 23 mmol/L 21-32 Serum or plasma anion gap determination (moles/volume) 9 mmol/L 5-14 Serum or plasma urea nitrogen measurement (mass/volume) 23 mg/dL 7-18 Serum or plasma creatinine measurement (mass/volume) 1.02 mg/dL 0.60-1.30 Serum or plasma urea nitrogen/creatinine mass ratio 23 NRG Serum or plasma creatinine measurement with calculation of estimated glomerular filtration rate 53 NRG Serum or plasma glucose measurement (mass/volume) 97 mg/dL 70-105 Serum or plasma calcium measurement (mass/volume) 9.3 mg/dL 8.5-10.1 PT panel in platelet poor plasma by coagulation assay - 08/20/17 06:20 Prothrombin time (PT) in platelet poor plasma by coagulation assay 13.4 s 12.2-14.7 INR in platelet poor plasma or blood by coagulation assay 1.0 0.8-1.4 Activated partial thromboplastin time (aPTT) in platelet poor plasma bycoagulation assay - 08/20/17 06:20 Activated partial thromboplastin time (aPTT) in platelet poor plasma bycoagulation assay 21 s 24-35 Complete blood count (CBC) with automated white blood cell (WBC) differential - 08/20/17 14:10 Blood leukocytes automated count (number/volume) 7.1 10*3/uL 4.3-11.0 Blood erythrocytes automated count (number/volume) 3.12 10*6/uL 4.35-5.85 Venous blood hemoglobin measurement (mass/volume) 9.7 g/dL 11.5-16.0 Blood hematocrit (volume fraction) 29 % 35-52 Automated erythrocyte mean corpuscular volume 94 [foz_us] 80-99 Automated erythrocyte mean corpuscular hemoglobin (mass per erythrocyte) 31 pg 25-34 Automated erythrocyte mean corpuscular hemoglobin concentration measurement ( mass/volume) 33 g/dL 32-36 Automated erythrocyte distribution width ratio 14.0 % 10.0-14.5 Automated blood platelet count (count/volume) 237 10*3/uL 130-400 Automated blood platelet mean volume measurement 9.4 [foz_us] 7.4-10.4 Automated blood neutrophils/100 leukocytes 57 % 42-75 Automated blood lymphocytes/100 leukocytes 28 % 12-44 Blood monocytes/100 leukocytes 11 % 0-12 Automated blood eosinophils/100 leukocytes 3 % 0-10 Automated blood basophils/100 leukocytes 0 % 0-10 Blood neutrophils automated count (number/volume) 4.0 10*3 1.8-7.8 Blood lymphocytes automated count (number/volume) 2.0 10*3 1.0-4.0 Blood monocytes automated count (number/volume) 0.8 10*3 0.0-1.0 Automated eosinophil count 0.2 10*3/uL 0.0-0.3 Automated blood basophil count (count/volume) 0.0 10*3/uL 0.0-0.1 Whole blood basic metabolic panel - 08/20/17 14:10 Serum or plasma sodium measurement (moles/volume) 137 mmol/L 135-145 Serum or plasma potassium measurement (moles/volume) 4.2 mmol/L 3.6-5.0 Serum or plasma chloride measurement (moles/volume) 107 mmol/L 98-107 Carbon dioxide 23 mmol/L 21-32 Serum or plasma anion gap determination (moles/volume) 7 mmol/L 5-14 Serum or plasma urea nitrogen measurement (mass/volume) 18 mg/dL 7-18 Serum or plasma creatinine measurement (mass/volume) 0.90 mg/dL 0.60-1.30 Serum or plasma urea nitrogen/creatinine mass ratio 20 NRG Serum or plasma creatinine measurement with calculation of estimated glomerular filtration rate > NRG Serum or plasma glucose measurement (mass/volume) 121 mg/dL 70-105 Serum or plasma calcium measurement (mass/volume) 8.4 mg/dL 8.5-10.1 RED CELLS LEUKO REDUCED AS1 - 08/20/17 14:10 RED CELLS LEUKO REDUCED AS1 TRANSFUSED 08/20/17 1454 NRG Blood type T Indirect antibody screen panel - 08/20/17 14:10 ABO+Rh group AP NRG Transfusion band number [id number] NRG Blood group antibody screen NEGATIVE NRG Automated blood complete blood count (hemogram) panel - 08/21/17 05:17 Blood leukocytes automated count (number/volume) 8.8 10*3/uL 4.3-11.0 Blood erythrocytes automated count (number/volume) 3.33 10*6/uL 4.35-5.85 Venous blood hemoglobin measurement (mass/volume) 10.4 g/dL 11.5-16.0 Blood hematocrit (volume fraction) 31 % 35-52 Automated erythrocyte mean corpuscular volume 93 [foz_us] 80-99 Automated erythrocyte mean corpuscular hemoglobin (mass per erythrocyte) 31 pg 25-34 Automated erythrocyte mean corpuscular hemoglobin concentration measurement ( mass/volume) 34 g/dL 32-36 Automated erythrocyte distribution width ratio 14.4 % 10.0-14.5 Automated blood platelet count (count/volume) 219 10*3/uL 130-400 Automated blood platelet mean volume measurement 10.2 [foz_us] 7.4-10.4 Whole blood basic metabolic panel - 08/21/17 05:17 Serum or plasma sodium measurement (moles/volume) 139 mmol/L 135-145 Serum or plasma potassium measurement (moles/volume) 4.6 mmol/L 3.6-5.0 Serum or plasma chloride measurement (moles/volume) 111 mmol/L 98-107 Carbon dioxide 21 mmol/L 21-32 Serum or plasma anion gap determination (moles/volume) 7 mmol/L 5-14 Serum or plasma urea nitrogen measurement (mass/volume) 23 mg/dL 7-18 Serum or plasma creatinine measurement (mass/volume) 1.06 mg/dL 0.60-1.30 Serum or plasma urea nitrogen/creatinine mass ratio 22 NRG Serum or plasma creatinine measurement with calculation of estimated glomerular filtration rate 51 NRG Serum or plasma glucose measurement (mass/volume) 91 mg/dL 70-105 Serum or plasma calcium measurement (mass/volume) 8.7 mg/dL 8.5-10.1 Encounters ACCT No. Visit Date/Time Discharge Status Pt. Type Provider Facility Loc./Unit Complaint [id number] 08/18/2017 16:00:00 08/21/2017 14:30:00 DIS Outpatient VENTURA EMMANUEL [facility] CATH CHEST PAIN ON EXERTION [id number] 04/25/2017 13:46:00 04/25/2017 23:59:59 CLS Outpatient ANDREY LUCAS [facility] ONC [id number] 10/25/2016 09:39:00 11/01/2016 08:36:00 DIS Outpatient MARIELLA JESUS [facility] ONC [id number] 10/18/2016 13:45:00 10/18/2016 23:59:59 CLS Preadmit MARIELLA JESUS [facility] RAD BREAST CANCER [id number] 09/02/2016 12:03:00 09/02/2016 23:59:59 CLS Outpatient VERONIQUE ALEXANDRE MD [facility] CARD CHRONIC PAIN R68.89 [id number] 07/29/2016 15:44:00 08/23/2016 14:40:00 DIS Outpatient MARIELLA JESUS [facility] REHAB LYMPHEDEMA OF ARM; BREAST CANCER [id number] 06/14/2016 09:46:00 08/23/2016 00:01:00 DIS Outpatient MARIELLA JESUS [facility] ONC [id number] 05/01/2015 14:50:00 05/01/2015 23:59:59 CLS Outpatient JUSTUS VINSON [facility] QUICK URINE CULTURE [id number] 03/08/2015 12:22:00 03/08/2015 23:59:59 CLS Outpatient HEIKE YORK APRN [facility] QUICK [id number] 01/28/2015 12:34:00 01/28/2015 15:56:00 DIS Emergency JEFFERSON TUCKER MD [facility] ER ABD PAIN FEVER [id number] 07/10/2014 16:04:00 07/10/2014 23:59:59 CLS Outpatient FRANKLIN CAICEDO, BARB Ewing [facility] RAD NECK PAIN [id number] 10/15/2013 08:09:00 10/15/2013 23:59:59 CLS Outpatient CHRISTIANONDANNETTE NAYLOR GATO S [facility] RAD LIVER CYST [id number] 10/05/2013 09:53:00 10/05/2013 23:59:59 CLS Outpatient CHRISTIANONDANNETTE NAYLOR GATO S [facility] RAD COUGH,ABD PAIN, HX OF BREAST CA [id number] 06/19/2013 14:27:00 06/19/2013 23:59:59 CLS Outpatient LEO NAYLOR GATO S [facility] RAD HX OF BREAST CA [id number] 09/04/2012 15:06:00 09/04/2012 17:49:00 DIS Emergency NINI HUGHES MD [facility] ER LEFT SIDE HEAD PAIN, REDUCED VISION [id number] 08/15/2012 07:14:00 08/15/2012 16:30:00 DIS Outpatient ROLAND CAICEDO FACC, MAGGIE KHOURY CCDS [facility] CATH SOB,FATIGUE [id number] 08/11/2012 07:42:00 08/11/2012 23:59:59 CLS Outpatient MAGGIE WATKINS MD, FACC, FACP CCDS [facility] CARD DYSPNEA, DIABETES [id number] 06/21/2012 15:59:00 06/21/2012 23:59:59 CLS Outpatient LEO NAYLOR GATO S [facility] RAD SOB,COUGH [id number] 06/10/2012 10:25:00 06/15/2012 11:15:00 DIS Inpatient LEO NAYLOR GATO S [facility] 4TH PNEUMONIA [id number] 06/01/2017 09:54:00 Document Registration [id number] 06/01/2017 09:54:00 Document Registration [id number] 05/25/2016 09:07:00 Document Registration [id number] 12/23/2010 13:50:00 Document Registration [id number] 12/09/2010 13:19:00 Document Registration [id number] 12/07/2010 11:19:00 Document Registration [id number] 11/19/2010 06:41:00 Document Registration [id number] 04/14/2010 10:14:00 Document Registration [id number] 05/10/2008 10:18:00 Document Registration [id number] 09/29/2007 10:09:00 Document Registration
[2017-10-10] MEDS ORDERED: NITROGLYCERIN 0.4 MG SL TABS BTL 25'S SL PRN (12:00)
[2017-10-10] MEDS ORDERED: ASPIRIN 81 MG CHEW (CHILDREN'S ASA) PO ONE (12:00)
--- NOTE | 2017-10-10 12:05 | ED Chest Pain ---
General Chief Complaint: Chest Pain Stated Complaint: CP Source: patient, family Exam Limitations: no limitations History of Present Illness Date Seen by Provider: Oct 10, 2017 Time Seen by Provider: 11:48 Initial Comments Patient presents to the ER by private conveyance with her family and chief complaint that just prior to arrival she began to experience some right-sided chest pain radiated up to her right shoulder and neck as well as towards her back. She says she has a history of heart attack and heart catheter this year by Dr. Jackson where she had a stent placed. She is on aspirin and Plavix. She's not having any nausea or shortness of breath or cough. No fevers or chills. She also has a history of pancreatitis. She's not having any indigestion or acid reflux. She has a history of high blood pressure but no diabetes. She is on levothyroxine status post thyroidectomy on a stable dose for many years. She did take 324 mg of aspirin this morning routinely and does not have nitroglycerin available. Allergies and Home Medications Allergies Coded Allergies: Sulfa (Sulfonamide Antibiotics) (Unverified Allergy, Unknown, 08/15/12) erythromycin base (Unverified Allergy, Unknown, 09/02/16) Uncoded Allergies: CORTISOL (Adverse Reaction, Unknown, 08/18/17) PT STATES CAUSES PSYCHOSIS Home Medications Aspirin 325 Mg Tablet.dr, 325 MG PO DAILY, (Reported) Cholecalciferol (Vitamin D3) 5,000 Unit Capsule, 5,000 UNIT PO DAILY, (Reported) Clopidogrel Bisulfate 75 Mg Tablet, 75 MG PO DAILY Prescribed by: JENNIFER BACK on 08/21/17 0842 Cyanocobalamin (Vitamin B-12) 1,000 Mcg Tablet, 1,000 MCG PO DAILY, (Reported) Levothyroxine Sodium 88 Mcg Tablet, 88 MCG PO DAILY, (Reported) Meloxicam 15 Mg Tablet, 15 MG PO DAILY, (Reported) Pindolol 10 Mg Tablet, 5 MG PO DAILY, (Reported) TAKES 1/2 (10MG) TABLET Tramadol HCl 50 Mg Tablet, 50 MG PO DAILY, (Reported) Patient Home Medication List Home Medication List Reviewed: Yes Review of Systems Review of Systems Constitutional: No chills, No diaphoresis EENTM: No Blurred Vision, No Double Vision Respiratory: Denies Cough, Denies Shortness of Air Cardiovascular: See HPI, Chest Pain, Edema (at night bilateral ankle); Denies Lightheadedness, Denies Palpitations, Denies Syncope Gastrointestinal: Denies Abdomen Distended, Denies Abdominal Pain, Denies Constipated, Denies Diarrhea, Denies Nausea Genitourinary: Denies Burning, Denies Discharge Musculoskeletal: No back pain, No joint pain Skin: No pruritus, No rash Psychiatric/Neurological: Denies Headache, Denies Numbness, Denies Paresthesia Past Nnxsxfi-Ysewqf-Wtgxir Hx Patient Social History Alcohol Use: Occasionally Uses Alcohol Beverage of Choice: Wine Recreational Drug Use: No Smoking Status: Never a Smoker 2nd Hand Smoke Exposure: Yes Recent Foreign Travel: No Contact w/Someone Who Travel: No Recent Hopitalizations: No Immunizations Up To Date Tetanus Booster (TDap): More than 5yrs Date of Pneumonia Vaccine: Nov 18, 2009 Seasonal Allergies Seasonal Allergies: Yes Past Medical History Surgeries: Yes (recent rectocele/cystocele repair w/ attempted mesh removal, right mastecto) Adenoidectomy, Breast, Gallbladder, Orthopedic, Thyroidectomy, Tonsillectomy Respiratory: Yes (r lung fibrosis, PNEUMOTHORAX, 11 spots on lungs) Pneumonia Currently Using CPAP: No Currently Using BIPAP: No Cardiac: Yes (mitral, aortic valve regurg, 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; weak left ventricle) Coronary Artery Disease Neurological: No Genitourinary: Yes UTI-Chronic Gastrointestinal: Yes (ulcerative colitis) Gastroesophageal Reflux, Irritable Bowel Musculoskeletal: Yes Arthritis Endocrine: Yes (Thyroidectomy) Hypothyroidsim HEENT: Yes (cataract repair) Cataract Loss of Vision: Denies Hearing Impairment: Denies Cancer: Yes (Right breast and lymph involvment) Breast What Type of Treatment Did You: Chemotherapy, Radiation, Surgical Intervention Psychosocial: No Anxiety Integumentary: Yes (moles) Blood Disorders: No Family Medical History Patient reports no known family medical history. No Pertinent Family Hx Physical Exam Vital Signs Vital Signs - First Documented 10/10/17 11:50 Temp 97.7 Pulse 67 Resp 14 B/P (MAP) 149/84 (105) Pulse Ox 98 O2 Delivery Room Air Capillary Refill : Height, Weight, BMI Height: 5'6.50" Weight: 154lbs. 0.0oz. 69.104592sv; 24.5 BMI Method:Stated General Appearance: WD/WN, Mild Distress HEENT: PERRL/EOMI, Pharynx Normal, Moist Mucous Membranes Neck: Full Range of Motion, Normal Inspection, Non Tender Respiratory: Chest Non Tender, Lungs Clear, Normal Breath Sounds, No Accessory Muscle Use, No Respiratory Distress Cardiovascular: Regular Rate, Rhythm, No Edema Gastrointestinal: Normal Bowel Sounds, Non Tender, Soft Neurologic/Psychiatric: Alert, Oriented x3 Skin: Normal Color, Warm/Dry Progress/Results/Core Measures Results/Orders Lab Results Laboratory Tests Test 10/10/17 12:00 Range/Units White Blood Count 5.6 4.3-11.0 10^3/uL Red Blood Count 3.74 L 4.35-5.85 10^6/uL Hemoglobin 11.8 11.5-16.0 G/DL Hematocrit 35 35-52 % Mean Corpuscular Volume 93 80-99 FL Mean Corpuscular Hemoglobin 32 25-34 PG Mean Corpuscular Hemoglobin Concent 34 32-36 G/DL Red Cell Distribution Width 13.8 10.0-14.5 % Platelet Count 253 130-400 10^3/uL Mean Platelet Volume 9.8 7.4-10.4 FL Neutrophils (%) (Auto) 55 42-75 % Lymphocytes (%) (Auto) 31 12-44 % Monocytes (%) (Auto) 11 0-12 % Eosinophils (%) (Auto) 2 0-10 % Basophils (%) (Auto) 1 0-10 % Neutrophils # (Auto) 3.1 1.8-7.8 X 10^3 Lymphocytes # (Auto) 1.7 1.0-4.0 X 10^3 Monocytes # (Auto) 0.6 0.0-1.0 X 10^3 Eosinophils # (Auto) 0.1 0.0-0.3 10^3/uL Basophils # (Auto) 0.1 0.0-0.1 10^3/uL Prothrombin Time 13.3 12.2-14.7 SEC INR Comment 1.0 0.8-1.4 Activated Partial Thromboplast Time 29 24-35 SEC Sodium Level 138 135-145 MMOL/L Potassium Level 4.9 3.6-5.0 MMOL/L Chloride Level 106 98-107 MMOL/L Carbon Dioxide Level 22 21-32 MMOL/L Anion Gap 10 5-14 MMOL/L Blood Urea Nitrogen 20 H 7-18 MG/DL Creatinine 1.03 0.60-1.30 MG/DL Estimat Glomerular Filtration Rate 52 BUN/Creatinine Ratio 19 Glucose Level 97 70-105 MG/DL Calcium Level 9.7 8.5-10.1 MG/DL Corrected Calcium 9.7 8.5-10.1 MG/DL Magnesium Level 2.2 1.8-2.4 MG/DL Total Bilirubin 0.5 0.1-1.0 MG/DL Aspartate Amino Transf (AST/SGOT) 30 5-34 U/L Alanine Aminotransferase (ALT/SGPT) 22 0-55 U/L Alkaline Phosphatase 51 40-136 U/L Myoglobin 183.3 H 10.0-92.0 NG/ML Troponin I < 0.30 <0.30 NG/ML B-Type Natriuretic Peptide 83.5 <100.0 PG/ML Total Protein 6.8 6.4-8.2 GM/DL Albumin 4.0 3.2-4.5 GM/DL Lipase 47 8-78 U/L My Orders Orders - SANJIV UNGER Nitroglycerin 0.4 Mg Btl 25's (Nitrostat (10/10/17 11:53) Aspirin Chewable Tablet (Baby Aspirin Ch (10/10/17 11:53) Cbc With Automated Diff (10/10/17 11:58) Magnesium (10/10/17 11:58) Chest 1 View, Ap/Pa Only (10/10/17 11:58) Ekg Tracing (10/10/17 11:58) Cardiac Profile 1 (10/10/17 11:58) Comprehensive Metabolic Panel (10/10/17 11:58) Myoglobin Serum (10/10/17 11:58) Protime With Inr (10/10/17 11:58) Partial Thromboplastin Time (10/10/17 11:58) O2 (10/10/17 11:58) Monitor-Rhythm Ecg Trace Only (10/10/17 11:58) Lipid Panel (10/11/17 06:00) Aspirin Chewable Tablet (Baby Aspirin Ch (10/10/17 12:00) Nitroglycerin 0.4 Mg Btl 25's (Nitrostat (10/10/17 12:00) Saline Lock/Iv-Start (10/10/17 11:58) Lipase (10/10/17 11:58) BNP (10/10/17 11:58) Medications Given in ED Current Medications Medications Dose Ordered Sig/Kendall Route Start Time Stop Time Status Last Admin Dose Admin Aspirin 162 mg ONCE ONCE PO 10/10/17 12:00 10/10/17 12:01 DC 10/10/17 11:59 162 MG Nitroglycerin 0.4 mg UD PRN SL 10/10/17 12:00 10/10/17 12:03 0.4 MG Vital Signs/I&O 10/10/17 11:50 Temp 97.7 Pulse 67 Resp 14 B/P (MAP) 149/84 (105) Pulse Ox 98 O2 Delivery Room Air Progress Progress Note : Time: 12:04 Progress Note Initial EKG unremarkable. We'll obtain chest x-ray battery of labs to include lipase and give her some nitroglycerin and reevaluate. Dr. Jackson, cardiac catheterization August 2017. 80% ostial and proximal stenosis of the right coronary artery which was stented. Mid right coronary artery is 40-50% stenosis. Left coronary artery system is diffuse mild plaques. Elevated left ventricular end-diastolic pressure approximately 20 mmHg. 2-D echocardiogram August 2017 [address] Jackson: Left ventricle size thickness and systolic function are normal with an EF of 55- 60%. Mild regurgitation of the mitral and aortic valves. Pulmonary artery systolic pressure is 30-35 mmHg. ED ACS 19 points. Not low risk. This patient is not a candidate for early discharge and should receive a standard chest pain evaluation with delayed troponin testing. Initial ECG Impression Date: Oct 10, 2017 Initial ECG Impression Time: 11:52 Initial ECG Rate: 67 Initial ECG Rhythm: Normal Sinus Initial ECG Intervals: Normal Initial ECG Impression: Normal Initial ECG Comparisson: Unchanged Comment No ST elevation or depression. Diagnostic Imaging Diagonstic Imaging: Xray Plain Films/CT/US/NM/MRI: chest (1v) Comments No acute cardiopulmonary processes noted. 11 sets of ribs above the diaphragm consistent with COPD. [facility] [place], [place] NAME: ALFREDOJESS K [facility] REC#: [id number] PT STATUS: REG ER : 1940 PHYSICIAN: SANJIV UNGER MD ADMIT DATE: 10/10/17/ER Draft Date of Exam:10/10/17 CHEST 1 VIEW, AP/PA ONLY EXAMINATION: Chest radiograph, portable AP view. DATE: October 10, 2017 at 1209 hours. INDICATION: 77-year-old female, chest pain. COMPARISON: August 18, 2017. FINDINGS: Stable overall appearance of the cardio mediastinal silhouette. There is no identified pneumothorax. There is no large pleural effusion. There is no identified focal airspace consolidation. There are probable right carotid vascular calcifications. IMPRESSION: No identified acute cardiopulmonary abnormality. Dictated on workstation # [id number] Dict: 10/10/17 1211 Trans: 10/10/17 1213 [facility] [id number] Interpreted by: BERNADINE HARRIS MD Electronically signed by: Reviewed: Reviewed by Me Departure Communication (Admissions) Time/Spoke to Admitting Phy: 13:10 Dr Jackson Time/Spoke to Consulting Phy: 13:00 Discussed case lab imaging EKG with Dr. Laws and he recommends the patient stay overnight nothing by mouth at midnight and continue home medicines. Impression Primary Impression: Chest pain Qualified Codes: R07.9 - Chest pain, unspecified Disposition: ADMITTED INPATIENT Condition: Improved Admissions Decision to Admit Reason: Admit from ER (General) Decision to Admit/Date: Oct 10, 2017 Time/Decision to Admit Time: 13:13 Departure-Patient Inst. Referrals: VERONIQUE ALEXANDRE MD (PCP/Family) Primary Care Physician SANJIV UNGER Oct 10, 2017 12:05
[2017-10-10 12:11] LABS: BASOPHILS # (AUTO) 0.1 10^3/uL (0.0-0.1); BASOPHILS % (AUTO) 1 % (0-10); EOSINOPHILS # (AUTO) 0.1 10^3/uL (0.0-0.3); EOSINOPHILS % (AUTO) 2 % (0-10); HEMATOCRIT 35 % (35-52); HEMOGLOBIN 11.8 G/DL (11.5-16.0); LYMPHOCYTES # (AUTO) 1.7 X 10^3 (1.0-4.0); LYMPHOCYTES % (AUTO) 31 % (12-44); MEAN CORPUSCULAR HEMOGLOBIN 32 PG (25-34); MEAN CORPUSCULAR HGB CONC 34 G/DL (32-36); MEAN CORPUSCULAR VOLUME 93 FL (80-99); MEAN PLATELET VOLUME 9.8 FL (7.4-10.4); MONOCYTES # (AUTO) 0.6 X 10^3 (0.0-1.0); MONOCYTES % (AUTO) 11 % (0-12); NEUTROPHILS # (AUTO) 3.1 X 10^3 (1.8-7.8); NEUTROPHILS % (AUTO) 55 % (42-75); PLATELET COUNT 253 10^3/uL (130-400); RED BLOOD COUNT 3.74 10^6/uL (4.35-5.85); RED CELL DISTRIBUTION WIDTH 13.8 % (10.0-14.5); WHITE BLOOD COUNT 5.6 10^3/uL (4.3-11.0)
--- NOTE | 2017-10-10 12:14 | Diagnostic Imaging Report ---
EXAMINATION: Chest radiograph, portable AP view. DATE: October 10, 2017 at 1209 hours. INDICATION: 77-year-old female, chest pain. COMPARISON: August 18, 2017. FINDINGS: Stable overall appearance of the cardiomediastinal silhouette. There is no identified pneumothorax. There is no large pleural effusion. There is no identified focal airspace consolidation. There are probable right carotid vascular calcifications. IMPRESSION: No identified acute cardiopulmonary abnormality. Dictated by: Dictated on workstation # [id number]
[2017-10-10] MEDS ORDERED: ATOR20TA66 (12:16)
[2017-10-10 12:21] LABS: PROTHROMBIN TIME PATIENT 13.3 SEC (12.2-14.7)
[2017-10-10 12:29] LABS: ALANINE AMINOTRANSFERASE 22 U/L (0-55); ALKALINE PHOSPHATASE 51 U/L (40-136); BILIRUBIN,TOTAL 0.5 MG/DL (0.1-1.0); BUN/CREATININE RATIO 19; CALCIUM 9.7 MG/DL (8.5-10.1); CARBON DIOXIDE 22 MMOL/L (21-32); CHLORIDE 106 MMOL/L (98-107); CREATININE SERUM 1.03 MG/DL (0.60-1.30); GFR ESTIMATED 52; GLUCOSE 97 MG/DL (70-105); LIPASE 47 U/L (8-78); MAGNESIUM 2.2 MG/DL (1.8-2.4); POTASSIUM 4.9 MMOL/L (3.6-5.0); SODIUM 138 MMOL/L (135-145); TOTAL PROTEIN 6.8 GM/DL (6.4-8.2)
[2017-10-10 12:36] LABS: MYOGLOBIN SERUM 183.3 NG/ML (10.0-92.0)
--- OUTSIDE RECORDS SUMMARY | 2017-10-10 13:30 | XMS REPORT | Clinical Summary ---
Author Author [facility] Organization [facility] Address Unknown Phone Unavailable Care Team Providers Care Financial Advisor Trainee Name Role Phone Doctor, Miscellaneous Unavailable Unavailable [...] in the Health Information Management department at [phone] for further assistance in locating additional records.[facility] Allergies Active Allergy Reactions Severity Noted Date [...] vaginal mesh to surrounding organ or tissue ([facility]) 04/17 Last Assessment & Plan: prior mesh [...] the vaginal opening) Mentioned surgical repairs involving [place] tissue repairs (using patient tissues and sutures) [...] Taken Blood Pressure 122/73 01/15/2016 1:02 PM [employer] Pulse 80 01/15/2016 1:02 PM [employer] Temperature 36.4 C (97.6 F) 01/15/2016 1:02 PM [employer] Respiratory Rate 16 01/15/2016 1:02 PM [employer] Oxygen Saturation 95% 01/30/2015 3:06 PM [employer] Inhaled Oxygen - - Concentration Weight 71.6 kg (157 lb 12.8 oz) 01/15/2016 1:02 PM [employer] Height 163.8 cm (5' 4.49") 01/15/2016 1:02 PM [employer] Body Mass Index 26.68 01/15/2016 1:02 PM [employer] Plan of Treatment Health Maintenance Due Date [...]
--- OUTSIDE RECORDS SUMMARY | 2017-10-10 13:32 | XMS REPORT | Continuity of Care Document ---
Author Author [facility] Organization [facility] Address Unknown Phone Unavailable Allergies Active Description Code Type Severity Reaction Onset Reported/Identified Relationship to Patient Clinical Status Yes Sulfa (Sulfonamide Antibiotics) [id number] Drug Allergy Unknown N/A 2012 Yes erythromycin base [id number] Drug Allergy Unknown N/A 09/02/2016 Yes CORTISOL [...] TRTMT FO MARIELLA JESUS Ot Z79.899 OTHER [facility] (CURRENT[facility] DRUG THERAPY MARIELLA JESUS Ot Z85.3 [...] FACP CCDS Ot 414.01 CORONARY ATHEROSCLEROSIS OF [place] CORON 08/15/2012 MAGGIE WATKINS MD, FACC FACP [...] ROLAND CAICEDO FACCMAGGIE FACP CCDS Ot V72.81 [id number] CARDIOVASCULAR 05/25/2016 ORENDER DO, GATO S Ot [...] 06/30/2016 MARIELLA JESUS N Ot Z79.899 OTHER [facility] (CURRENT) DRUG THERAPY 06/30/2016 MARIELLA JESUS N [...] 07/07/2016 MARIELLA JESUS N Ot Z79.899 OTHER [employer] (CURRENT) DRUG THERAPY 07/07/2016 ANN MARIEMARIELLA JOHNS [...] 08/23/2016 MARIELLA JESUS N Ot Z79.899 OTHER [employer] [facility] (CURRENT) DRUG THERAPY 08/23/2016 ANN MARIEMARIELLA N [...] 09/02/2016 MARIELLA JESUS N Ot Z79.899 [facility] (CURRENT) DRUG THERAPY 09/02/2016 MARIELLA JESUS [place] [...] MITRAL/AORTIC YISEL INSUFF 10/15/2016 ROLAND MARRERO, MAG[facility]IE [facility] CCDS Ot 397.0 TRICUSPID VALVE DISEASE 10/15/2016 ROLAND CAICEDO [facility], MAGGIE [facility] CCDS Ot 786.09 RESPIRATORY ABNORM NEC 10/15/2016 ROLAND CAICEDO [facility], MAGGIE [facility] CCDS Ot V72.81 [id number] CARDIOVASCULAR 10/15/2016 RICCARDO BAILEY DOLINE S Ot 486 PNEUMONIA, ORGANISM NOS 10/15/2016 ORENDER DO, GATO S Ot 786.05 SHORTNESS OF BREATH 10/15/2016 ORENDER DO, GATO S Ot V10.3 HX OF BREAST MALIGNANCY 10/15/2016 CHRISITANONDER DO GATO S Ot 786.2 COUGH 10/15/2016 [...] FO 10/15/2016 MARIELLA JESUS Ot Z79.899 OTHER [employer] (CURRENT) DRUG THERAPY 10/15/2016 MARIELLA JESUS Ot [...] S Ot 786.2 COUGH 10/18/2016 ROLAND CAICEDO [facility], ALI FACP CCDS Ot 250.00 DIAB PARESH WO COMPL, TYPE II OR UNSPEC TY 10/18/2016 ROLAND CAICEDO FAC, ALI FACP CCDS Ot 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 10/18/2016 ROLAND MARRERO, ALI FACP CCDS Ot 397.0 TRICUSPID VALVE DISEASE 10/18/2016 ROLAND CAICEDO FACC, ALI FACP CCDS Ot 786.09 RESPIRATORY ABNORM NEC 10/18/2016 ROLAND CAICEDO FACC, ALI FACP CCDS Ot V72.81 [id number] CARDIOVASCULAR 10/18/2016 VIANNEY BAILEY DOQUELINE S Ot [...] FO 10/18/2016 MARIELLA JESUS Ot Z79.899 OTHER [employer] [facility] (CURRENT) DRUG THERAPY 10/18/2016 MARIELLA JESUS Ot [...] 11/01/2016 MARIELLA JESUS [place] Ot Z79.899 OTHER [employer] (CURRENT) DRUG THERAPY 11/01/2016 MARIELLA JESUS Ot Z85.3 PERSONAL HISTORY OF MALIGNANT NEOPLASM O 11/01/2016 MARIELLA JESUS N Ot Z90.11 ACQUIRED ABSENCE OF RIGHT BREAST AND NIP 04/26/2017 LUCASANDREY Desai S HEAD SILVERMAN Ot E03.9 HYPOTHYROIDISM, UNSPECIFIED 04/26/2017 LUCASANDREY Desai S HEAD SILVERMAN Ot K21.9 GASTRO-ESOPHAGEAL REFLUX DISEASE WITHOUT 04/26/2017 LUCASANDREY Desai S HEAD SILVERMAN Ot Z08 ENCNTR FOR FOLLOW-UP EXAM AFTER TRTMT FO 04/26/2017 ANDREY LUCAS S HEAD SILVERMAN Ot Z79.899 [facility] (CURRENT) DRUG THERAPY 04/26/2017 BRUNA LUCASAH S HEAD SILVERMAN Ot Z85.3 PERSONAL HISTORY OF MALIGNANT NEOPLASM O 04/26/2017 ANDREY LUCAS S HEAD SILVERMAN Ot Z90.11 ACQUIRED ABSENCE OF RIGHT BREAST AND NIP 05/01/2017 ANDREY LUCAS S HEAD SILVERMAN Ot E03.9 HYPOTHYROIDISM, UNSPECIFIED 05/01/2017 ANDREY LUCAS S HEAD SILVERMAN Ot K21.9 GASTRO-ESOPHAGEAL REFLUX DISEASE WITHOUT 05/01/2017 LUCASANDREY S HEAD SILVERMAN Ot Z08 ENCNTR FOR FOLLOW-UP EXAM AFTER TRTMT FO 05/01/2017 ANDREY LUCAS HEAD SILVERMAN Ot Z79.899 [facility] (CURRENT) DRUG THERAPY 05/01/2017 ANDREY LUCAS HEAD SILVERMAN Ot Z85.3 PERSONAL HISTORY OF MALIGNANT NEOPLASM O 05/01/2017 ANDREY LUCAS HEAD SILVERMAN Ot Z90.11 ACQUIRED ABSENCE OF RIGHT BREAST AND NIP 05/26/2017 ANDREY LUCAS HEAD SILVERMAN Ot E03.9 HYPOTHYROIDISM, UNSPECIFIED 05/26/2017 ANDREY LUCAS HEAD SILVERMAN Ot K21.9 GASTRO-ESOPHAGEAL REFLUX DISEASE WITHOUT 05/26/2017 ANDREY LUCAS HEAD SILVERMAN Ot Z08 ENCNTR FOR FOLLOW-UP EXAM AFTER TRTMT FO 05/26/2017 ANDREY LUCASP Ot Z79.899 OTHER [facility] (CURRENT) DRUG THERAPY 05/26/2017 ANDREY LUCASP Ot [...] CAICEDO FACC, MAGGIE MARREROP CCDS Ot V72.81 [id number] CARDIOVASCULAR 06/01/2017 RYLANDANNETTE RICCARDO NAYLORLINE S Ot [...] Ot 573.8 LIVER DISORDERS NEC 06/01/2017 FRANKLIN ACICEDO, BARB Ewing Ot 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 DISC DEGEN 06/01/2017 ANDREY LUCAS HEAD SILVERMAN Ot E03.9 HYPOTHYROIDISM, UNSPECIFIED 06/01/2017 ANDREY LUCAS HEAD SILVERMAN Ot K21.9 GASTRO-ESOPHAGEAL REFLUX DISEASE WITHOUT 06/01/2017 ANDREY LUCAS HEAD SILVERMAN Ot Z08 ENCNTR FOR FOLLOW-UP EXAM AFTER TRTMT FO 06/01/2017 ANDREY LUCAS HEAD SILVERMAN Ot Z79.899 OTHER [employer] [facility] (CURRENT) DRUG THERAPY 06/01/2017 ANDREY LUCAS HEAD SILVERMAN Ot Z85.3 PERSONAL HISTORY OF MALIGNANT NEOPLASM O 06/01/2017 ANDREY LUCAS HEAD SILVERMAN Ot Z90.11 ACQUIRED ABSENCE OF RIGHT BREAST [...] 397.0 TRICUSPID VALVE DISEASE 06/01/2017 ROLAND CAICEDO [facility], MAGGIE MARRERO CCDS Ot 786.09 RESPIRATORY ABNORM NEC 06/01/2017 ROLAND CAICEDO FAC, MAGGIE [facility] CCDS Ot V72.81 [id number] CARDIOVASCULAR 06/01/2017 CHRISTIANONDER , GATO S Ot [...] OF MALIGNANT NEOPLASM O 06/01/2017 ANDREY LUCAS HEAD SILVERMAN Ot E03.9 HYPOTHYROIDISM, UNSPECIFIED 06/01/2017 ANDREY LUCASP Ot K21.9 GASTRO-ESOPHAGEAL REFLUX DISEASE WITHOUT 06/01/2017 ANDREY LUCAS HEAD SILVERMAN Ot Z08 ENCNTR FOR FOLLOW-UP EXAM AFTER TRTMT FO 06/01/2017 ANDREY LUCAS HEAD SILVERMAN Ot Z79.899 OTHER [employer] [facility] [facility] (CURRENT) DRUG THERAPY 06/01/2017 ANDREY LUCAS HEAD SILVERMAN Ot Z85.3 PERSONAL HISTORY OF MALIGNANT NEOPLASM O 06/01/2017 ANDREY LUCASP Ot Z90.11 ACQUIRED ABSENCE OF RIGHT BREAST AND NIP 08/18/2017 CHRISTIANONDER DO, GATO S Ot 786.05 SHORTNESS OF BREATH 08/18/2017 CHRISTIANONDER DO, GATO S Ot 786.2 COUGH 08/18/2017 ROLAND CAICEDO [facility], MAGGIE MARREROP CCDS Ot 250.00 DIAB PARESH WO COMPL, TYPE II OR UNSPEC TY 08/18/2017 ROLAND CAICEDO [facility], MAGGIE FACP CCDS Ot 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 08/18/2017 ROLAND MARRERO, MAGGIE FACP CCDS Ot 397.0 TRICUSPID VALVE DISEASE 08/18/2017 ROLAND CAICEDO FACC, MAGGIE FACP CCDS Ot 786.09 RESPIRATORY ABNORM NEC 08/18/2017 ROLAND CAICEDO [facility], MAGGIE FACP CCDS Ot V72.81 [id number] CARDIOVASCULAR 08/18/2017 ORENDER DO GATO S Ot [...] FO 08/18/2017 ANDREY LUCAS Ot Z79.899 OTHER [employer] (CURRENT) DRUG THERAPY 08/18/2017 ANDREY LUCAS HEAD SILVERMAN Ot Z85.3 PERSONAL HISTORY OF MALIGNANT NEOPLASM [...] EMMANUEL Ot I25.10 ATHSCL HEART DISEASE OF [place] CORONARY 08/21/2017 LORENZO NAYLOR EMMANUEL Ot I97.630 [...] BLO 08/21/2017 ELIZ VENTURA DOI Ot Z79.82 [facility] (CURRENT) USE OF ASPIRIN 08/21/2017 ELIZ VENTURA [...] EMMANUEL Ot I25.10 ATHSCL HEART DISEASE OF [place] CORONARY 08/25/2017 LORENZO NAYLOR EMMANUEL Ot I97.630 [...] BLO 08/25/2017 LORENZO NAYLOR EMMANUEL Ot Z79.82 [facility] (CURRENT) USE OF ASPIRIN 08/25/2017 LORENZO NAYLOR [...] EMMANUEL Ot I25.10 ATHSCL HEART DISEASE OF [place] CORONARY 08/25/2017 LORENZO NAYLOR EMMANUEL Ot I97.630 [...] BLO 08/25/2017 LORENZO NAYLOR EMMANUEL Ot Z79.82 [employer] (CURRENT) USE OF ASPIRIN 08/25/2017 LORENZO NAYLOR EMMANUEL Ot Z85.3 PERSONAL HISTORY OF MALIGNANT NEOPLASM O 08/25/2017 LORENZO NAYLOR EMMANUEL Ot Z90.11 ACQUIRED ABSENCE OF RIGHT BREAST AND NIP 08/26/2017 LORENZO NAYLOR EMMANUEL Ot D62 ACUTE POSTHEMORRHAGIC ANEMIA 08/26/2017 LORENZO NAYLOR EMMANEUL Ot E03.9 HYPOTHYROIDISM, UNSPECIFIED 08/26/2017 LORENZO NAYLOR EMMANUEL Ot E11.9 TYPE 2 DIABETES MELLITUS WITHOUT COMPLIC 08/26/2017 LORENZO NAYLOR EMMANUEL Ot F41.9 ANXIETY DISORDER, UNSPECIFIED 08/26/2017 LORENZO NAYLOR EMMANUEL Ot 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 08/26/2017 LORENZO NAYLOR EMMANUEL Ot I10 ESSENTIAL (PRIMARY) HYPERTENSION 08/26/2017 LORENZO NAYLOR EMMANUEL Ot I25.10 ATHSCL HEART DISEASE OF [place] CORONARY 08/26/2017 LORENZO NAYLOR EMMANUEL Ot I97.630 [...] BLO 08/26/2017 ELIZ VENTURA DOI Ot Z79.82 [facility] (CURRENT) USE OF ASPIRIN 08/26/2017 ELIZ VENTURA [...] EMMANUEL Ot I25.10 ATHSCL HEART DISEASE OF [place] CORONARY 09/25/2017 LORENZO NAYLOR EMMANUEL Ot I97.630 [...] BLO 09/25/2017 ELIZ VENTURA DOI Ot Z79.82 [facility] (CURRENT) USE OF ASPIRIN 09/25/2017 EMMANUEL VENTURA [...] ABO+Rh group AP NRG Transfusion band number [id number] NRG Blood group antibody screen NEGATIVE NRG [...] Status Pt. Type Provider Facility Loc./Unit Complaint [id number] 08/18/2017 16:00:00 08/21/2017 14:30:00 DIS Outpatient VENTURA EMMANUEL [facility] CATH CHEST PAIN ON EXERTION [id number] 04/25/2017 13:46:00 04/25/2017 23:59:59 CLS Outpatient ANDREY LUCAS [facility] ONC [id number] 10/25/2016 09:39:00 11/01/2016 08:36:00 DIS Outpatient MARIELLA JESUS [facility] ONC [id number] 10/18/2016 13:45:00 10/18/2016 23:59:59 CLS Preadmit MARIELLA JESUS [facility] RAD BREAST CANCER [id number] 09/02/2016 12:03:00 09/02/2016 23:59:59 CLS Outpatient VERONIQUE ALEXANDRE MD [facility] CARD CHRONIC PAIN R68.89 [id number] 07/29/2016 15:44:00 08/23/2016 14:40:00 DIS Outpatient MARIELLA JESUS [facility] REHAB LYMPHEDEMA OF ARM; BREAST CANCER [id number] 06/14/2016 09:46:00 08/23/2016 00:01:00 DIS Outpatient MARIELLA JESUS [facility] ONC [id number] 05/01/2015 14:50:00 05/01/2015 23:59:59 CLS Outpatient JUSTUS VINSON [facility] QUICK URINE CULTURE [id number] 03/08/2015 12:22:00 03/08/2015 23:59:59 CLS Outpatient HEIKE YORK APRN [facility] QUICK [id number] 01/28/2015 12:34:00 01/28/2015 15:56:00 DIS Emergency JEFFERSON TUCKER MD [facility] ER ABD PAIN FEVER [id number] 07/10/2014 16:04:00 07/10/2014 23:59:59 CLS Outpatient FRANKLIN CAICEDO, BARB Ewing [facility] RAD NECK PAIN [id number] 10/15/2013 08:09:00 10/15/2013 23:59:59 CLS Outpatient CHRISTIANONDANNETTE NAYLOR GATO S [facility] RAD LIVER CYST [id number] 10/05/2013 09:53:00 10/05/2013 23:59:59 CLS Outpatient CHRISTIANONDANNETTE NAYLOR GATO S [facility] RAD COUGH,ABD PAIN, HX OF BREAST CA [id number] 06/19/2013 14:27:00 06/19/2013 23:59:59 CLS Outpatient LEO NAYLOR GATO S [facility] RAD HX OF BREAST CA [id number] 09/04/2012 15:06:00 09/04/2012 17:49:00 DIS Emergency NINI HUGHES MD [facility] ER LEFT SIDE HEAD PAIN, REDUCED VISION [id number] 08/15/2012 07:14:00 08/15/2012 16:30:00 DIS Outpatient ROLAND CAICEDO FACC, MAGGIE KHOURY CCDS [facility] CATH SOB,FATIGUE [id number] 08/11/2012 07:42:00 08/11/2012 23:59:59 CLS Outpatient MAGGIE WATKINS MD, FACC, FACP CCDS [facility] CARD DYSPNEA, DIABETES [id number] 06/21/2012 15:59:00 06/21/2012 23:59:59 CLS Outpatient LEO NAYLOR GATO S [facility] RAD SOB,COUGH [id number] 06/10/2012 10:25:00 06/15/2012 11:15:00 DIS Inpatient LEO NAYLOR GATO S [facility] 4TH PNEUMONIA [id number] 06/01/2017 09:54:00 Document Registration [id number] 06/01/2017 09:54:00 Document Registration [id number] 05/25/2016 09:07:00 Document Registration [id number] 12/23/2010 13:50:00 Document Registration [id number] 12/09/2010 13:19:00 Document Registration [id number] 12/07/2010 11:19:00 Document Registration [id number] 11/19/2010 06:41:00 Document Registration [id number] 04/14/2010 10:14:00 Document Registration [id number] 05/10/2008 10:18:00 Document Registration [id number] 09/29/2007 10:09:00 Document Registration
[2017-10-10 13:50] VITALS: BP 123/69
[2017-10-10] MEDS ORDERED: morphine INJ 4 MG/ML 1 ML (VIAL/SYRINGE) IVP PRN (14:15)
[2017-10-10] MEDS ORDERED: ONDANSETRON 4 MG/2 ML (SDV) Z0FRAN IVP PRN (14:15)
[2017-10-10] MEDS ORDERED: ACETAMINOPHEN 500 MG TAB (TYLENOL) PO PRN (14:15)
[2017-10-10] MEDS ORDERED: RANI150T46 PO (14:23)
[2017-10-10 19:00] VITALS: BP 137/64
[2017-10-10 20:00] VITALS: BP 138/69
[2017-10-10] MEDS: ATORVASTATIN 80 MG (LIPITOR) TABLET PO SCH (20:01)
[2017-10-10 21:00] VITALS: BP 146/67
[2017-10-11] VITALS (8 sets, daily range): BP systolic 100–160; BP diastolic 48–85
[2017-10-11 03:52] LABS: BASOPHILS % (AUTO) 1 % (0-10); EOSINOPHILS # (AUTO) 0.2 10^3/uL (0.0-0.3); EOSINOPHILS % (AUTO) 3 % (0-10); HEMATOCRIT 36 % (35-52); HEMOGLOBIN 11.6 G/DL (11.5-16.0); LYMPHOCYTES # (AUTO) 2.2 X 10^3 (1.0-4.0); LYMPHOCYTES % (AUTO) 39 % (12-44); MEAN CORPUSCULAR HEMOGLOBIN 31 PG (25-34); MEAN CORPUSCULAR HGB CONC 33 G/DL (32-36); MEAN CORPUSCULAR VOLUME 96 FL (80-99); MEAN PLATELET VOLUME 10.1 FL (7.4-10.4); MONOCYTES # (AUTO) 0.9 X 10^3 (0.0-1.0); MONOCYTES % (AUTO) 15 % (0-12); NEUTROPHILS # (AUTO) 2.5 X 10^3 (1.8-7.8); NEUTROPHILS % (AUTO) 43 % (42-75); PLATELET COUNT 259 10^3/uL (130-400); RED BLOOD COUNT 3.71 10^6/uL (4.35-5.85); RED CELL DISTRIBUTION WIDTH 13.9 % (10.0-14.5); WHITE BLOOD COUNT 5.8 10^3/uL (4.3-11.0)
[2017-10-11 04:11] LABS: BUN/CREATININE RATIO 23; CALCIUM 9.7 MG/DL (8.5-10.1); CARBON DIOXIDE 25 MMOL/L (21-32); CHLORIDE 105 MMOL/L (98-107); CHOLESTEROL 180 MG/DL (< 200); GFR ESTIMATED > 60; GLUCOSE 94 MG/DL (70-105); HDL CHOLESTEROL 52 MG/DL (40-60); POTASSIUM 4.4 MMOL/L (3.6-5.0); SODIUM 140 MMOL/L (135-145); TRIGLYCERIDES 123 MG/DL (<150); VLDL CHOLESTEROL 25 MG/DL (5-40)
[2017-10-11] MEDS: LEVOTHYROXINE 88 MCG (LEVOTHORID) TAB PO SCH (04:53)
[2017-10-11] MEDS: ACEBUTOLOL 200 MG (SECTRAL) CAPSULE PO SCH (07:34)
[2017-10-11] MEDS: CLOPIDOGREL 75 MG (PLAVIX) TABLET PO SCH (07:34)
[2017-10-11] MEDS: lisINopril 5 MG (PRINIVIL) TABLET PO SCH (07:35)
--- NOTE | 2017-10-11 08:53 | Cardiology History & Physical ---
HPI-Cardiology Cardiology H&P Date of Admission 10-10-17 Primary Care Physician Yanira Fuchs MD Attending Physician Alfredo Jackson MD [facility] Ccds Consulting Physician HILARIO Ms. Hu is a 77 year old female admitted to ICU 5 from the ED with c/o chest discomfort. She reports last night she was watching television at home when she had a sudden onset or right sided discomfort which started under her right breast and radiated up her chest, into her neck and shoulder. She describes it as a deep pain which she rates a 10 on a 1-10 pain scale. She reports feeling diaphoretic at the time. She states the discomfort almost doubled her over. She reports after approx 10-15 minutes it eased up, but did not completely resolved. She reports after 30-45 min she had called her daughter and came to the ED. She reports upon arrival to the ED she continued to have discomfort, but felt it had eased up. She reports she had an episode early this morning where she felt the pain may be returning, but it subsided after a few minutes. She denies any other assoc symptoms. No c/o SOB, palpitations, syncope or near syncope. No c/o LE edema. She reports she took a few TUMS, but this did not help the pain at all. She is pain at the time of this interview. Her daughter is at the bedside. Review of Systems-Cardiology Review of Systems Constitutional: No chills, No fever Eyes: No vision change Ears/Nose/Throat: no symptoms reported Respiratory: As described under HPI Cardiovascular: As described under HPI Gastrointestinal: No diarrhea, No nausea, No vomiting Genitourinary: No dysuria Musculoskeletal: no symptoms reported Skin: No rash, No ulcerations Psychiatric/Neurological: anxiety; No seizure, No focal weakness, No syncope Hematologic: easy bleeding, easy bruising; No bleeding abnormalities [facility] Hx Patient Social History Alcohol Use: Occasionally Uses Recreational Drug Use: No Smoking Status: Never a Smoker 2nd Hand Smoke Exposure: Yes Recent Foreign Travel: No Recent Infectious Disease Expo: No Hospitalization with Isolation: Denies Physical Abuse Screen: No Sexual Abuse: No Immunizations Up To Date Tetanus Booster (TDap): More than 5yrs Date of Pneumonia Vaccine: Nov 18, 2009 Past Medical History PMH As described under Assessment. Family Medical History Family Medical History: She reports her mother and father both had CAD and a h/o SCD. Family History: Patient reports no known family medical history. Allergies and Home Medications Allergies Coded Allergies: Sulfa (Sulfonamide Antibiotics) (Unverified Allergy, Unknown, 08/15/12) erythromycin base (Unverified Allergy, Unknown, 09/02/16) Uncoded Allergies: CORTISOL (Adverse Reaction, Unknown, 08/18/17) PT STATES CAUSES PSYCHOSIS Home Medications Aspirin 325 Mg Tablet.dr, 325 MG PO DAILY, (Reported) Cholecalciferol (Vitamin D3) 5,000 Unit Capsule, 5,000 UNIT PO DAILY, (Reported) Clopidogrel Bisulfate 75 Mg Tablet, 75 MG PO DAILY Prescribed by: JENNIFER BACK on 08/21/17 0842 Cyanocobalamin (Vitamin B-12) 1,000 Mcg Tablet, 1,000 MCG PO DAILY, (Reported) Levothyroxine Sodium 88 Mcg Tablet, 88 MCG PO DAILY, (Reported) Pindolol 10 Mg Tablet, 10 MG PO DAILY, (Reported) Ranitidine HCl 75 Mg Tablet, 75 MG PO DAILY, (Reported) Tramadol HCl 50 Mg Tablet, 50 MG PO Q6H PRN for PAIN-MODERATE, (Reported) Patient Home Medication List Home Medication List Reviewed: Yes Physical Exam-Cardiology Physical Exam Vital Signs/I&O 10/11/17 10/12/17 10/12/17 10/12/17 23:35 00:00 01:00 03:41 Temp 97.4 97.5 Pulse 67 74 Resp 20 B/P (MAP) 114/56 (75) Pulse Ox 98 97 O2 Delivery Room Air Room Air 10/12/17 10/12/17 10/12/17 04:00 08:53 08:53 Temp 97.5 Pulse 84 Resp 16 B/P (MAP) 117/76 (90) Pulse Ox 97 100 100 O2 Delivery Room Air Room Air Room Air 10/12/17 00:00 Intake Total 0 ml Balance 0 ml Capillary Refill : Less Than 3 Seconds Constitutional: AAO x 3, well-developed, well-nourished HEENT: PERRL, hearing is well preserved Neck: No carotid bruit; carotid pulses are 2 + bilaterally Respiratory: No accessory muscle use, No respiratory distress; chest expansion is symmetric, chest is bilaterally symmetric, lungs clear to auscultation Cardiovascular: regular rate-rhythm; No JVD; S1 and S2 Gastrointestinal: No tender; soft, round, audible bowel sounds Rectal: deferred Extremities: no lower extremity edema bilateral Neurologic/Psychiatric: grossly intact Skin: No rash, No ulcerations Data Review Labs Radiology NAME: JESS HU [facility] REC#: [id number] PT STATUS: REG ER : 1940 PHYSICIAN: SANJIV UNGER MD ADMIT DATE: 10/10/17/ER Signed Date of Exam: 10/10/17 CHEST 1 VIEW, AP/PA ONLY EXAMINATION: Chest radiograph, portable AP view. DATE: October 10, 2017 at 1209 hours. INDICATION: 77-year-old female, chest pain. COMPARISON: August 18, 2017. FINDINGS: Stable overall appearance of the cardiomediastinal silhouette. There is no identified pneumothorax. There is no large pleural effusion. There is no identified focal airspace consolidation. There are probable right carotid vascular calcifications. IMPRESSION: No identified acute cardiopulmonary abnormality. Dictated by: Dictated on workstation # [id number] Dict: 10/10/17 1211 Trans: 10/10/17 1306 Interpreted by: BERNADINE HARRIS MD Electronically signed by: BERNADINE HARRIS MD 10/10/17 1306 ECG Impression ECG Initial ECG Rhythm: Normal Sinus A/P-Cardiology Assessment/Admission Diagnosis Chest pain of undetermined etiology CAD. MPI of 08/19/17 shows mod inferior ischemia with normal LVEF. Card cath of showed 80% prox and ostial RCA stenosis that was successfully stented with Alp Xience 3.5x15 mm stent; mid RCA 40-50% (unchanged compared to a study of 08/15/12), mild L cor plaques, LVEDP approx 20 mmHg Large groin hematoma on the R after card cath of 08/20/17, improved Echo of 08/19/13 showed LVEF 55-60%, mild MR & TR, PASP 30-35 mmHg Mild anemia - Dr Davis managing. Blood work of 09/20/17 showed H/H 10.9/32.3 and plt 269k Mild liver enzyme elevation of undetermined etiology - Dr Davis managing Gastroesophageal reflux . History of esophageal stricture dilation by Dr. Lopez in 2000. 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 Maturity onset diabetes mellitus. Hypothyroidism being treated with thyroid replacement therapy. History of chest wall tumor removed in 1998. History of cholecystectomy. History of right total knee replacement several years ago. Admission Status: Observation Clinical Quality Measures DVT/VTE Risk/Contraindication: Risk Factor Score Per Nursin RFS Level Per Nursing on Admit: 2=Moderate IAIN SANCHEZ Oct 11, 2017 08:53
[2017-10-11] MEDS ORDERED: ASPIRIN 325 MG (5 GR) TABLET PO SCH (09:00)
[2017-10-11] MEDS ORDERED: RANI-425 PO (10:28)
[2017-10-11] MEDS ORDERED: ALPRAZolam 0.25 MG (XANAX) TAB PO NR (11:16)
[2017-10-11] MEDS ORDERED: CATHETER FLUSH 10 ML SYR IV PRN (13:45)
[2017-10-11] MEDS ORDERED: REGADENOSON 0.4 MG/5 ML SYR (LEXISCAN) IV ONE ×2 (14:38→15:00)
[2017-10-11] MEDS ORDERED: PANTOPRAZOLE 40 MG (PROTONIX) TAB PO NR (17:30)
--- NOTE | 2017-10-11 17:30 | Cardiology History & Physical ---
HPI-Cardiology Cardiology H&P Date of Admission Primary Care Physician Yanira Fuchs MD Attending Physician Alfredo Jackson MD, MA FACP [facility] CCDS Consulting Physician HILARIO CC: Chest discomfort Ms. Hu is a 77 year old female admitted to ICU 5 from the ED with c/o chest discomfort. She reports last night she was watching television at home when she had a sudden onset or right sided discomfort which started under her right breast and radiated up her chest, into her neck and shoulder. She describes it as a deep pain which she rates a 10 on a 1-10 pain scale. She reports feeling diaphoretic at the time. She states the discomfort almost doubled her over. She reports after approx 10-15 minutes it eased up, but did not completely resolved. She reports after 30-45 min she had called her daughter and came to the ED. Pain had eased up, but not resolved by the. Nitro helped some and it eventually resolved on its own. Total duration about 2 hours She reports she had an episode early this morning where she felt the pain may be returning, but it subsided after a few minutes. She denies any other assoc symptoms. No c/o SOB, palpitations, syncope or near syncope. No c/o LE edema. She reports she took a few TUMS, but this did not help the pain at all. She reports no pain at the time of this interview. Her daughter is at the bedside. Review of Systems-Cardiology Review of Systems Constitutional: No chills, No fever, No malaise; tiredness; No weight loss, No weight gain Eyes: No vision change Ears/Nose/Throat: no symptoms reported Respiratory: As described under HPI Cardiovascular: As described under HPI Gastrointestinal: No diarrhea, No nausea, No vomiting Genitourinary: No dysuria Musculoskeletal: no symptoms reported Skin: No rash, No ulcerations Psychiatric/Neurological: anxiety; No seizure, No focal weakness, No syncope Hematologic: easy bleeding, easy bruising; No bleeding abnormalities [id number]-[id number] Hx Patient Social History Alcohol Use: Occasionally Uses Recreational Drug Use: No Smoking Status: Never a Smoker 2nd Hand Smoke Exposure: Yes Recent Foreign Travel: No Recent Infectious Disease Expo: No Hospitalization with Isolation: Denies Physical Abuse Screen: No Sexual Abuse: No Immunizations Up To Date Tetanus Booster (TDap): More than 5yrs Date of Pneumonia Vaccine: Nov 18, 2009 Past Medical History PMH As described under Assessment. Family Medical History Family Medical History: She reports her mother and father both had CAD and a h/o SCD. Family History: Patient reports no known family medical history. Allergies and Home Medications Allergies Coded Allergies: Sulfa (Sulfonamide Antibiotics) (Unverified Allergy, Unknown, 08/15/12) erythromycin base (Unverified Allergy, Unknown, 09/02/16) Uncoded Allergies: CORTISOL (Adverse Reaction, Unknown, 08/18/17) PT STATES CAUSES PSYCHOSIS Home Medications Aspirin 325 Mg Tablet.dr, 325 MG PO DAILY, (Reported) Cholecalciferol (Vitamin D3) 5,000 Unit Capsule, 5,000 UNIT PO DAILY, (Reported) Clopidogrel Bisulfate 75 Mg Tablet, 75 MG PO DAILY Prescribed by: JENNIFER BACK on 08/21/17 0842 Cyanocobalamin (Vitamin B-12) 1,000 Mcg Tablet, 1,000 MCG PO DAILY, (Reported) Levothyroxine Sodium 88 Mcg Tablet, 88 MCG PO DAILY, (Reported) Pindolol 10 Mg Tablet, 10 MG PO DAILY, (Reported) Ranitidine HCl 75 Mg Tablet, 75 MG PO DAILY, (Reported) Tramadol HCl 50 Mg Tablet, 50 MG PO Q6H PRN for PAIN-MODERATE, (Reported) Patient Home Medication List Home Medication List Reviewed: Yes Physical Exam-Cardiology Physical Exam Vital Signs/I&O 10/11/17 10/11/17 10/11/17 10/11/17 07:00 07:30 07:50 08:00 Temp 96.7 Pulse 66 78 Resp 14 B/P (MAP) 154/85 (108) Pulse Ox 99 99 99 O2 Delivery Room Air Room Air Room Air 10/11/17 10/11/17 10/11/17 10/11/17 11:21 11:22 13:00 14:49 Temp 97.4 Pulse 73 71 67 Resp 12 B/P (MAP) 122/66 (84) 117/48 (71) Pulse Ox 98 98 97 O2 Delivery Room Air Room Air 10/11/17 10/11/17 10/11/17 14:54 15:50 15:55 Temp 97.0 Pulse 91 68 Resp 18 B/P (MAP) 115/67 (83) 128/79 (95) Pulse Ox 99 99 99 O2 Delivery Room Air Room Air 10/11/17 00:00 Intake Total 200 ml Balance 200 ml Capillary Refill : Less Than 3 Seconds Constitutional: AAO x 3, well-developed, well-nourished HEENT: PERRL, hearing is well preserved Neck: No carotid bruit; carotid pulses are 2 + bilaterally Respiratory: No accessory muscle use, No respiratory distress; chest expansion is symmetric, chest is bilaterally symmetric, lungs clear to auscultation Cardiovascular: regular rate-rhythm; No JVD; S1 and S2 Gastrointestinal: No tender; soft, round, audible bowel sounds Rectal: deferred Extremities: no lower extremity edema bilateral Neurologic/Psychiatric: grossly intact Skin: No rash, No ulcerations Data Review Labs Laboratory Tests 10/10/17 20:25: Troponin I < 0.30 10/11/17 03:00: White Blood Count 5.8, Red Blood Count 3.71L, Hemoglobin 11.6, Hematocrit 36, Mean Corpuscular Volume 96, Mean Corpuscular Hemoglobin 31, Mean Corpuscular Hemoglobin Concent 33, Red Cell Distribution Width 13.9, Platelet Count 259, Mean Platelet Volume 10.1, Neutrophils (%) (Auto) 43, Lymphocytes (%) (Auto) 39 , Monocytes (%) (Auto) 15H, Eosinophils (%) (Auto) 3, Basophils (%) (Auto) 1, Neutrophils # (Auto) 2.5, Lymphocytes # (Auto) 2.2, Monocytes # (Auto) 0.9, Eosinophils # (Auto) 0.2, Basophils # (Auto) 0.0, Sodium Level 140, Potassium Level 4.4, Chloride Level 105, Carbon Dioxide Level 25, Anion Gap 10, Blood Urea Nitrogen 21H, Creatinine 0.90, Estimat Glomerular Filtration Rate > 60, BUN /Creatinine Ratio 23, Glucose Level 94, Calcium Level 9.7, Triglycerides Level 123, Cholesterol Level 180, LDL Cholesterol Direct 108, VLDL Cholesterol 25, HDL Cholesterol 52 Laboratory Tests 10/10/17 12:00 10/11/17 03:00 A/P-Cardiology Assessment/Admission Diagnosis Chest pain of undetermined etiology, No evidence of ACS CAD. MPI of 08/19/17 shows mod inferior ischemia with normal LVEF. Card cath of showed 80% prox and ostial RCA stenosis that was successfully stented with Alp Xience 3.5x15 mm stent; mid RCA 40-50% (unchanged compared to a study of 08/15/12), mild L cor plaques, LVEDP approx 20 mmHg. Repeat MPI of 10/11/17 shows the same results as the one done prior to card cath (small to mod inf ischemia) Large groin hematoma on the R after card cath of 08/20/17, now resolved Echo of 08/19/13 showed LVEF 55-60%, mild MR & TR, PASP 30-35 mmHg Mild anemia - managed by pcp Gastroesophageal reflux . History of esophageal stricture dilation by Dr. Lopez in 2000. 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 Maturity onset diabetes mellitus. Hypothyroidism being treated with thyroid replacement therapy. History of chest wall tumor removed in 1998. History of cholecystectomy. History of right total knee replacement several years ago. Admission Status: Inpatient Order (span 2 midnights) Reason for Inpatient Admission: Chest discomfort, abnormal stress test, pt considering repeat cath Discussion and Recomendations * Given history and continuing abnormalities on her MPI (the same as before cor stenting of August 2017) we recommend repeat card cath. This has been discussed in detail, including pros and cons and alternatives. She is reviewing her options * Continue current card regimen Clinical Quality Measures DVT/VTE Risk/Contraindication: Risk Factor Score Per Nursin RFS Level Per Nursing on Admit: 2=Moderate ALFREDO JACKSON MD FACP FAC [facility]S Oct 11, 2017 17:30
--- NOTE | 2017-10-11 19:13 | STRESS TEST ---
DATE OF SERVICE: 10/11/2017 RESTING AND POST REGADENOSON TECHNETIUM-99M TETROFOSMIN SPECT CT IMAGING ORDERING PHYSICIAN: Alfredo Jackson MD, [place], FACP, FACC CLINICAL DIAGNOSES: Chest discomfort, coronary artery disease. Baseline images were carried out after injection of 10.08 mCi technetium-99m Tetrofosmin. This was followed by 0.4 mg regadenoson and 33 mCi of technetium-99m Tetrofosmin for stress imaging. The electrocardiogram showed sinus rhythm. There was intermittent rate-related left bundle branch block. The patient noted mild shortness of breath with the regadenoson infusion, which resolved shortly thereafter. Review of images at rest and following stress indicates a basal inferior perfusion defect which appears mostly transient. Gated images show normal global left ventricular systolic function with normal regional wall motion. Left ventricular ejection fraction is calculated to be 58%. Left ventricular end-diastolic volume is 61 mL. TID is absent (0.93). CONCLUSIONS: 1. This study is suggestive of a [id number]-[id number] amount of basal inferior ischemia. 2. Normal regional wall motion and normal global left ventricular systolic function with a calculated ejection fraction of 58%. Job ID: [id number] DocumentID: [id number] Dictated Date: 10/11/2017 16:47:34 National Facilities Manager Date: 10/11/2017 19:13:24 Dictated By: ALFREDO JACKSON MD, ESPINO[place], FACP, FACC,
[2017-10-11] MEDS: ALPRAZolam 0.5 MG (XANAX) TAB PO PRN (20:30)
[2017-10-11] MEDS: ATORVASTATIN 80 MG (LIPITOR) TABLET PO SCH (20:30)
[2017-10-12] VITALS (14 sets, daily range): BP systolic 93–143; BP diastolic 51–77
[2017-10-12] MEDS: PANTOPRAZOLE 40 MG (PROTONIX) TAB PO SCH (05:46)
[2017-10-12] MEDS: LEVOTHYROXINE 88 MCG (LEVOTHORID) TAB PO SCH (05:46)
[2017-10-12] MEDS: ACEBUTOLOL 200 MG (SECTRAL) CAPSULE PO SCH (08:54)
[2017-10-12] MEDS: ASPIRIN E.C. 81 MG (ECOTRIN) TAB PO SCH (08:54)
[2017-10-12] MEDS: lisINopril 5 MG (PRINIVIL) TABLET PO SCH (08:55)
[2017-10-12] MEDS: CLOPIDOGREL 75 MG (PLAVIX) TABLET PO SCH (08:55)
--- NOTE | 2017-10-12 09:14 | Progress Note-Cardiology ---
Cardiology SOAP Progress Note Subjective: No c/o CP this morning. No c/o dyspnea, palpitations, syncope or near syncope. Objective: I&O/Vital Signs 10/12/17 10/12/17 10/12/17 10/12/17 07:00 08:50 08:53 08:53 Temp 97.5 Pulse 69 84 Resp 16 B/P (MAP) 117/76 (90) Pulse Ox 100 100 100 O2 Delivery Room Air Room Air Room Air 10/12/17 10/12/17 10/12/17 10/12/17 11:33 11:33 12:45 15:02 Temp 98.7 99.0 Pulse 68 72 73 Resp 16 20 B/P (MAP) 126/71 (89) 122/67 (85) Pulse Ox 99 100 96 O2 Delivery Room Air Room Air Room Air 10/12/17 15:10 Pulse Ox 96 O2 Delivery Room Air 10/12/17 00:00 Intake Total 0 ml Balance 0 ml Weight (Pounds): 150 Weight (Ounces): 12.8 Weight (Calculated Kilograms): 68.145558 Constitutional: AAO x 3, well-developed, well-nourished Respiratory: No accessory muscle use, No respiratory distress; chest expansion is symmetric, chest is bilaterally symmetric, lungs clear to auscultation Cardiovascular: regular rate-rhythm; No JVD; S1 and S2 Gastrointestional: No tender; soft, round, audible bowel sounds Extremities: no lower extremity edema bilateral Neurologic/Psychiatric: grossly intact Skin: No rash, No ulcerations Results/Procedures: Labs Laboratory Tests 10/12/17 09:45: White Blood Count 5.5, Red Blood Count 3.90L, Hemoglobin 12.2, Hematocrit 37, Mean Corpuscular Volume 95, Mean Corpuscular Hemoglobin 31, Mean Corpuscular Hemoglobin Concent 33, Red Cell Distribution Width 13.7, Platelet Count 257, Mean Platelet Volume 9.4, Prothrombin Time 13.2, INR Comment 1.0, Activated Partial Thromboplast Time 29, Sodium Level 137, Potassium Level 4.5, Chloride Level 104, Carbon Dioxide Level 24, Anion Gap 9, Blood Urea Nitrogen 23H, Creatinine 1.10, Estimat Glomerular Filtration Rate 48, BUN/Creatinine Ratio 21 , Glucose Level 97, Calcium Level 9.7 Laboratory Tests 10/11/17 03:00 9/5/18 09:45 A/P: Assessment: Chest pain of undetermined etiology MPI of 10-12-47: This study is suggestive of a mpjuq-ru-ncpreqjr amount of basal inferior ischemia (similar to the MPI of 08/19/17 that led to cath of 08/20/17). Normal regional wall motion and normal global left ventricular systolic function with a calculated ejection fraction of 58% CAD. MPI of 08/19/17 shows mod inferior ischemia with normal LVEF. Card cath of showed 80% prox and ostial RCA stenosis that was successfully stented with Alp Xience 3.5x15 mm stent; mid RCA 40-50% (unchanged compared to a study of 08/15/12), mild L cor plaques. Last card cath of 10/12/17 shows a widely patent prox RCA stent, 40% mid RCA (unchanged) stenosis and mild L cor plaques, LVEDP 11 mmHg, LVEF 60% Large groin hematoma on the R after card cath of 08/20/17, now resolved Echo of 08/19/13 showed LVEF 55-60%, mild MR & TR, PASP 30-35 mmHg Gastroesophageal reflux . History of esophageal stricture dilation by Dr. Lopez in 2000. 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 Maturity onset diabetes mellitus. Hypothyroidism being treated with thyroid replacement therapy. History of chest wall tumor removed in 1998. History of cholecystectomy. History of right total knee replacement several years ago. Plan: * She has discussed with her family and is agreeable to cardiac cath * We have discussed the procedure, risks, benefits and potential complications of cardiac cath with poss ad hoc coronary intervention. She verbalizes understanding and provides informed consent * Continue current card regimen Physician Assessment Physician Assessment No cp or palp or syncope or shortness of breath Lungs: clear Cor: reg Ext: no c/c/e A&R * As documented in our note above that I updated and as noted below * Cath results are stated above. Based on cath results and hosp course, the episode of chest discomfort that brought her to this admission does not appear to be of cardiac origin. The MPI of 10/11/17 appears to have been false positive * We recommend continuation of previous cardiac regimen and addition of Protonix to the regimen and f/u with pcp for further eval for noncard c/p * Outpt card f/u is advised IAIN SANCHEZ MARINE ENGINEERING CONSULTANT Oct 12, 2017 09:14 MAGGIE WATKINS MD FACP FAC [facility]S Oct 12, 2017 17:41
[2017-10-12 09:52] LABS: HEMOGLOBIN 12.2 G/DL (11.5-16.0); MEAN PLATELET VOLUME 9.4 FL (7.4-10.4); RED BLOOD COUNT 3.9 10^6/uL (4.35-5.85); RED CELL DISTRIBUTION WIDTH 13.7 % (10.0-14.5); WHITE BLOOD COUNT 5.5 10^3/uL (4.3-11.0)
[2017-10-12 10:08] LABS: PROTHROMBIN TIME PATIENT 13.2 SEC (12.2-14.7)
[2017-10-12 10:14] LABS: CALCIUM 9.7 MG/DL (8.5-10.1); CREATININE SERUM 1.1 MG/DL (0.60-1.30); POTASSIUM 4.5 MMOL/L (3.6-5.0)
[2017-10-12] MEDS: NS IV 1000 ML 1,000 ML IV SCH (11:34)
[2017-10-12] MEDS ORDERED: HEParin 1000 UNIT/ML (10ML VIAL) FOR BOLUS ONE (14:09)
[2017-10-12] MEDS ORDERED: NS IV 1000 ML 2,000 ML ONE (14:09)
[2017-10-12] MEDS ORDERED: LIDOCAINE 1% INJ 20 ML 20 ML VIAL ONE (14:09)
[2017-10-12] MEDS: ALPRAZolam 0.5 MG (XANAX) TAB PO PRN (15:53)
[2017-10-12] MEDS ORDERED: diphenhydrAMINE 50 MG/ML INJ (BENADRYL) ONE (16:02)
[2017-10-12] MEDS ORDERED: MIDAZOLAM 5 MG/5 ML (VERSED) VIAL ONE (16:02)
[2017-10-12] MEDS ORDERED: fentaNYL INJECTION 100 MCG/2 ML AMP ONE (16:02)
[2017-10-12] MEDS ORDERED: NS IV 1000 ML 1,000 ML IV SCH (17:44)
[2017-10-12] MEDS ORDERED: PATIENT MAY USE OWN MEDS, ALL PO SCH (17:45)
[2017-10-12] MEDS: ATORVASTATIN 80 MG (LIPITOR) TABLET PO SCH (20:25)
--- NOTE | 2017-10-12 21:57 | CARDIAC CATHETERIZATION ---
DATE OF SERVICE: 10/12/2017 CARDIAC CATHETERIZATION REPORT The patient is a 77-year-old lady who is known to have had right coronary artery stenting in 08/2017 after she had presented with symptoms of unstable angina and myocardial perfusion imaging study was abnormal. She was hospitalized on 10/10/2017 with symptoms of chest discomfort. There was no evidence of acute coronary syndrome based on electrocardiogram or cardiac enzymes, but she felt that her symptoms are similar to what she had had prior to her coronary artery stenting. A myocardial perfusion imaging was indicative of inferior ischemia. Cardiac catheterization was carried out after having obtained an informed consent. PROCEDURE: She was brought to the cardiac catheterization laboratory in a fasting state. Right groin was prepared and draped in the usual sterile fashion. Lidocaine 1% was used for local anesthesia. A 5-R[place] JL4 catheter for left coronary angiography. A 5-[place] JR4 catheter for right coronary angiography. A 5-[place]and[place] pigtail catheter was used for left heart catheterization and left ventricular angiography. Pigtail catheter was pulled back to the aortic root and aortic root angiography was performed. The catheter was then removed. Manual pressure was used to achieve hemostasis. HEMODYNAMICS: Left ventricular end-diastolic pressure following coronary angiography was 11 mmHg. There was no significant pressure gradient on pullback across the aortic valve. The ascending aortic pressure was 116/58 with a mean of 83 mmHg. LEFT VENTRICULAR ANGIOGRAPHY: Left ventricular angiography was carried out in the right anterior oblique projection. Global left ventricular systolic function normal. No regional wall motion abnormalities are seen. There does not appear to be any significant mitral regurgitation. Left ventricular ejection fraction is approximately 60%. AORTIC ROOT ANGIOGRAPHY: Aortic root angiography did not indicate any significant ascending aortic aneurysm or dissection. No significant aortic regurgitation is seen. Aortic valve leaflets exhibit good leaflet excursion. [place] of the left and the right coronary artery are visualized. CORONARY ANGIOGRAPHY: Left main coronary artery is free of significant disease. Left anterior descending artery has diffuse mild plaques. Left circumflex artery is nondominant and has diffuse mild plaques. The right coronary artery is dominant. It has a widely patent stent in its proximal portion. There is known to be Alpine Xience 3.5 x 15 mm stent. There is no significant in-stent restenosis. The mid right coronary artery has approximately 40% stenosis that is unchanged compared to previous studies of 08/19/2017 and 08/15/2012. CONCLUSIONS: 1. Coronary artery disease, mild to moderate. 2. Widely patent stent in the proximal right coronary artery, known to be Alpine Xience 3.5 x 15 mm. 3. Normal left ventricular end-diastolic pressure. 4. Normal global left ventricular systolic function with ejection fraction of approximately 60%. 5. No significant mitral regurgitation. DISCUSSION AND RECOMMENDATIONS: Based on results of the study, it appears appropriate to continue a conservative approach. Risk factor modification has been reviewed. Her current regimen is being continued. Outpatient followup is advised. Job ID: [id number] DocumentID: [id number] Dictated Date: 10/12/2017 17:28:40 Truck Rental Manager Date: 10/12/2017 21:57:17 Dictated By: MAGGIE WATKINS MD, MA, FACP, FACC,
[2017-10-13] VITALS (9 sets, daily range): BP systolic 97–128; BP diastolic 49–64
[2017-10-13] MEDS: LEVOTHYROXINE 88 MCG (LEVOTHORID) TAB PO SCH (05:54)
[2017-10-13] MEDS: PANTOPRAZOLE 40 MG (PROTONIX) TAB PO SCH (05:54)
[2017-10-13] MEDS: lisINopril 5 MG (PRINIVIL) TABLET PO SCH (07:46)
[2017-10-13] MEDS: ACEBUTOLOL 200 MG (SECTRAL) CAPSULE PO SCH (07:46)
[2017-10-13] MEDS: ASPIRIN E.C. 81 MG (ECOTRIN) TAB PO SCH (07:47)
[2017-10-13] MEDS: CLOPIDOGREL 75 MG (PLAVIX) TABLET PO SCH (07:47)
--- NOTE | 2017-10-13 08:30 | Progress Note-Cardiology ---
Cardiology SOAP Progress Note Subjective: Sitting up in a chair at the bedside. No c/o CP, palpitations, syncope, near syncope or dyspnea. No c/o right groin discomfort. Wants to go home. Objective: I&O/Vital Signs 10/12/17 10/13/17 10/13/17 10/13/17 23:00 00:00 00:00 00:35 Temp 97.9 Pulse 68 66 Resp 17 16 B/P (MAP) 93/51 (65) 99/49 (66) Pulse Ox 98 94 94 O2 Delivery Room Air Room Air Room Air 10/13/17 10/13/17 10/13/17 10/13/17 01:00 01:00 02:00 03:00 Pulse 67 67 71 66 Resp 15 17 15 B/P (MAP) 117/56 (76) 97/54 (68) 116/61 (79) Pulse Ox 94 97 99 O2 Delivery Room Air Room Air Room Air 10/13/17 10/13/17 10/13/17 10/13/17 04:00 04:00 04:00 05:00 Temp 97.6 Pulse 78 69 Resp 11 13 B/P (MAP) 114/61 (78) 128/64 (85) Pulse Ox 100 94 96 O2 Delivery Room Air Room Air Room Air 10/13/17 10/13/17 10/13/17 10/13/17 07:00 07:40 07:45 07:55 Temp 98.0 Pulse 83 86 Resp 20 B/P (MAP) 112/64 (80) Pulse Ox 99 99 99 O2 Delivery Room Air Room Air Room Air 10/13/17 00:00 Intake Total 350 ml Output Total 0 ml Balance 350 ml Weight (Pounds): 153 Weight (Ounces): 7.0 Weight (Calculated Kilograms): 69.548236 Side: right Groin site without hematoma: Yes Condition: DP/PT pulses palpable, extremity w/d/p Bruising: mild bruising Constitutional: AAO x 3, well-developed, well-nourished Respiratory: No accessory muscle use, No respiratory distress; chest expansion is symmetric, chest is bilaterally symmetric, lungs clear to auscultation Cardiovascular: regular rate-rhythm; No JVD; S1 and S2 Gastrointestional: No tender; soft, round, audible bowel sounds Extremities: no lower extremity edema bilateral Neurologic/Psychiatric: grossly intact Skin: No rash, No ulcerations Results/Procedures: Labs A/P: Assessment: Chest pain of undetermined etiology MPI of 10-12-47: This study is suggestive of a sptpg-ge-dolpjheu amount of basal inferior ischemia (similar to the MPI of 08/19/17 that led to cath of 08/20/17). Normal regional wall motion and normal global left ventricular systolic function with a calculated ejection fraction of 58% CAD. MPI of 08/19/17 shows mod inferior ischemia with normal LVEF. Card cath of showed 80% prox and ostial RCA stenosis that was successfully stented with Alp Xience 3.5x15 mm stent; mid RCA 40-50% (unchanged compared to a study of 08/15/12), mild L cor plaques. Last card cath of 10/12/17 shows a widely patent prox RCA stent, 40% mid RCA (unchanged) stenosis and mild L cor plaques, LVEDP 11 mmHg, LVEF 60% Echo of 08/19/13 showed LVEF 55-60%, mild MR & TR, PASP 30-35 mmHg Gastroesophageal reflux . History of esophageal stricture dilation by Dr. Lopez in 2000. 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 Maturity onset diabetes mellitus. Hypothyroidism being treated with thyroid replacement therapy. History of chest wall tumor removed in 1998. History of cholecystectomy. History of right total knee replacement several years ago. Plan: * CV status discussed with her and questions answered * Advised f/u with her PCP for investigation of other causes of chest discomfort - she has a h/o esophageal stricture and spasm with dilation in the past * Continue current medication regimen * OK to discharge home today with a 2 week f/u appt Physician Assessment Physician Assessment No cp or palp or syncope or groin discomfort or shortness of breath. Wishes to go home Lungs: clear Cor: reg Ext: no c/c/e. Intact peripheral pulses A&R * As documented in our note above that I updated and as noted below * I have discussed the findings of cath with her and her fam in detail * Continue current regimen * Outpt f/u advised IAIN SANCHEZ DIRECTOR OF SUSTAINABILITY Oct 13, 2017 08:30 MAGGIE WATKINS MD FACP FACC [facility]S Oct 13, 2017 10:04
[2017-10-13] MEDS ORDERED: PIND10TA PO (08:38)
[2017-10-13] MEDS ORDERED: ATOR80TA76 PO (08:38)
[2017-10-13] MEDS ORDERED: ASPI-983 PO (08:38)
--- NOTE | 2017-10-13 08:41 | Discharge Inst-Cardiology ---
Discharge Inst-Cardiac Discharge Medications New Medications: Aspirin (Aspirin EC) 81 Mg Tablet. 81 MG PO DAILY, #90 TAB 5 Refills Atorvastatin Calcium (Atorvastatin Calcium) 80 Mg Tablet 80 MG PO HS, #30 TAB 5 Refills Changed Medications: Pindolol (Pindolol) 10 Mg Tablet 5 MG PO BID, #30 TAB (Changed from: 10 MG; DAILY) Continued Medications: Cholecalciferol (Vitamin D3) (Vitamin D3) 5,000 Unit Capsule 5000 UNIT PO DAILY, CAP Clopidogrel Bisulfate (Plavix) 75 Mg Tablet 75 MG PO DAILY, #90 TAB Cyanocobalamin (Vitamin B-12) (Vitamin B-12) 1,000 Mcg Tablet 1000 MCG PO DAILY, TAB Levothyroxine Sodium (Levothyroxine Sodium) 88 Mcg Tablet 88 MCG PO DAILY, TAB Ranitidine HCl (Ranitidine HCl) 75 Mg Tablet 75 MG PO DAILY, TAB Tramadol HCl (Tramadol HCl) 50 Mg Tablet 50 MG PO Q6H PRN for PAIN-MODERATE, TAB Discontinued Medications: Aspirin (Aspirin EC) 325 Mg Tablet. 325 MG PO DAILY, TAB New, Converted or Re-Newed RX: Transmitted to Pharmacy Patient Instructions Patient Instructions: Please note change to Pindolol dosing, instead of 10mg once a day, change to 10mg 1/2 tablet twice a day. Lab: CMP and Fasting Lipid panel in 4 weeks Please schedule follow up appointment to see Dr. Jackson in 2 weeks IAIN SANCHEZ Oct 13, 2017 08:41
--- NOTE | 2017-10-13 10:07 | Cardiology Discharge Summary ---
Diagnosis/Chief Complaint Date of Admission Oct 10, 2017 at 13:50 Date of Discharge 10/13/17 Final/Discharge Diagnosis Chest pain of undetermined etiology MPI of 48: This study is suggestive of a mzgru-aj-pfdtjrbf amount of basal inferior ischemia (similar to the MPI of 08/19/17 that led to cath of 08/20/17). Normal regional wall motion and normal global left ventricular systolic function with a calculated ejection fraction of 58% CAD. MPI of 08/19/17 shows mod inferior ischemia with normal LVEF. Card cath of showed 80% prox and ostial RCA stenosis that was successfully stented with Alp Xience 3.5x15 mm stent; mid RCA 40-50% (unchanged compared to a study of 08/15/12), mild L cor plaques. Last card cath of 10/12/17 shows a widely patent prox RCA stent, 40% mid RCA (unchanged) stenosis and mild L cor plaques, LVEDP 11 mmHg, LVEF 60% Echo of 08/19/13 showed LVEF 55-60%, mild MR & TR, PASP 30-35 mmHg Gastroesophageal reflux . History of esophageal stricture dilation by Dr. Lopez in 2000. 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 Maturity onset diabetes mellitus. Hypothyroidism being treated with thyroid replacement therapy. History of chest wall tumor removed in 1998. History of cholecystectomy. History of right total knee replacement several years ago. Chief Complaint/HPI Chief Complaint/HPI CC: Chest discomfort Ms. Hu is a 77 year old female admitted to ICU 5 from the ED with c/o chest discomfort. She reports last night she was watching television at home when she had a sudden onset or right sided discomfort which started under her right breast and radiated up her chest, into her neck and shoulder. She describes it as a deep pain which she rates a 10 on a 1-10 pain scale. She reports feeling diaphoretic at the time. She states the discomfort almost doubled her over. She reports after approx 10-15 minutes it eased up, but did not completely resolved. She reports after 30-45 min she had called her daughter and came to the ED. Pain had eased up, but not resolved by the. Nitro helped some and it eventually resolved on its own. Total duration about 2 hours She reports she had an episode early this morning where she felt the pain may be returning, but it subsided after a few minutes. She denies any other assoc symptoms. No c/o SOB, palpitations, syncope or near syncope. No c/o LE edema. She reports she took a few TUMS, but this did not help the pain at all. She reports no pain at the time of this interview. Her daughter is at the bedside. Please refer to the progress note of today's date for condition at d/c Discharge Summary Procedures None. Discussion & Recommendations Home Medications Reviewed patient Home Medication Reconciliation performed by pharmacy medication reconciliations application support technician and/or nursing. Patients Allergies have been reviewed. Discharge Home Medications: Reviewed and agree with Discharge Medication list on patient's Discharge Instruction sheet Clinical Quality Measures DVT/VTE Risk/Contraindication: Risk Factor Score Per Nursin RFS Level Per Nursing on Admit: 2=Moderate MAGGIE WATKINS MD FACP FAC CCDS Oct 13, 2017 10:07
[2017-10-13] MEDS: NS IV 1000 ML 1,000 ML IV SCH (10:23)
== END 2017-10-13 12:25 | disposition home or self-care (01) ==
LOC: EDUNIT# 11:49 → ER 11:50 → ICU 13:15 → UNDOADMOB 13:15 → ICU 13:50 → UNDOADMOB 13:50 → CATH 13:50 → ICU 13:50 → CATH 10-13 12:25 → UNDODISOB 10-13 12:25
PROVIDERS: ATTEND Internal Medicine Cardiovascular Disease
DX: R07.89 Other chest pain (principal); I25.10 Atherosclerotic heart disease of native coronary artery without angina pectoris; I97.630 Postprocedural hematoma of a circulatory system organ or structure following a cardiac catheterization; D64.9 Anemia, unspecified; K21.9 Gastro-esophageal reflux disease without esophagitis; E11.9 Type 2 diabetes mellitus without complications; E03.9 Hypothyroidism, unspecified; Z79.82 Long term (current) use of aspirin; Z95.5 Presence of coronary angioplasty implant and graft; Z85.3 Personal history of malignant neoplasm of breast; Z90.11 Acquired absence of right breast and nipple; Z92.3 Personal history of irradiation; Z92.21 Personal history of antineoplastic chemotherapy
CPT/HCPCS: 36415; 71045; 78452; 80048; 80053; 80061; 83690; 83735; 83874; 83880; 84484; 85025; 85027; 85610; 85730; 93005; 93017; 93041; 93458; 93567

== ENCOUNTER → 2019-07-27 | Outpatient (CLI) | payer MEDICARE ==
[~2019-07-27] MED LIST changes: +ASPI-983 PO; +ATOR20TA66; +ATOR80TA76 PO; +CYAN-41 PO; -CYAN10006 PO; +RANI-603 PO; +RANI-613 PO; +TRM50T PO
== END ==
LOC: CARD 11:47
PROVIDERS: ATTEND Nurse Practitioner Family
DX: I08.0 Rheumatic disorders of both mitral and aortic valves (principal); I20.8 Other forms of angina pectoris; I25.10 Atherosclerotic heart disease of native coronary artery without angina pectoris; I65.29 Occlusion and stenosis of unspecified carotid artery; E78.5 Hyperlipidemia, unspecified; I10 Essential (primary) hypertension
CPT/HCPCS: 93306

== ENCOUNTER → 2019-11-06 | Outpatient (CLI) | payer MEDICARE ==
[~2019-11-06] MED LIST changes: +ASPI-1238 PO; -ASPI-983 PO
--- NOTE | 2019-11-06 10:09 | Diagnostic Imaging Report ---
PROCEDURE: CT abdomen and pelvis without contrast. TECHNIQUE: Multiple contiguous axial images were obtained through the abdomen and pelvis without the use of intravenous contrast. Auto Exposure Controls were utilized during the CT exam to meet ALARA standards for radiation dose reduction. INDICATION: Diarrhea, chills, left kidney pain, evaluate pelvic mesh. FINDINGS: The previous CT chest, abdomen and pelvis exam of 10/05/2013 noted postsurgical changes consistent with a right mastectomy and minimal scarring in the right lung base. There is also diverticulosis of the sigmoid and descending colon but there is no sign of acute diverticulitis. A 5.2 cm cyst was also seen within the liver. On this exam, the suspected hepatic cyst noted on the prior exam is no longer evident. The liver itself does not appear to be enlarged and the biliary tree is not abnormally distended. As seen on the prior exam, the gallbladder is surgically absent. The spleen, pancreas, adrenals, kidneys, aorta and inferior vena cava are unremarkable for an acute abnormality. The left kidney is smaller than the right kidney. The right kidney measures approximately 8.7 cm in length while the left kidney is estimated to be 6.3 cm. The reason for the discrepancy between the kidney sizes is not certain. There does not appear to be any hemodynamically significant stenosis of the left renal artery although the evaluation of left renal artery is limited due to the absence of intravenous contrast. The stomach is not well-distended and difficult to assess. There is atherosclerotic disease involving the aorta, but there is no sign of an aneurysm. There is diverticulosis of the sigmoid and descending colon. There is no evidence for acute diverticulitis, however. The uterus does not appear to be enlarged. The urinary bladder is grossly unremarkable. The appendix was not particularly well visualized but there are no indirect signs of acute appendicitis. There is no pelvic mass or free fluid collection evident. There is no radiopaque wire mesh visualized in the pelvis. There is no herniation of bowel into either inguinal canal, however. The bone windows show no sign of a fracture or for destructive lesion. The lung bases are clear. 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 IMPRESSION: 1. There is no acute abnormality of the abdomen or pelvis. 2. The 5 cm cyst within the liver seen previously is no longer evident. 3. The right kidney does measure larger than the left kidney. The reason for this discrepancy is not certain. If there is clinical concern regarding renal artery stenosis on the left, then either CT of aorta or renal Doppler exam would be recommended. 4. There is no radiopaque wire mesh visualized within the pelvis. There does not appear to be herniation of bowel into inguinal canals. 5. There is diverticulosis of the sigmoid and descending colon without evidence for acute diverticulitis. Dictated by: Dictated on workstation # [id number]
== END ==
LOC: RAD 09:04
PROVIDERS: ATTEND Nurse Practitioner Family
DX: K57.30 Diverticulosis of large intestine without perforation or abscess without bleeding (principal); I12.9 Hypertensive chronic kidney disease with stage 1 through stage 4 chronic kidney disease, or unspecified chronic kidney disease; N20.2 Calculus of kidney with calculus of ureter; N30.01 Acute cystitis with hematuria; N18.3 Chronic kidney disease, stage 3 (moderate); N23 Unspecified renal colic; T83.719A Erosion of other prosthetic materials to surrounding organ or tissue, initial encounter; R13.10 Dysphagia, unspecified; R68.83 Chills (without fever); Z98.890 Other specified postprocedural states; Z90.49 Acquired absence of other specified parts of digestive tract
CPT/HCPCS: 74176

== ENCOUNTER → 2019-11-09 | Outpatient (CLI) | payer MEDICARE ==
--- NOTE | 2019-11-09 12:03 | Diagnostic Imaging Report ---
INDICATION: Left knee pain for 5 months. TIME OF EXAM: 10:58 AM 3 views of the left knee were obtained. There are significant medial compartmental degenerative changes with joint space narrowing and marginal spurring. There is moderate patellofemoral degenerative change as well. No fracture, dislocation or effusion is identified. IMPRESSION: Medial and patellofemoral compartmental degenerative change. No acute bony abnormality is detected. Dictated by: Dictated on workstation # [id number]
== END ==
LOC: RAD 10:33
PROVIDERS: ATTEND Nurse Practitioner Family
DX: M17.12 Unilateral primary osteoarthritis, left knee (principal)
CPT/HCPCS: 73562

== ENCOUNTER 2019-11-21 05:28 | Outpatient (RCR) | payer MEDICARE ==
[~2019-11-21] VITALS: Ht 168 cm; Wt 70.5 kg
[~2019-11-21 05:28] MED LIST changes: +ASPI-999 PO; +CHOL500044 PO; +DICL75TA2 PO; +ESOM20CA58 PO
== END 2019-11-21 10:42 | disposition home or self-care (01) ==
LOC: PREOP 05:28
PROVIDERS: ATTEND Internal Medicine
DX: Z01.812 Encounter for preprocedural laboratory examination (principal); K62.5 Hemorrhage of anus and rectum; R10.32 Left lower quadrant pain; Z20.828 Contact with and (suspected) exposure to other viral communicable diseases
CPT/HCPCS: 87635

== ENCOUNTER 2019-11-23 07:40 | Day surgery (SDC) | payer MEDICARE ==
--- NOTE | 2019-11-16 20:31 | HISTORY AND PHYSICAL ---
DATE OF SERVICE: HISTORY OF PRESENT ILLNESS: The patient is a 79-year-old white female referred by Dr. Disla for diagnostic colonoscopy due to history of intermittent bleeding with bowel habit change as well as a strong family history for colon cancer. She reports that her last colonoscopy was done by a physician who has not been here for at least 8 years, she believes was probably about 10 years ago and she had one polyp removed. Previous colonoscopy prior to that was 15 or 20 years ago and she also had 1 or 2 polyps were removed. She reports a weight gain over the past six months. She has had intermittent bright red blood per rectum for over a year that she has attributed to hemorrhoids. She had an episode 2 weeks ago where she had some diarrhea with mucus and a lot of abdominal cramping. She was concerned that it could be related to previous vaginal sling for which there had been reportedly some mesh migration, it did require surgery roughly 6 years ago. She states that she was diagnosed with ulcerative colitis by Dr. Kay in 1974. Symptoms were short lived. She did not require long-term medication and reports that there was no mention of any evidence for colitis either on her last two colonoscopies. PAST MEDICAL HISTORY: Significant for coronary artery disease. She had single vessel disease and had ostial right RCA stent placement in 08/2017. She has been on dual antiplatelet therapy since. She reports that she mows her yard with an electric lawnmower and walks at least a half a mile most days of the week with no anginal symptoms. She has a past history of right-sided breast cancer. She underwent mastectomy as well as radiation therapy greater than 5 years ago. She, since that time, had some dysphagia and was noted to have esophageal stricturing and on several occasions has required esophageal dilatation. She since being on Nexium has not required dilatation for the past several years and denies dysphagia or odynophagia. PAST SURGICAL HISTORY: Other than mastectomy and vaginal mass surgery, she has had cholecystectomy and has had multiple skin cancers removed predominantly basal and squamous cell with no reported melanoma. She also has a history of hypertension and is on thyroid replacements post-thyroidectomy for benign multinodular goiter. FAMILY HISTORY: Pertinent for colon cancer in a grandmother diagnosed at the age of 72, had one first cousin diagnosed with colon cancer at the age of 40 and an uncle, she believe diagnosed in his 60s. Mother had kidney cancer, which did result in her in her 60s due to widespread metastasis. REVIEW OF SYSTEMS: CONSTITUTIONAL: The patient denies night sweats, chills or fever. Reports she has gained about 10 pounds over the past six months. CARDIOVASCULAR: She denies angina, orthopnea, PND, pedal edema or dyspnea with a regular activity. PULMONARY: She denies cough, chest pain, wheezing or shortness of breath. GASTROINTESTINAL: As noted in the HPI. SOCIAL HISTORY: She reports no past smoking or drinking history, is retired. PHYSICAL EXAMINATION: GENERAL: Reveals a somewhat anxious white female appeared to be in no acute distress. HEENT: Revealed a Mallampati 2 oropharyngeal configuration. CHEST: Clear. CARDIOVASCULAR: Revealed a regular rate and rhythm with no significant murmur, S3 or S4. ABDOMEN: Soft, supple. She has some mild left lower quadrant abdominal pain and left upper quadrant abdominal pain to palpation with some fullness in the left lower quadrant. No discrete mass was palpated. Bowel sounds are positive. There is no evidence for distention and no evidence for organomegaly. EXTREMITIES: Reveal no cyanosis, clubbing or edema. In addition, the fullness was not pulsatile. ASSESSMENT AND PLAN: The patient is being set up for diagnostic colonoscopy due to rectal bleeding with left lower and left upper quadrant abdominal pain to palpation. The patient has symptoms suggestive of irritable bowel syndrome. Considering this and significant anxiety, we will plan on Diprivan based anesthesia. It has been a little over 2 years since the patient's last stent placement. She is physically active with no anginal symptoms. We will hold aspirin and Plavix one week prior to colonoscopy. I thank you for the referral of this pleasant lady. Job ID: [id number] DocumentID: [id number] Dictated Date: 11/14/2019 15:00:04 Printer Technician Date: 11/14/2019 15:22:23 Dictated By: HAYDE PICKARD MD MTDD
[2019-11-23] VITALS (10 sets, daily range): BP systolic 132–153; BP diastolic 60–77
[~2019-11-23] VITALS: Ht 168 cm; Wt 70.5 kg
[2019-11-23] MEDS ORDERED: LACTATED RINGERS 1,000 ML IV ONE (08:04)
[2019-11-23] MEDS ORDERED: HURRICAINE EXT TUBE (BENZOCAINE) XX PRN (08:15)
[2019-11-23] MEDS ORDERED: LIDOCAINE JELLY 2% 6 ML SYRINGE MM PRN (08:15)
[2019-11-23] MEDS ORDERED: LACTATED RINGERS 1,000 ML IV PRN (08:15)
--- NOTE | 2019-11-23 08:20 | Pre-Op Note & Conscious Sedat ---
Pre-Operative Progress Note H&P Reviewed The H&P was reviewed, patient examined and no changes noted. Date H&P Reviewed: Nov 23, 2019 Time H&P Reviewed: 08:20 Conscious Sedation Pre-Proced ASA Score 3 For ASA 3 and 4: Consider anesthesia and medical clearance. Also, for patients with a history of failed moderate sedation consider anesthesia. Airway Lungs Heart ASA score ASA 1: a normal healthy patient ASA 2: a patient with a mild systemic disease (mid diabetes, controlled hypertension, obesity ASA 3: a patient with a severe systemic disease that limits activity (angina, COPD, prior Myocardial infarction) ASA 4: a patient with an incapacitating disease that is a constant threat to life (CHF, renal failure) ASA 5: a moribund patient not expected to survive 24 hrs. (ruptured aneurysm) ASA 6: a declared brain- patient whose organs are being harvested. For emergent operations, add the letter E after the classification Mallampati Classification Grade 2 Sedation Plan Analgesia, Amnesia, Plan communicated to team members, Discussed options with patient/fam, Discussed risks with patient/fam The patient is an appropriate candidate to undergo the planned procedure, sedation, and anesthesia. The patient immediately re-assessed prior to indication. HAYDE PICKARD MD Nov 23, 2019 08:20
[2019-11-23] MEDS ORDERED: MIDAZOLAM 2 MG/2 ML (VERSED) VIAL ONE (08:33)
[2019-11-23] MEDS ORDERED: PROPOFOL INJECTION 50 ML IV ONE (08:33)
[2019-11-23] MEDS ORDERED: HURRICAINE EXT TUBE (BENZOCAINE) ONE (08:55)
[2019-11-23] MEDS ORDERED: LIDOCAINE JELLY 2% 6 ML SYRINGE ONE (08:55)
--- NOTE | 2019-11-23 09:41 | Anesthesia-General Post-Op ---
MAC Patient Condition Mental Status/LOC: Same as Preop Cardiovascular: Satisfactory Nausea/Vomiting: Absent Respiratory: Satisfactory Pain: Controlled Complications: Absent Post Op Complications Complications None Follow Up Care/Instructions Patient Instructions None needed. Anesthesiology Discharge Order Discharge Order Patient is doing well, no complaints, stable vital signs, no apparent adverse anesthesia problems. No complications reported per nursing. SYED HERNANDEZ CRNA Nov 23, 2019 09:41
--- NOTE | 2019-11-23 19:02 | OPERATIVE REPORT ---
DATE OF SERVICE: PANENDOSCOPY SUMMARY Panendoscopy is performed for evaluation of left lower quadrant abdominal pain, rectal bleeding and dysphagia. DESCRIPTION OF PROCEDURE: The patient was placed in the left lateral decubitus position. Prior to undergoing colonoscopy, digital rectal evaluation was performed. Anal sphincter tone was normal and the perianal reflexes intact. There was no evidence for internal or external hemorrhoids to digital inspection. No abnormalities were noted on digital inspection of anal canal or distal rectal vault. The colonoscope was then inserted into the rectum and under direct visualization advanced to cecum. The cecum was identified by identification of ileocecal valve and cecal strap and appendiceal orifice. Quality of prep was fair. The procedure was under Diprivan based anesthesia. FINDINGS: There was no evidence for internal or external hemorrhoids. There were a few telangiectatic blood vessels in the anal canal, likely source of this patient's small volume rectal bleeding. The rectum was unremarkable. A moderate number of small to medium size diverticulum were noted in the sigmoid colon and several in the transverse colon. No evidence for diverticulitis was noted. No other sigmoid colonic abnormalities were appreciated. The descending colon was unremarkable other than several small diverticulum. The transverse colon was unremarkable. The hepatic flexure, ascending colon and cecum were normal. ASSESSMENT: Moderate diverticular disease predominantly in the sigmoid colon where several small diverticulum being noted and in the transverse colon were present without evidence for diverticulitis. There were a few small telangiectatic blood vessels in the anal canal, but no evidence for hemorrhoids. This is the most likely source of this patient's small volume rectal bleeding. Considering dual antiplatelet therapy, medical comorbidities and age, we would not recommend future screening colonoscopy. We then proceeded with EGD evaluation. The upper endoscope was inserted in the oral cavity and under direct visualization, esophagus was intubated. Endoscope was passed down the esophagus, stomach and second portion of the duodenum. Careful inspection was made as the endoscope withdrawn. The patient tolerated the procedure well under Diprivan based anesthesia. FINDINGS: The posterior pharynx, epiglottis, arytenoid aperture, true and false vocal folds were unremarkable to visual inspection. The proximal and mid esophagus were unremarkable. There was some benign appearing stricturing without evidence for ulceration involving the distal esophagus that was proximally placed at 34 cm from the incisoral orifice secondary to approximate 3 cm hiatal hernia. I was able with only minimal increase in pressure to pass the scope into the stomach. Balloon dilatation was not performed due to the fact that the patient had refused to stop dual antiplatelet therapy. I did, however, using the scope alone with no bleeding, increase the opening to 2 cm. Biopsies were not performed again due to dual antiplatelet therapy. The cardia, fundus, antrum, pylorus, pyloric channel and duodenal bulb as well as second portion of duodenum were unremarkable with no evidence for ulceration, gastritis or duodenitis. ASSESSMENT: Small to moderate size roughly 3 cm hiatal hernia was present with some benign stricturing of the distal esophagus dilated with the scope. Biopsies and balloon dilatation were not performed due to the patient's refusal to stop dual antiplatelet therapy. She admits to eating too fast. We discussed strategies for more thorough mastication and slowing eating time down drinking a glass of water with each meal. Discussed that she would need to stop dual antiplatelet therapy and would be at very low risk for holding aspirin and Plavix of having an acute coronary syndrome or stroke should she develop progressive dysphagia which is likely at some point in the future. We would then recommend bringing her back for balloon dilatation. For now she was told to continue indefinate PPI therapy. I thank you for the referral of this pleasant lady, reassured by today's findings. Job ID: [id number] DocumentID: [id number] Dictated Date: 11/23/2019 10:27:16 Social Sciences Instructor Date: 11/23/2019 19:01:21 Dictated By: HAYDE PICKARD MD [facility]
== END 2019-11-23 10:47 | disposition home or self-care (01) ==
LOC: ENDO 07:40
PROVIDERS: ATTEND Internal Medicine
DX: K57.30 Diverticulosis of large intestine without perforation or abscess without bleeding (principal); I78.1 Nevus, non-neoplastic; K44.9 Diaphragmatic hernia without obstruction or gangrene; K22.2 Esophageal obstruction; I10 Essential (primary) hypertension; E89.0 Postprocedural hypothyroidism; F41.9 Anxiety disorder, unspecified; I25.10 Atherosclerotic heart disease of native coronary artery without angina pectoris; I08.0 Rheumatic disorders of both mitral and aortic valves; M06.9 Rheumatoid arthritis, unspecified; Z86.010 Personal history of colon polyps; Z95.5 Presence of coronary angioplasty implant and graft; Z85.3 Personal history of malignant neoplasm of breast; Z90.10 Acquired absence of unspecified breast and nipple; Z92.3 Personal history of irradiation; Z85.828 Personal history of other malignant neoplasm of skin; Z79.02 Long term (current) use of antithrombotics/antiplatelets; Z79.899 Other long term (current) drug therapy; Z79.82 Long term (current) use of aspirin; Z79.890 Hormone replacement therapy; Z87.19 Personal history of other diseases of the digestive system; Z88.2 Allergy status to sulfonamides; Z88.1 Allergy status to other antibiotic agents; Z80.0 Family history of malignant neoplasm of digestive organs

== ENCOUNTER → 2020-04-04 | Outpatient (CLI) | payer MEDICARE ==
--- NOTE | 2020-04-04 12:28 | Diagnostic Imaging Report ---
CLINICAL INDICATION: Patient cervical, thoracic, and lumbar pain. EXAM: X-ray of the lumbar spine, 3 views. COMPARISON: None. FINDINGS: There is no acute lumbar spine fracture. There is grade 1 anterolisthesis of L4 on L5. There is no pars defect. There is facet arthropathy/sclerosis involving the lower lumbar spine. There is mild hypertrophic spurs seen throughout the lumbar spine. There is moderate loss of disc space height seen at the L3-L4, L4-L5, and L5-S1 levels. There is btex-rg-[id number] loss of disc space height at the L1-L2 and L2-L3 levels. There is mild sclerosis of sacroiliac joint regions and symphysis pubis region. Surgical clips are seen overlying the right upper quadrant which could be related to cholecystectomy changes. IMPRESSION: 1: There is lumbar spine degenerative disease with no acute fracture. 2: There is degenerative grade 1 anterolisthesis of L4 on L5. Dictated by: Dictated on workstation # [id number]
--- NOTE | 2020-04-04 12:43 | Diagnostic Imaging Report ---
CLINICAL INDICATION: Patient with cervical, thoracic, and lumbar pain. EXAM: X-ray of the cervical spine, 3 views. COMPARISON: X-ray cervical spine dated 07/10/2014. FINDINGS: There is no acute cervical spine fracture. Again seen straightening of the cervical spine posture. There are vertebral body spurs throughout cervical spine most pronounced at the C5-C7 levels. There is severe loss of disc space height at C5-C6 level and moderate loss at C6-C7 level. There is facet arthropathy. Stable grade 1 anterolisthesis of C3 on C4. There is no prevertebral soft tissue swelling. There are surgical clips overlying the neck soft tissue region again noted. Air-filled distal cervical esophagus is seen. Odontoid view show no significant abnormality. IMPRESSION: 1: There is no significant change to the cervical spine degenerative disc disease. Dictated by: Dictated on workstation # [id number]
--- NOTE | 2020-04-04 16:17 | Diagnostic Imaging Report ---
INDICATION: Pain. Two views of the thoracic spine were obtained. FINDINGS: The alignment is normal. Vertebral body heights are well-maintained. There are mild degenerative changes. There is no fracture or traumatic subluxation. Visualized lungs are clear. IMPRESSION: Mild thoracic spondylosis, otherwise unremarkable. Dictated by: Dictated on workstation # [id number]
== END ==
LOC: RAD 10:05
PROVIDERS: ATTEND Nurse Practitioner Family
DX: M47.812 Spondylosis without myelopathy or radiculopathy, cervical region (principal); M47.814 Spondylosis without myelopathy or radiculopathy, thoracic region; M47.816 Spondylosis without myelopathy or radiculopathy, lumbar region; M43.16 Spondylolisthesis, lumbar region
CPT/HCPCS: 72040; 72072; 72100

== ENCOUNTER 2020-12-15 11:32 | Emergency (ER) | payer MEDICARE ==
[~2020-12-15] VITALS: Ht 170.2 cm; Wt 69.4 kg
[2020-12-15] MEDS ORDERED: ASPIRIN 81 MG CHEW (CHILDREN'S ASA) PO ONE (11:45)
[2020-12-15 11:50] LABS: BASOPHILS # (AUTO) 0.1 10^3/uL (0.0-0.1); BASOPHILS % (AUTO) 1 % (0-10); EOSINOPHILS # (AUTO) 0.2 10^3/uL (0.0-0.3); EOSINOPHILS % (AUTO) 3 % (0-10); HEMATOCRIT 38 % (35-52); HEMOGLOBIN 12.3 g/dL (11.5-16.0); LYMPHOCYTES # (AUTO) 2.2 10^3/uL (1.0-4.0); LYMPHOCYTES % (AUTO) 35 % (12-44); MEAN CORPUSCULAR HEMOGLOBIN 31 pg (25-34); MEAN CORPUSCULAR HGB CONC 33 g/dL (32-36); MEAN CORPUSCULAR VOLUME 95 fL (80-99); MEAN PLATELET VOLUME 9.8 fL (9.0-12.2); MONOCYTES # (AUTO) 0.8 10^3/uL (0.0-1.0); MONOCYTES % (AUTO) 14 % (0-12); NEUTROPHILS # (AUTO) 2.8 10^3/uL (1.8-7.8); NEUTROPHILS % (AUTO) 47 % (42-75); PLATELET COUNT 241 10^3/uL (130-400); WHITE BLOOD COUNT 6.1 10^3/uL (4.3-11.0)
--- NOTE | 2020-12-15 11:58 | ED Chest Pain ---
General Chief Complaint: Chest Pain Stated Complaint: CP Source: patient Exam Limitations: no limitations History of Present Illness Date Seen by Provider: Dec 15, 2020 Time Seen by Provider: 11:55 Initial Comments To ER with c/o chest pain. This was central chest, right sided and radiated to her right arm. This felt different than her usual chest pain. This began while at rest at 11 AM and resolved after 7 minutes when she took a nitroglycerin. She has a history of one coronary stent that was shown to be patent in 2018 with otherwise mild to moderate coronary disease. She has been compliant with aspirin and Plavix use. No recent activity intolerance or fatigue. She did have some diaphoresis with this episode today. She also reports some head pressure last night and headaches intermittently. Timing/Duration: changing over time Severity/Quality: moderate Location: central Radiation: no radiation Activities at Onset: none Prior CP/Workup: no prior chest pain Modifying Factors: improves with nitroglycerin ASA po ELECTRICIAN REFINERY: No NTG SL ELECTRICIAN REFINERY: No Allergies and Home Medications Allergies Coded Allergies: Sulfa (Sulfonamide Antibiotics) (Unverified Allergy, Unknown, 08/15/12) erythromycin base (Unverified Allergy, Unknown, 09/02/16) Uncoded Allergies: CORTISOL (Adverse Reaction, Unknown, 08/18/17) PT STATES CAUSES PSYCHOSIS Patient Home Medication List Home Medication List Reviewed: Yes Aspirin (Aspirin) 81 Mg Tab.chew, 81 MG PO DAILY, (Reported) Entered as Reported by: AUBREY TAMAYO on 11/20/19 112 Cholecalciferol (Vitamin D3) (Vitamin D3) 125 Mcg Tablet, 125 MCG PO DAILY, (Reported) Entered as Reported by: AUBREY TAMAYO on 11/20/19 1122 Clopidogrel Bisulfate (Plavix) 75 Mg Tablet, 75 MG PO DAILY, (Reported) Entered as Reported by: AUBREY TAMAYO on 11/20/19 112 Cyanocobalamin (Vitamin B-12) (Vitamin B-12) 1,000 Mcg Tablet, 1,000 MCG PO DAILY, (Reported) Entered as Reported by: CHRISTOPH DOMINIQUE on 08/18/17 1654 Diclofenac Sodium (Diclofenac Sodium) 75 Mg Tablet.dr, 75 MG PO BID, (Reported) Entered as Reported by: AUBREY TAMAYO on 11/20/19 112 Esomeprazole Magnesium (Nexium 24Hr) 20 Mg Capsule.dr, 20 MG PO DAILY, (Reported) Entered as Reported by: AUBREY TAMAYO on 11/20/19 1122 Levothyroxine Sodium (Levothyroxine Sodium) 88 Mcg Tablet, 88 MCG PO DAILY, (Reported) Entered as Reported by: CHRISTOPH DOMINIQUE on 08/18/17 1603 Pindolol (Pindolol) 10 Mg Tablet, 10 MG PO BID, (Reported) Entered as Reported by: AUBREY TAMAYO on 11/20/19 1122 Review of Systems Review of Systems Constitutional: see HPI EENTM: No Symptoms Reported Respiratory: No Symptoms Reported Cardiovascular: See HPI, Chest Pain Gastrointestinal: No Symptoms Reported Genitourinary: No Symptoms Reported Musculoskeletal: no symptoms reported Skin: no symptoms reported Psychiatric/Neurological: No Symptoms Reported Endocrine: No Symptoms Reported Past Eaonaqk-Kdlvjv-Gspbcr Hx Patient Social History Tobacco Use?: No Use of E-Cig and/or Vaping dev: No Substance use?: No Alcohol Use?: No Immunizations Up To Date Tetanus Booster (TDap): More than 5yrs First/Initial COVID19 Vaccinat: 2020 Second COVID19 Vaccination Huy: 2020 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: [employer] Seasonal Allergies Seasonal Allergies: Yes Past Medical History Surgery/Hospitalization HX: SX: RIGHT SIDED MASECTOMY, THYROIDECTOMY, GALLBLADDER, RIGHT TOTAL KNEE REPLACEMENT, T&A, CARDIAC STENT PMH: BREAST CANCER Surgeries: Yes (rectocele/cystocele repair w/ attempted mesh removaL) Adenoidectomy, Breast, Coronary Stent, Gallbladder, Joint Replacement, Orthopedic, Thyroidectomy, Tonsillectomy Respiratory: Yes (r lung fibrosis, PNEUMOTHORAX, 11 spots on lungs) Pneumonia Currently Using CPAP: No Currently Using BIPAP: No Cardiac: Yes (mitral, aortic valve regurg, 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; weak left ventricle) Coronary Artery Disease Neurological: No Genitourinary: Yes UTI-Chronic Gastrointestinal: Yes (ulcerative colitis, rectal bleeding) Colitis, Gastroesophageal Reflux, Pancreatitis, Irritable Bowel Musculoskeletal: Yes Arthritis Endocrine: Yes (Thyroidectomy) Hypothyroidsim HEENT: Yes (cataract repair) Cataract Loss of Vision: Denies Hearing Impairment: Denies Cancer: Yes (Right breast and lymph involvment) Breast What Type of Treatment Did You: Chemotherapy, Radiation, Surgical Intervention Psychosocial: Yes Anxiety Integumentary: Yes (moles) Blood Disorders: No Adverse Reaction/Blood Tranf: No Family Medical History Patient reports no known family medical history. No Pertinent Family Hx Physical Exam Vital Signs Vital Signs - First Documented 12/15/20 11:35 Temp 36.6 Pulse 73 Resp 20 B/P (MAP) 149/71 (97) Pulse Ox 98 O2 Delivery Room Air Capillary Refill : Less Than 3 Seconds Height, Weight, BMI Height: 5'6.00" Weight: 153lbs. 7.0oz. 69.060417nv; 24.97 BMI Method:Stated General Appearance: No Apparent Distress, WD/WN Respiratory: Normal Breath Sounds, No Accessory Muscle Use, No Respiratory Distress Cardiovascular: Regular Rate, Rhythm, Normal Peripheral Pulses Gastrointestinal: Normal Bowel Sounds, Non Tender, Soft Extremity: Normal Capillary Refill, Normal Inspection Neurologic/Psychiatric: Alert, Oriented x3 Skin: Normal Color, Warm/Dry Progress/Results/Core Measures Results/Orders Lab Results Laboratory Tests Test 12/15/20 11:41 12/15/20 13:39 Range/Units White Blood Count 6.1 4.3-11.0 10^3/uL Red Blood Count 3.94 3.80-5.11 10^6/uL Hemoglobin 12.3 11.5-16.0 g/dL Hematocrit 38 35-52 % Mean Corpuscular Volume 95 80-99 fL Mean Corpuscular Hemoglobin 31 25-34 pg Mean Corpuscular Hemoglobin Concent 33 32-36 g/dL Red Cell Distribution Width 13.4 10.0-14.5 % Platelet Count 241 130-400 10^3/uL Mean Platelet Volume 9.8 9.0-12.2 fL Immature Granulocyte % (Auto) 0 % Neutrophils (%) (Auto) 47 42-75 % Lymphocytes (%) (Auto) 35 12-44 % Monocytes (%) (Auto) 14 H 0-12 % Eosinophils (%) (Auto) 3 0-10 % Basophils (%) (Auto) 1 0-10 % Neutrophils # (Auto) 2.8 1.8-7.8 10^3/uL Lymphocytes # (Auto) 2.2 1.0-4.0 10^3/uL Monocytes # (Auto) 0.8 0.0-1.0 10^3/uL Eosinophils # (Auto) 0.2 0.0-0.3 10^3/uL Basophils # (Auto) 0.1 0.0-0.1 10^3/uL Immature Granulocyte # (Auto) 0.0 0.0-0.1 10^3/uL Prothrombin Time 13.3 12.2-14.7 SEC INR Comment 1.0 0.8-1.4 Activated Partial Thromboplast Time 31 24-35 SEC Sodium Level 139 135-145 MMOL/L Potassium Level 4.7 3.6-5.0 MMOL/L Chloride Level 107 98-107 MMOL/L Carbon Dioxide Level 22 21-32 MMOL/L Anion Gap 10 5-14 MMOL/L Blood Urea Nitrogen 17 7-18 MG/DL Creatinine 1.01 0.60-1.30 MG/DL Estimat Glomerular Filtration Rate 53 BUN/Creatinine Ratio 17 Glucose Level 91 70-105 MG/DL Calcium Level 9.1 8.5-10.1 MG/DL Corrected Calcium 9.3 8.5-10.1 MG/DL Magnesium Level 2.2 1.6-2.4 MG/DL Total Bilirubin 0.7 0.1-1.0 MG/DL Aspartate Amino Transf (AST/SGOT) 33 5-34 U/L Alanine Aminotransferase (ALT/SGPT) 18 0-55 U/L Alkaline Phosphatase 43 40-136 U/L Myoglobin 160.5 H 10.0-92.0 NG/ML Troponin I < 0.028 < 0.028 <0.028 NG/ML B-Type Natriuretic Peptide 90.2 <100.0 PG/ML Total Protein 6.8 6.4-8.2 GM/DL Albumin 3.8 3.2-4.5 GM/DL My Orders Orders - DOMINGUEZ JAMES APRN Cbc With Automated Diff (12/15/20 11:40) Magnesium (12/15/20 11:40) Chest 1 View, Ap/Pa Only (12/15/20 11:40) Ekg Tracing (12/15/20 11:40) Comprehensive Metabolic Panel (12/15/20 11:40) Myoglobin Serum (12/15/20 11:40) Protime With Inr (12/15/20 11:40) Partial Thromboplastin Time (12/15/20 11:40) O2 (12/15/20 11:40) Monitor-Rhythm Ecg Trace Only (12/15/20 11:40) Lipid Panel (12/16/20 06:00) Ed Iv/Invasive Line Start (12/15/20 11:40) BNP (12/15/20 11:40) Troponin I (12/15/20 11:40) Aspirin Chewable Tablet (Baby Aspirin Ch (12/15/20 11:45) Ct Head Wo (12/15/20 11:53) Troponin I (12/15/20 13:23) Medications Given in ED Current Medications Medications Dose Ordered Sig/Kendall Route Start Time Stop Time Status Last Admin Dose Admin Aspirin 324 mg ONCE ONCE PO 12/15/20 11:45 12/15/20 11:46 DC 12/15/20 11:58 324 MG Vital Signs/I&O 12/15/20 11:35 Temp 36.6 Pulse 73 Resp 20 B/P (MAP) 149/71 (97) Pulse Ox 98 O2 Delivery Room Air Departure Communication (Admissions) Family Conversation EKG shows no ST segment changes rate 66 normal intervals no ectopy 1422-remains alert oriented very pleasant and asymptomatic during entire ER stay. We will discharged home. Patient is concerned about her near syncopal event last night though she did not lose consciousness. She is worried that she may have a left bundle branch block as her mother did and she believes she may have had bradycardia. She has not had any bradycardia here nor does she have any bundle branch block on EKG. I will refer her to Dr. Laws with whom she is already established for further work-up. NAME: JESS [facility]ENTES [facility] REC#: [id number] PT STATUS: REG ER : 1940 PHYSICIAN: DOMINGUEZ JAMES APRN ADMIT DATE: 12/15/20/ER Draft Date of Exam:12/15/20 CHEST 1 VIEW, AP/PA ONLY EXAMINATION: Chest, 1 view. HISTORY: Chest pain. COMPARISON: 10/10/2017. FINDINGS: There is elevation of the right hemidiaphragm. No focal consolidation is seen. Artifact is seen overlying the right lower lobe. No large pleural effusion or pneumothorax is seen. The cardiomediastinal silhouette is normal in size and contour. No acute osseous abnormality is seen. IMPRESSION: 1. No acute pleuroparenchymal process. 2. Elevated right hemidiaphragm which appears new compared to the prior exam. 3. Artifact overlying the right lower lobe. This is likely secondary to clothing. Dictated on workstation # [id number] Dict: 12/15/20 1203 Trans: 12/15/20 [id number] Interpreted by: ANGELICA MELENDREZ DO Electronically signed by: Impression Primary Impression: S/P coronary artery stent placement Additional Impression: Chest pain Disposition: 01 HOME, SELF-CARE Condition: Stable Departure-Patient Inst. Decision time for Depature: 14:16 Referrals: JORDY DISLA DO (PCP/Family) Primary Care Physician Patient Instructions: Chest Pain (DC) Add. Discharge Instructions: 1. Continue current medications. Follow-up with Dr. Disla. All discharge instructions reviewed with patient and/or family. Voiced understanding. Copy Copies To 1: MAGGIE WATKINS MD FACP FACC CCDS; JORDY DISLA PETER J TRAINING DEVELOPER Dec 15, 2020 11:57
[2020-12-15 12:00] LABS: ALBUMIN 3.8 GM/DL (3.2-4.5); POTASSIUM 4.7 MMOL/L (3.6-5.0)
[2020-12-15 12:01] LABS: CALCIUM 9.1 MG/DL (8.5-10.1); PROTHROMBIN TIME PATIENT 13.3 SEC (12.2-14.7)
[2020-12-15 12:02] LABS: TOTAL PROTEIN 6.8 GM/DL (6.4-8.2)
[2020-12-15 12:04] LABS: BILIRUBIN,TOTAL 0.7 MG/DL (0.1-1.0)
[2020-12-15 12:06] LABS: CREATININE SERUM 1.01 MG/DL (0.60-1.30)
--- NOTE | 2020-12-15 12:07 | Diagnostic Imaging Report ---
EXAMINATION: Chest, 1 view. HISTORY: Chest pain. COMPARISON: 10/10/2017. FINDINGS: There is elevation of the right hemidiaphragm. No focal consolidation is seen. Artifact is seen overlying the right lower lobe. No large pleural effusion or pneumothorax is seen. The cardiomediastinal silhouette is normal in size and contour. No acute osseous abnormality is seen. IMPRESSION: 1. No acute pleuroparenchymal process. 2. Elevated right hemidiaphragm which appears new compared to the prior exam. 3. Artifact overlying the right lower lobe. This is likely secondary to clothing. Dictated by: Dictated on workstation # [id number]
[2020-12-15 12:08] LABS: MAGNESIUM 2.2 MG/DL (1.6-2.4)
--- NOTE | 2020-12-15 12:33 | Diagnostic Imaging Report ---
INDICATION: Headache, loss of balance, and history of breast cancer. TECHNIQUE: Multiple contiguous axial images were obtained through the brain without the use of intravenous contrast. Auto Exposure Controls were utilized during the CT exam to meet ALARA standards for radiation dose reduction. COMPARISON: 09/04/2012. FINDINGS: There are no extra-axial fluid collections. No intracranial hemorrhage. No intracranial mass effect or midline shift. The ventricles are normal in size and position. There are no discrete parenchymal abnormalities in the brain. The calvarial windows are unremarkable. IMPRESSION: Negative noncontrast brain CT. Dictated by: Dictated on workstation # [id number]
[2020-12-15 14:26] VITALS: BP 142/70
== END 2020-12-15 14:26 | disposition home or self-care (01) ==
LOC: EDUNIT# 11:32 → ER 11:35
DX: R07.9 Chest pain, unspecified (principal); E03.9 Hypothyroidism, unspecified; K21.9 Gastro-esophageal reflux disease without esophagitis; Z79.890 Hormone replacement therapy; Z95.5 Presence of coronary angioplasty implant and graft; Z79.82 Long term (current) use of aspirin; Z79.01 Long term (current) use of anticoagulants; Z79.899 Other long term (current) drug therapy
CPT/HCPCS: 36415; 70450; 71045; 80053; 83735; 83874; 83880; 84484; 85025; 85610; 85730; 93005; 93041

== ENCOUNTER 2021-06-02 13:00 | Day surgery (SDC) | payer MEDICARE ==
[2021-06-02] VITALS (13 sets, daily range): BP systolic 120–140; BP diastolic 57–75
[~2021-06-02] VITALS: Ht 170.2 cm; Wt 73.5 kg
[2021-06-02 11:43] LABS: HEMATOCRIT 39 % (35-52); HEMOGLOBIN 12.7 g/dL (11.5-16.0); MEAN CORPUSCULAR HEMOGLOBIN 31 pg (25-34); MEAN CORPUSCULAR HGB CONC 33 g/dL (32-36); MEAN CORPUSCULAR VOLUME 96 fL (80-99); MEAN PLATELET VOLUME 9.9 fL (9.0-12.2); PLATELET COUNT 266 10^3/uL (130-400); WHITE BLOOD COUNT 7.7 10^3/uL (4.3-11.0)
[2021-06-02 11:57] LABS: INR 0.9 (0.8-1.4)
[2021-06-02 12:03] LABS: ALBUMIN 4.1 GM/DL (3.2-4.5); BILIRUBIN,TOTAL 0.6 MG/DL (0.1-1.0); CALCIUM 9.5 MG/DL (8.5-10.1); CREATININE SERUM 1.07 MG/DL (0.60-1.30); POTASSIUM 4.4 MMOL/L (3.6-5.0); TOTAL PROTEIN 7.2 GM/DL (6.4-8.2)
[~2021-06-02 13:00] MED LIST changes: +ADAL40PE5 SQ; +ALLO100T PO; +ALPR0.254 PO; +BUSP5TAB59 PO; +CHOL-34 PO; +HEParin (CATH LAB) 2,000 ML IV ONE; +LIDOCAINE 1% INJ 20 ML VIAL ONE; +MELA1TAB20 PO; +METO-333 PO; +MIDAZOLAM 5 MG/5 ML (VERSED) VIAL ONE; +MULT-1067 PO; +NS IV 1000 ML 1,000 ML IV SCH; +NS IV 1000 ML 1,000 ML ONE; +TRAM50TA3 PO; +fentaNYL INJ 100 MCG/2 ML AMP ONE
[2021-06-02] MEDS ORDERED: HEParin 1000 UNIT/ML (10ML VIAL) FOR BOLUS ONE (13:20)
[2021-06-02] MEDS ORDERED: EPTIFIBATIDE BOLUS 20 ML IV ONE (13:21)
[2021-06-02] MEDS ORDERED: diphenhydrAMINE 50 MG/ML INJ (BENADRYL) ONE (13:24)
[2021-06-02] MEDS ORDERED: NITRO DRIP 25000 MCG/D5W 0 ML IV ONE (13:30)
[2021-06-02] MEDS ORDERED: CLOPIDOGREL 300 MG (PLAVIX) TABLET PO ONE (13:54)
[2021-06-02] MEDS ORDERED: meTOprolol 5 MG/5 ML (LOPRESSOR) VIAL ONE (13:54)
[2021-06-02] MEDS ORDERED: ASPIRIN 81 MG CHEW (CHILDREN'S ASA) ONE (13:54)
[2021-06-02] MEDS ORDERED: ACETAMINOPHEN 325 MG TABLET PO PRN (15:30)
[2021-06-02] MEDS ORDERED: ALPRAZolam 0.25 MG (XANAX) TAB PO PRN (15:30)
[2021-06-02] MEDS ORDERED: PATIENT MAY USE OWN MEDS, ALL PO SCH (15:30)
[2021-06-02] MEDS ORDERED: ADALIMUMAB 40 MG SQ SCH (15:30)
[2021-06-02] MEDS: NS IV 1000 ML 1,000 ML IV SCH (15:40)
[2021-06-02] MEDS ORDERED: NON-FORMULARY MEDICATION 1 EA EA (Melatonin/Pyridoxine HCl (B6) (Melatonin 10 mg Tablet) 1 PO SCH (21:00)
[2021-06-02] MEDS ORDERED: MELATONIN 10 MG TABLET PO SCH (21:00)
[2021-06-02] MEDS: meTOprolol TARTRATE 25 MG (LOPRESSOR) TABLET PO SCH (21:59)
[2021-06-03] VITALS: BP 149/60
[2021-06-03 04:00] VITALS: BP 175/74
[2021-06-03] MEDS: NS IV 1000 ML 1,000 ML IV SCH (04:50)
[2021-06-03 05:00] LABS: BASOPHILS # (AUTO) 0.1 10^3/uL (0.0-0.1); BASOPHILS % (AUTO) 1 % (0-10); EOSINOPHILS # (AUTO) 0.2 10^3/uL (0.0-0.3); EOSINOPHILS % (AUTO) 2 % (0-10); HEMATOCRIT 36 % (35-52); HEMOGLOBIN 11.7 g/dL (11.5-16.0); LYMPHOCYTES # (AUTO) 2.6 10^3/uL (1.0-4.0); LYMPHOCYTES % (AUTO) 34 % (12-44); MEAN CORPUSCULAR HEMOGLOBIN 31 pg (25-34); MEAN CORPUSCULAR HGB CONC 32 g/dL (32-36); MEAN CORPUSCULAR VOLUME 96 fL (80-99); MEAN PLATELET VOLUME 9.8 fL (9.0-12.2); MONOCYTES # (AUTO) 0.9 10^3/uL (0.0-1.0); MONOCYTES % (AUTO) 12 % (0-12); NEUTROPHILS # (AUTO) 3.9 10^3/uL (1.8-7.8); NEUTROPHILS % (AUTO) 52 % (42-75); PLATELET COUNT 216 10^3/uL (130-400); WHITE BLOOD COUNT 7.6 10^3/uL (4.3-11.0)
[2021-06-03 05:27] LABS: ALBUMIN 3.5 GM/DL (3.2-4.5); POTASSIUM 4.2 MMOL/L (3.6-5.0)
[2021-06-03 05:28] LABS: CALCIUM 9.6 MG/DL (8.5-10.1)
[2021-06-03 05:29] LABS: TOTAL PROTEIN 6.1 GM/DL (6.4-8.2)
[2021-06-03 05:31] LABS: BILIRUBIN,TOTAL 0.3 MG/DL (0.1-1.0)
[2021-06-03 05:33] LABS: CREATININE SERUM 1.06 MG/DL (0.60-1.30)
[2021-06-03] MEDS ORDERED: LEVOTHYROXINE 88 MCG (LEVOTHORID) TAB PO SCH (06:30)
[2021-06-03 07:00] VITALS: BP 162/66
--- NOTE | 2021-06-03 08:07 | Progress Note - Cardiology ---
Cardiology SOAP Progress Note Objective: I&O/Vital Signs 06/03/21 06/03/21 06/03/21 06/03/21 00:00 00:24 01:00 04:00 Temp 36.4 Pulse 66 63 62 Resp 16 16 B/P (MAP) 149/60 (89) 175/74 (107) Pulse Ox 99 99 O2 Delivery Room Air Room Air 06/03/21 00:00 Intake Total 240 ml Balance 240 ml Weight (Pounds): 153 Weight (Ounces): 7.0 Weight (Calculated Kilograms): 69.722888 Results/Procedures: Labs Laboratory Tests 06/02/21 11:28: White Blood Count 7.7, Red Blood Count 4.05, Hemoglobin 12.7, Hematocrit 39, Mean Corpuscular Volume 96, Mean Corpuscular Hemoglobin 31, Mean Corpuscular Hemoglobin Concent 33, Red Cell Distribution Width 13.8, Platelet Count 266, Mean Platelet Volume 9.9, Prothrombin Time 13.0, INR Comment 0.9, Activated Partial Thromboplast Time 32, Sodium Level 142, Potassium Level 4.4, Chloride Level 108H, Carbon Dioxide Level 26, Anion Gap 8, Blood Urea Nitrogen 18, Creatinine 1.07, Estimat Glomerular Filtration Rate 53, BUN/Creatinine Ratio 17, Glucose Level 89, Calcium Level 9.5, Corrected Calcium 9.4, Total Bilirubin 0.6, Aspartate Amino Transf (AST/SGOT) 36H, Alanine Aminotransferase (ALT/SGPT) 62H, Alkaline Phosphatase 65, Total Protein 7.2, Albumin 4.1, Triglycerides Level 129, Cholesterol Level 193, LDL Cholesterol Direct 118, VLDL Cholesterol 26, HDL Cholesterol 58 06/03/21 04:55: White Blood Count 7.6, Red Blood Count 3.78L, Hemoglobin 11.7, Hematocrit 36, Mean Corpuscular Volume 96, Mean Corpuscular Hemoglobin 31, Mean Corpuscular Hemoglobin Concent 32, Red Cell Distribution Width 14.0, Platelet Count 216, Mean Platelet Volume 9.8, Sodium Level 142, Potassium Level 4.2, Chloride Level 110H, Carbon Dioxide Level 21, Anion Gap 11, Blood Urea Nitrogen 16, Creatinine 1.06, Estimat Glomerular Filtration Rate 54, BUN/Creatinine Ratio 15, Glucose Level 112H, Calcium Level 9.6, Corrected Calcium 10.0, Total Bilirubin 0.3, Aspartate Amino Transf (AST/SGOT) 28, Alanine Aminotransferase (ALT/SGPT) 49, Alkaline Phosphatase 60, Total Protein 6.1L, Albumin 3.5, Immature Granulocyte % (Auto) 0, Neutrophils (%) (Auto) 52, Lymphocytes (%) (Auto) 34, Monocytes (%) (Auto) 12, Eosinophils (%) (Auto) 2, Basophils (%) (Auto) 1, Neutrophils # (Auto) 3.9, Lymphocytes # (Auto) 2.6, Monocytes # (Auto) 0.9, Eosinophils # (Au to) 0.2, Basophils # (Auto) 0.1, Immature Granulocyte # (Auto) 0.0, Magnesium Level 2.0 Microbiology 06/02/21 MRSA Screen - Final, Complete MRSA not isolated Laboratory Tests 06/02/21 11:28 06/03/21 04:55 A/P: Assessment: Syncope - undetermined etiology palpitations - undetermined etiology CAD - Card cath of 08/20/17 showed 80% prox and ostial RCA stenosis that was successfully stented with Alp Xience 3.5x15 mm stent; mid RCA 40-50% (unchanged compared to a study of 08/15/12), mild L cor plaques. - MPI of 10-11-17: This study is suggestive of a [id number]-[id number] amount of basal inferior ischemia (similar to the MPI of 08/19/17 that led to cath of 08/20/17). Normal regional wall motion and normal global left ventricular systolic function with a calculated ejection fraction of 58%. - Last card cath of 10/12/17 that showed a widely patent prox RCA stent, 40% mid RCA (unchanged) stenosis and mild L cor plaques, LVEDP 11 mmHg, LVEF 60% - Echo of July 27, 2019 showed LVEF 60-65%, mild MR & AoR, PASP 30-35 mmHg Carotid dz: - Carotid u/s of June 2018 showed minimal bilat plaque H/O elevated liver enzymes - while taking statin tx which resolved after cessation Gastroesophageal reflux - managed by PCP GI Procedures - History of esophageal stricture dilation by Dr. Lopez in 2000. -History of cholecystectomy. 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 Maturity onset diabetes mellitus. - managed by PCP Hypothyroidism -being treated with thyroid replacement therapy. Managed by PCP History of chest wall tumor - removed in 1998. Orthopedic - History of right total knee replacement several years ago - History of arthritis for which she is on chronic steroid tx -followed by her PCP IAIN SANCHEZ Jun 03, 2021 08:07
[2021-06-03] MEDS ORDERED: ASPI81TA64 PO (08:09)
[2021-06-03] MEDS ORDERED: ATOR40TA PO (08:09)
--- NOTE | 2021-06-03 08:09 | Discharge Inst-Cardiology ---
Discharge Inst-Cardiac Discharge Medications New Medications: Aspirin (Children's Aspirin) 81 Mg Tab.chew 81 MG PO DAILY, #90 TAB 3 Refills Atorvastatin Calcium (Lipitor) 40 Mg Tablet 40 MG PO HS, #30 TAB 3 Refills Continued Medications: Adalimumab (Humira Pen) 40 Mg/0.4 Ml Pen.ij.kit 40 MG SQ TUESDAYS, EA Allopurinol (Allopurinol) 100 Mg Tablet 100 MG PO DAILY, TAB ALPRAZolam (ALPRAZolam) 0.25 Mg Tablet 0.25 MG PO BID PRN for ANXIETY, TAB Buspirone HCl (Buspirone HCl) 5 Mg Tablet 5 MG PO DAILY, TAB Cholecalciferol (Vitamin D3) (Vitamin D3) 25 Mcg (1000 Unit) Tablet 25 MCG PO DAILY, TAB Clopidogrel Bisulfate (Plavix) 75 Mg Tablet 75 MG PO DAILY, TAB Cyanocobalamin (Vitamin B-12) (Vitamin B-12) 1,000 Mcg Tablet 1000 MCG PO DAILY, TAB Levothyroxine Sodium (Levothyroxine Sodium) 88 Mcg Tablet 88 MCG PO DAILY, TAB Melatonin/Pyridoxine HCl (B6) (Melatonin 10 mg Tablet) 10 Mg-10 Mg Tab.mphase 1 EACH PO HS, EA Metoprolol Tartrate (Metoprolol Tartrate) 25 Mg Tablet 25 MG PO BID, TAB Multivitamin/Iron/Folic Acid (Centrum Adults Tablet) 18 Mg Iron-400 Mcg Tablet 1 EACH PO DAILY, TAB Tramadol HCl (Tramadol HCl) 50 Mg Tablet 100 MG PO DAILY, TAB TAKES 2 (50MG) TABLETS Discontinued Medications: Aspirin (Aspirin EC) 81 Mg Tablet.dr 81 MG PO DAILY, TAB Patient Instructions Patient Instructions: Please schedule follow up appointment to see Dr. Jackson in 1-2 weeks IAIN SANCHEZ Jun 03, 2021 08:09
[2021-06-03] MEDS: meTOprolol TARTRATE 25 MG (LOPRESSOR) TABLET PO SCH (08:55)
[2021-06-03] MEDS ORDERED: ASPIRIN 81 MG CHEW (CHILDREN'S ASA) PO SCH (09:00)
[2021-06-03] MEDS ORDERED: ALLOPURINOL 100 MG (ZYLOPRIM) TAB PO SCH (09:00)
[2021-06-03] MEDS ORDERED: busPIRone 5 MG (BUSPAR) TAB PO SCH (09:00)
[2021-06-03] MEDS ORDERED: VITAMIN D3 25 MCG (1,000 UNITS) TABLET PO SCH (09:00)
[2021-06-03] MEDS ORDERED: CYANOCOBALAMIN 1,000 MCG (VITAMIN B-12) TABLET PO SCH (09:00)
[2021-06-03] MEDS ORDERED: CLOPIDOGREL 75 MG (PLAVIX) TABLET PO SCH (09:00)
--- NOTE | 2021-06-03 09:42 | Progress Note - Cardiology ---
Cardiology SOAP Progress Note Subjective: No cp or palp or shortness of breath No groin or leg discomfort or discoloration Objective: I&O/Vital Signs 06/03/21 06/03/21 06/03/21 06/03/21 00:00 00:24 01:00 04:00 Temp 36.4 Pulse 66 63 62 Resp 16 16 B/P (MAP) 149/60 (89) 175/74 (107) Pulse Ox 99 99 O2 Delivery Room Air Room Air 06/03/21 06/03/21 06/03/21 06/03/21 07:00 07:00 08:00 08:00 Temp 36.6 Pulse 73 69 B/P (MAP) 162/66 (98) Pulse Ox 87 O2 Delivery Room Air 06/03/21 00:00 Intake Total 240 ml Balance 240 ml Weight (Pounds): 153 Weight (Ounces): 7.0 Weight (Calculated Kilograms): 69.237698 Condition: DP/PT pulses palpable Bruising: mild bruising Constitutional: AAO x 3, well-developed, well-nourished Respiratory: No accessory muscle use; other (good, bilat air entry) Cardiovascular: regular rate-rhythm, S1 and S2, systolic murmur (soft RODDY at card base) Gastrointestional: No tender; soft; No guarding, No rebound; audible bowel sounds Extremities: No clubbing, No cyanosis, No significant edema Neurologic/Psychiatric: other (moves all limbs equally) Skin: No rash on exposed areas, No ulcerations on exposed areas Results/Procedures: Labs Laboratory Tests 06/02/21 11:28: White Blood Count 7.7, Red Blood Count 4.05, Hemoglobin 12.7, Hematocrit 39, Mean Corpuscular Volume 96, Mean Corpuscular Hemoglobin 31, Mean Corpuscular Hemoglobin Concent 33, Red Cell Distribution Width 13.8, Platelet Count 266, Mean Platelet Volume 9.9, Prothrombin Time 13.0, INR Comment 0.9, Activated Partial Thromboplast Time 32, Sodium Level 142, Potassium Level 4.4, Chloride Level 108H, Carbon Dioxide Level 26, Anion Gap 8, Blood Urea Nitrogen 18, Cre atinine 1.07, Estimat Glomerular Filtration Rate 53, BUN/Creatinine Ratio 17, Glucose Level 89, Calcium Level 9.5, Corrected Calcium 9.4, Total Bilirubin 0.6, Aspartate Amino Transf (AST/SGOT) 36H, Alanine Aminotransferase (ALT/SGPT) 62H, Alkaline Phosphatase 65, Total Protein 7.2, Albumin 4.1, Triglycerides Level 129, Cholesterol Level 193, LDL Cholesterol Direct 118, VLDL Cholesterol 26, HDL Cholesterol 58 06/03/21 04:55: White Blood Count 7.6, Red Blood Count 3.78L, Hemoglobin 11.7, Hematocrit 36, Mean Corpuscular Volume 96, Mean Corpuscular Hemoglobin 31, Mean Corpuscular Hemoglobin Concent 32, Red Cell Distribution Width 14.0, Platelet Count 216, Mean Platelet Volume 9.8, Sodium Level 142, Potassium Level 4.2, Chloride Level 110H, Carbon Dioxide Level 21, Anion Gap 11, Blood Urea Nitrogen 16, Creatinine 1.06, Estimat Glomerular Filtration Rate 54, BUN/Creatinine Ratio 15, Glucose Level 112H, Calcium Level 9.6, Corrected Calcium 10.0, Total Bilirubin 0.3, Aspartate Amino Transf (AST/SGOT) 28, Alanine Aminotransferase (ALT/SGPT) 49, Alkaline Phosphatase 60, Total Protein 6.1L, Albumin 3.5, Immature Granulocyte % (Auto) 0, Neutrophils (%) (Auto) 52, Lymphocytes (%) (Auto) 34, Monocytes (%) (Auto) 12, Eosinophils (%) (Auto) 2, Basophils (%) (Auto) 1, Neutrophils # (Auto) 3.9, Lymphocytes # (Auto) 2.6, Monocytes # (Auto) 0.9, Eosinophils # (Auto) 0.2, Basophils # (Auto) 0.1, Immature Granulocyte # (Auto) 0.0, Magnesium Level 2.0 Microbiology 06/02/21 MRSA Screen - Final, Complete MRSA not isolated Laboratory Tests 06/02/21 11:28 06/03/21 04:55 A/P: Assessment: CAD - Card cath of 08/20/17 showed 80% prox and ostial RCA stenosis that was successfully stented with Alp Xience 3.5x15 mm stent; mid RCA 40-50% (unchanged compared to a study of 08/15/12), mild L cor plaques. - MPI of 10-11-17: This study is suggestive of a [id number]-au-eknhdfzb amount of basal inferior ischemia (similar to the MPI of 08/19/17 that led to cath of 08/20/17). Normal regional wall motion and normal global left ventricular systolic function with a calculated ejection fraction of 58%. - Echo of July 27, 2019 showed LVEF 60-65%, mild MR & AoR, PASP 30-35 mmHg - Last cath 06/02/21: 90% prox stenosis in RCA (hard lesion, prox to prox edge of previous stent that did not show stent restenosis) treated with Skypoint 3.5x12 stent that was postdilated with a 4.5 mm non-compliant balloon with reduction of stenosis to approx 10% Carotid dz: - Carotid u/s of June 2018 showed minimal bilat plaque H/O elevated liver enzymes - while taking statin tx which resolved after cessation Gastroesophageal reflux - managed by PCP GI Procedures - History of esophageal stricture dilation by Dr. Lopez in 2000. -History of cholecystectomy. 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 Maturity onset diabetes mellitus. - managed by PCP Hypothyroidism -being treated with thyroid replacement therapy. Managed by PCP History of chest wall tumor - removed in 1998. Orthopedic - History of right total knee replacement several years ago - History of arthritis for which she is on chronic steroid tx -followed by her PCP Plan: * I have reviewed her cath findings and interventions undertaken with her * Compliance and outpt f/u advised MAGGIE WATKINS MD FACP FACC CCDS Jun 03, 2021 09:42
[2021-06-03 11:06] VITALS: BP 146/73
--- NOTE | 2021-06-03 20:37 | CARDIAC CATHETERIZATION ---
DATE OF SERVICE: 06/02/2021 CARDIAC CATHETERIZATION AND CORONARY INTERVENTION REPORT The patient is a 80-year-old lady who has coronary artery disease and has been experiencing chest discomfort. Cardiac catheterization was carried out today after having obtained an informed consent. DESCRIPTION OF PROCEDURE: She was brought to the cardiac catheterization laboratory in a fasting state. Right groin was prepared and draped in the usual sterile fashion. Lidocaine 1% was used for local anesthesia. Modified Seldinger technique was used to advance a 5-Omani sheath in right femoral artery. Angiography of the right femoral artery was carried out through the sheath. We used 5-Omani JL4 catheter for left coronary angiography, 5-Omani JR4 catheter for right coronary angiography. We used a 5-Omani pigtail catheter to carry out left heart catheterization, left ventricular angiography. Subsequently, percutaneous intervention was carried out to the right coronary artery where she was found to have an 90% proximal and ostial stenosis. PERCUTANEOUS INTERVENTION TO THE RIGHT CORONARY ARTERY: We exchanged the sheath over a wire for a 6-Omani sheath. We used a 6-Omani JL3.5 guide catheter with side holes. We advanced a BMW wire across the lesion in the proximal right coronary artery, which was just proximal to the proximal edge of the previously placed stent, which is known to be Kamilla 3.5 x 33 mm stent and that was placed in 04/2020. Subsequently, we carried out stenting of the 90% stenosis with a Skypoint 3.5 x 12 mm balloon. The stent was made to slightly overlap the proximal part of the previous stent. The balloon was deployed at 20 atmospheres. Because it appeared that the stent was not fully deployed in its middle portion, we carried out post-dilation with a 4.0 x 20 mm balloon. Subsequently, we carried out another post-dilation with a 4.5 x 20 mm noncompliant balloon. Balloon inflations were carried out up to 20 atmospheres. The stenosis was reduced from 90% to less than 10%. Flow throughout the vessel was normal (HILARY 3). The patient tolerated the procedure well. The patient received intravenous heparin and Integrilin bolus during the procedure. At the end of the procedure, Mynx was used to achieve hemostasis following sheath removal. She tolerated the procedure well. HEMODYNAMICS: Left ventricular end-diastolic pressure following coronary angiography was 13 mmHg. There is no significant pressure gradient on pullback across the aortic valve. LEFT VENTRICULAR ANGIOGRAPHY: Left ventricular angiography was carried out in the right anterior oblique projection. Global left ventricular systolic function is well preserved. Left ventricular ejection fraction is approximately 50 to 55%. CORONARY ANGIOGRAPHY: Left main coronary artery is free of significant disease. Left anterior descending and left circumflex arteries have mild plaques. Right coronary artery is dominant and had a patent stent in its proximal portion that is known to be Kamilla 3.5 x 33 mm stent. Proximal to the proximal edge of the stent, there was up to 90% stenosis to which successful percutaneous intervention was carried out. Following deployment of 3.5 x 12 mm Skypoint stent and post-dilation with 4.5 x 20 mm noncompliant balloon, there is less than 10% residual stenosis and flow throughout the vessel is normal. The right coronary artery is dominant. CONCLUSIONS: 1. Coronary artery disease primarily consisting of 90% proximal stenosis of the right coronary, to which successful stenting was carried out with a Skypoint 3.5 x 12 mm stent that was postdilated with a 4.5 x 20 mm noncompliant balloon. The previously placed 3.5 x 33 mm Kamilla stent is patent in the mid right coronary artery. The right coronary artery has mild diffuse disease. The left coronary system has mild diffuse disease. 2. Left ventricular end-diastolic pressure 13 mmHg. 3. Left ventricular ejection fraction approximately 50%. Job ID: [id number] DocumentID: [id number] Dictated Date: 06/03/2021 17:45:46 Police Patrol Officer Date: 06/03/2021 20:35:56 Dictated By: MAGGIE WATKINS MD, MA, FACP, FACC,
== END 2021-06-03 11:11 | disposition home or self-care (01) ==
LOC: CATH 13:00 → CSD 14:25 → CATH 06-03 11:11
PROVIDERS: ATTEND Internal Medicine Cardiovascular Disease
DX: I25.10 Atherosclerotic heart disease of native coronary artery without angina pectoris (principal); I65.23 Occlusion and stenosis of bilateral carotid arteries; K21.9 Gastro-esophageal reflux disease without esophagitis; E11.9 Type 2 diabetes mellitus without complications; E03.9 Hypothyroidism, unspecified; M19.90 Unspecified osteoarthritis, unspecified site; R42 Dizziness and giddiness; I08.0 Rheumatic disorders of both mitral and aortic valves; R00.2 Palpitations; Z85.3 Personal history of malignant neoplasm of breast; Z95.5 Presence of coronary angioplasty implant and graft; Z79.52 Long term (current) use of systemic steroids; Z79.890 Hormone replacement therapy
CPT/HCPCS: 80053; 80061; 85027; 85610; 85730; 87081; 93458; C1725; C1760; C1769; C1874; C1887; C1894 ×2; C9600; 36415; 83735; 85025; 93005

== ENCOUNTER 2021-07-28 12:00 | Day surgery (SDC) | payer MEDICARE ==
[~2021-07-28] VITALS: Ht 170.2 cm; Wt 67.1 kg
[2021-07-28 11:14] VITALS: BP 142/65
[~2021-07-28 12:00] MED LIST changes: +ASPI81TA64 PO; +ATOR40TA PO; -HEParin (CATH LAB) 2,000 ML IV ONE; +LIDOCAINE 1% INJ 20 ML VIAL INJ ONE; -MIDAZOLAM 5 MG/5 ML (VERSED) VIAL ONE; -NS IV 1000 ML 1,000 ML IV SCH; -NS IV 1000 ML 1,000 ML ONE; -fentaNYL INJ 100 MCG/2 ML AMP ONE
--- NOTE | 2021-07-28 21:38 | OPERATIVE REPORT ---
DATE OF SERVICE: 07/28/2021 PREOPERATIVE DIAGNOSIS: Near syncope. POSTOPERATIVE DIAGNOSIS: Near syncope. PROCEDURE: Implantable loop recorder implantation. DESCRIPTION OF PROCEDURE: Implantable loop recorder implantation was carried out after having obtained an informed consent. [facility] The left prepectoral area was prepared and draped in the usual sterile fashion. Lidocaine 1% was used for local anesthesia. We used the tools provided with the [employer]onic LINQ device to make a subcutaneous pocket anterior to the left fourth intercostal space into which the device was placed and the wound edges were closed with Dermabond and Steri-Strips. The serial number of the device is [id number]. Job ID: [id number] DocumentID: [id number] Dictated Date: 07/28/2021 12:01:05 Window Draper Date: 07/28/2021 21:36:56 Dictated By: MAGGIE WATKINS MD, MA, FACP, FACC,
== END 2021-07-28 12:18 | disposition home or self-care (01) ==
LOC: CATH 12:00
PROVIDERS: ATTEND Internal Medicine Cardiovascular Disease
DX: R55 Syncope and collapse (principal)
CPT/HCPCS: 33285; C1764